=== PATIENT | female | born 1950 | race Caucasian/White ===

== ENCOUNTER → 2021-03-07 | Outpatient (CLI) | payer OTHER ==
[~2021-03-07] MED LIST: ACET325C5 PO; ANOR1AER PO; ASPI81TA86 PO; ECOT81TA5 PO; ERGO500029; EZET10TA21 PO; FENO48TA8 PO; FLUT1BLS8; FLUTISP; LEVO75TA4; LISI-898 PO; LISI20TA33; NASC1SPR NARES; PROAAER10 INH; SYNT125T PO; VARE1TA PO; VITA50005 PO
== END ==
LOC: M LABSMTC 09:54 → MERGE 09:54
PROVIDERS: ATTEND Anesthesiology
DX: Z01.812 Encounter for preprocedural laboratory examination (principal); Z11.52 Encounter for screening for COVID-19

== ENCOUNTER → 2021-03-07 | Outpatient (CLI) | payer OTHER ==
[2021-03-07 14:44] LABS: BASO # 0.1 10^3/uL (0.0-0.2); BASO % 0.6 % (0.0-1.0); EOS # 0.2 10^3/uL (0.0-0.5); EOS % 2.1 % (0.0-3.0); HEMATOCRIT 35.1 % (36.0-47.0); HEMOGLOBIN 10.7 g/dl (12.0-15.5); LYMPH # 0.8 10^3/uL (1.5-5.0); LYMPH % 9.8 % (24.0-44.0); MEAN CORPUSCULAR HEMOGLOBIN 33.4 pg (27.0-33.0); MEAN CORPUSCULAR HGB CONC 30.5 g/dl (32.0-36.5); MEAN CORPUSCULAR VOLUME 109.7 fl (80.0-96.0); MONO # 0.6 10^3/uL (0.0-0.8); MONO % 7.2 % (2.0-8.0); NEUTROPHILS # 6.8 10^3/uL (1.5-8.5); NEUTROPHILS % 80.1 % (36.0-66.0); PLATELET COUNT, AUTOMATED 456 10^3/uL (150-450); WHITE BLOOD COUNT 8.5 10^3/uL (4.0-10.0)
[2021-03-07 14:52] LABS: INR 0.95; PROTHROMBIN TIME 13.1 SECONDS (12.7-14.5)
[2021-03-07 14:53] LABS: PARTIAL THROMBOPLASTIN TIME 37.5 SECONDS (25.9-37.0)
[2021-03-07 15:14] LABS: BLOOD UREA NITROGEN 17 MG/DL (7-18); CALCIUM LEVEL 9.6 MG/DL (8.8-10.2); CARBON DIOXIDE LEVEL 31 MEQ/L (21-32); CHLORIDE LEVEL 98 MEQ/L (98-107); CREATININE FOR GFR 0.54 MG/DL (0.55-1.30); GLOMERULAR FILTRATION RATE > 60.0 (>45); GLUCOSE, FASTING 81 MG/DL (70-100); SODIUM LEVEL 136 MEQ/L (136-145)
--- NOTE | 2021-03-12 09:28 | REP ---
INDICATION: RT LUNG MASS COMPARISON: Multiple. The latest prior examinations 12/03/2020 and 01/29/2021 from an outside institution have just been made available for review. TECHNIQUE: Standard helical technique without contrast. FINDINGS: There is no significant change in the appearance of the mediastinum or pulmonary jason. No mass or adenopathy has developed. There are no pleural or pericardial effusions. There is no significant change in the appearance of the imaged upper abdomen or imaged osseous structures. Evaluation of the lung hope shows a significant increase in size in the spiculated right upper lobe mass seen posteriorly which previously measured 1.2 x 1 cm now measuring 3.1 x 2.8 cm and seen in conjunction with a contiguous new asymmetric density more superiorly measuring 4.2 x 2 cm. The additional spiculated nodule in the right lung apex is unchanged. The 2 spiculated nodules in the left lung upper lobe are unchanged. The scattered asymmetric densities seen throughout the lung hope along with irregular pleural based densities appear stable. Once again, there are marked emphysematous changes status quo. IMPRESSION: Advanced abnormal lung field findings as described above. Some are stable while others have significantly increased and still others are new. The scattered asymmetric densities are too numerous to count or individually assess as on the prior exam. <Electronically signed by Alistair Mcclelland > 03/12/21 [id number]
--- NOTE | 2021-03-12 10:50 | ROOR ---
Patient Name: Hannah Mccarty Procedure Date: 03/12/2021 8:59 AM Date of : 1950 Admit Type: Outpatient Age: 70 Note Status: Finalized Attending MD: Nuzhat Manuel MD Procedure: Bronchoscopy Indications: Right upper lobe mass, Right upper lobe nodule, Personal history of lung cancer Providers: Nuzhat Manuel MD (Doctor), Rajesh Garcia DO (1st Assisting Doctor) Referring MD: 1. NO/Unknown PCP 1. NO/Unknown PCP, Admin. (Referring MD) Requesting Physician: Medicines: Lidocaine 4% via nebulizer with Albuterol 2.5 mg, Cetacaine topical, Epinephrine 1 mg/10 mL topical 2 mL, General Anesthesia Complications: No immediate complications. Estimated blood loss: Minimal Procedure: Pre-Anesthesia Assessment: - Prior to the procedure, a History and Physical was performed, and patient medications and allergies were reviewed. The patient's tolerance of previous anesthesia was also reviewed. The risks and benefits of the procedure and the sedation options and risks were discussed with the patient. All questions were answered, and informed consent was obtained. Prior Anticoagulants: The patient has taken no previous anticoagulant or antiplatelet agents. ASA Grade Assessment: III - A patient with severe systemic disease. After reviewing the risks and benefits, the patient was deemed in satisfactory condition to undergo the procedure. - Patient identification and proposed procedure were verified prior to the procedure by the physician, the nurse, the anesthesiologist, the tower control operator and the decontamination technician. The procedure was verified in the procedure room. The Bronchoscope was introduced through the mouth, via the endotracheal tube (the patient was intubated for the procedure) and advanced to the tracheobronchial tree of both lungs. The procedure was accomplished without difficulty. The patient tolerated the procedure well. Findings: The trachea is of normal caliber. The lawrence is sharp. The entire tracheobronchial tree was examined to at least the first subsegmental level. Bronchial mucosa showed scattered pitting and webbing. There were thick cedillo mucoid secretions in left upper lobe. In the posterior segment of the right upper lobe there was a friable endobronchial mucosal lesion. [place] [employer] Electromagnetic navigation bronchoscopy was performed. The CT scan was used for planning purposes. A virtual bronchoscopic image was generated using the planning software. The targets in the apical segment of the right upper lobe and in the posterior segment of the right upper lobe were marked and pathways were created. After a complete airway exam, the Robotic EM navigation phase was then begun to locate the target lesion(s). Positioning centrally (in relation to the lesion) was confirmed using the Olympus radial probe US catheter. Endobronchial biopsies of a mucosal lesion were performed in the posterior segment of the right upper lobe using a forceps and sent for histopathology examination. For target 1 transbronchial biopsies of a nodule were performed in the apical segment of the right upper lobe using forceps and sent for histopathology examination. The procedure was guided by fluoroscopy. Transbronchial biopsy technique was selected because the sampling site was not visible endoscopically. For target 2 transbronchial biopsies of a mass were performed in the posterior segment of the right upper lobe using forceps and sent for histopathology examination. The procedure was guided by fluoroscopy. Transbronchial biopsy technique was selected because the sampling site was not visible endoscopically. Bronchoalveolar lavage was performed in the RUL posterior segment (B2) of the lung and sent for routine cytology and bacterial, AFB and fungal analysis. The return was blood-tinged. Mucous plugs were present in the return fluid. An endobronchial ultrasound endoscope was utilized in order to assist with fine needle aspiration in the subcarinal area. Transbronchial needle aspirations of a lymph node were performed in the subcarinal area using an Olympus EBUS-TBNA 21 gauge needle and sent for routine cytology. The procedure was guided by ultrasound. Impression: - Right upper lobe mass - Right upper lobe nodule - Personal history of lung cancer - Electromagnetic navigation bronchoscopy was performed. - An endobronchial biopsy was performed. - Transbronchial lung biopsies were performed. - Transbronchial lung biopsies were performed. - Bronchoalveolar lavage was performed. - Endobronchial ultrasound was performed. - A transbronchial needle aspiration was performed. Recommendation: - Await test results. Procedure Code(s): --- Professional --- 05488, Bronchoscopy, rigid or flexible, including fluoroscopic guidance, when performed; with transbronchial needle aspiration biopsy(s), trachea, main stem and/or lobar bronchus(i) 65500, Bronchoscopy, rigid or flexible, including fluoroscopic guidance, when performed; with transbronchial lung biopsy(s), single lobe 71414, Bronchoscopy, rigid or flexible, including fluoroscopic guidance, when performed; with bronchial alveolar lavage 32616, Bronchoscopy, rigid or flexible, including fluoroscopic guidance, when performed; with computer-assisted, image-guided navigation (List separately in addition to code for primary procedure[s]) 18426, Bronchoscopy, rigid or flexible, including fluoroscopic guidance, when performed; with transendoscopic endobronchial ultrasound (EBUS) during bronchoscopic diagnostic or therapeutic intervention(s) for peripheral lesion(s) (List separately in addition to code for primary procedure[s]) CPT copyright 2019 [employer]. All rights reserved. The codes documented in this report are preliminary and upon plug stitcher review may be revised to meet current compliance requirements. Attending Participation: I personally performed the entire procedure. Nuzhat Manuel MD 03/12/2021 10:50:41 AM Rajesh Garcia DO Number of Addenda: 0 Note Initiated On: 03/12/2021 8:59 AM
== END ==
LOC: M RAD 12:56
PROVIDERS: ATTEND Internal Medicine Pulmonary Disease
DX: C34.31 Malignant neoplasm of lower lobe, right bronchus or lung (principal); R91.1 Solitary pulmonary nodule; R91.8 Other nonspecific abnormal finding of lung field

== ENCOUNTER 2021-03-12 08:06 | Day surgery (SDC) | payer OTHER ==
[~2021-03-12] VITALS: Ht 157.5 cm; Wt 47.5 kg
[~2021-03-12 08:06] MED LIST changes: +ALBUTEROL SULFATE 2.5 MG/0.5 ML INH NEB SOLN INH ONE; +LIDOCAINE 1% MDV 20ML VIAL SQ PRN; +LIDOCAINE 4% INJ 5ML AMP NEB ONE; +LR 1,000 ML IV ONE
--- OUTSIDE RECORDS SUMMARY | 2021-03-12 08:11 | CCD | Summary of Care ---
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 Name Role Phone Gail Rosario MD PCP Reason for Referral * Diagnostic Radiology (Routine) Referred By Contact Referred To Contact Status Reason Specialty Diagnoses / Procedures Jay Echevarria MD [address] [address] Email: [email or web address] Authorized Radiology Diagnoses Malignant neoplasm of bronchus of right lower lobe P rocedures Pet with CT Imaging Skull to Thigh Electronically signed by Tomas Cunha MD at Reason for Visit * Reason Comments Follow-up Encounter Details Care Team Description Date Type Department Tomas Cunha MD [address] [address] [phone] Malignant neoplasm of bronchus of right lower lobe (Primary Dx) 12/03/2020 Office Visit [facility] RADIATION ONCOLOGY [address] [address] Allergies Comments Active Allergy Reactions Severity Noted Date Muscle weakness Fenofibrate Other (See 04/11/2019 Comments) [place] weak Ezetimibe Low 04/11/2019 documented as of this encounter (statuses as of 12/18/2020) Medications End Date Status Medication Sig Dispensed Refills Start Date Active levothyroxine (SYNTHROID, Take 50 mcg 0 LEVOTHROID) 125 MCG by mouth tablet Daily Alternates with 75 mcg Active aspirin 81 MG tablet Take 81 mg by 0 mouth daily Active vitamin D Take 50,000 0 (ERGOCALCIFEROL) 68023 Units by units capsule mouth every 7 (seven) days Active umeclidinium-vilanterol Inhale 1 puff 0 (ANORO ELLIPTA) 62.5-25 into the MCG/INH inhaler lungs daily Active fluticasone (FLONASE) 50 1 spray by 0 MCG/ACT nasal spray Nasal route daily Active Cyanocobalamin (NASCOBAL) by Nasal 0 500 MCG/0.1ML SOLN route Active Lisinopril 20 MG Oral Take 20 mg by 0 Tablet (ZESTRIL) mouth daily Active Prolia 60 MG/ML Inject 60 mg 0 Subcutaneous Solution into the skin Prefilled Syringe once (denosumab) Active Calcium Carbonate 600 MG Take 600 mg 0 Oral Tablet (OS-JIM) by mouth Two times daily with meals Active Pentoxifylline ER 400 MG Take 400 mg 0 Oral Tablet Extended by mouth Two Release (TRENTAL) Times Daily Active Trelegy Ellipta Inhale into 0 100-62.5-25 MCG/INH the lungs Aerosol Powder Breath daily Activated (Psnpoawnqpd-Zpvhpzdwu-Vq lant) documented as of this encounter (statuses as of 12/18/2020) Active Problems Problem Noted Date Malignant neoplasm of bronchus of right lower lobe 1 Cancer Staging: Clinical stage from 01/2018: Stage IA2 (cT1b, cN0, cM0) - Signed by Tomas Cunha MD on 03/2018 documented as of this encounter (statuses as of 12/18/2020) Social History Date Tobacco Use Types Packs/Day Years Used Former Smoker Cigarettes Smokeless Tobacco: Never Used Comments: quit smoking 01/2018 Comments Alcohol Use Standard Drinks/Week 2 cans of beer per day Yes 0 (1 standard drink = 0.6 o z pure alcohol) Sex Assigned at Date Recorded Not on file Date Recorded COVID-19 Exposure Response 12/03/2020 12:31 PM EDT In the last month, have you been in contact with No / Unsure someone who was confirmed or suspected to have Coronavirus / COVID-19? documented as of this encounter Last Filed Vital Signs Reading Time Taken Comments Vital Sign 129/71 12/03/2020 1:30 PM EDT Blood Pressure 81 12/03/2020 1:30 PM EDT Pulse - - Temperature 16 12/03/2020 1:30 PM EDT Respiratory Rate 99% 12/03/2020 1:30 PM EDT Oxygen Saturation - - Inhaled Oxygen Concentration - - Weight - - Height - - Body Mass Index documented in this encounter Progress Notes * Jay Echevarria MD - 12/03/2020 1:45 PM EDT Radiation Oncology Follow-up Visit Report Subjective: Diagnosis and Stage: lung, right lower lobe, NSCLC, adenocarcinoma, PD-L1 1%, cT 1bN0M0 stage IA2 Treatment: RLL to a dose of 5400 cGy in 1800 cGy fractions (3 fractions total). Completed 02/23/18 Performance Status: (0) Fully active, able to carry on all predisease performanc e without restriction HPI: Hannah Meier is a 69 y.o. female with right lower lobe lung cancer treated as above. She returns today for routine follow up. She is accompanied by her hus band. Interim History: Patient is doing fairly well today. She reports her breathing has been relativel y stable, has not had increased O2 requirements but has had her inhaler dose inc reased. Her weight is stable but she was instructed by her Family Medicine physi shaun to supplement her diet with 2 ensures per day. Activity level is unchanged. Appetite is good. She returns today to discuss her most recent CT chest results. Patient Care Team: Gail Rosario MD as PCP - General (Family Medicine) Rl Dowd MD (Radiation Oncology) Tomas Cunha MD as Consulting Physician (Radiation Oncology) Nuzhat Manuel MD (Internal Medicine) Allergies: Fenofibrate and Zetia [ezetimibe] Medications: Current Outpatient Medications Medication Sig Dispense Refill aspirin 81 MG tablet Take 81 mg by mouth daily levothyroxine (SYNTHROID, LEVOTHROID) 125 MCG tablet Take 50 mcg by mouth Daily Alternates with 75 mcg Lisinopril 20 MG Oral Tablet (ZESTRIL) Take 20 mg by mouth daily Pentoxifylline ER 400 MG Oral Tablet Extended Release (TRENTAL) Take 400 mg by mouth Two Times Daily Trelegy Ellipta 100-62.5-25 MCG/INH Aerosol Powder Breath Activated (Flut dapkcgp-Ckwkwrfhi-Chfjgn) Inhale into the lungs daily vitamin D (ERGOCALCIFEROL) 52768 units capsule Take 50,000 Units by mouth every 7 (seven) days Calcium Carbonate 600 MG Oral Tablet (OS-JIM) Take 600 mg by mouth Two ti mes daily with meals (Patient not taking: Reported on 09/26/2020) Cyanocobalamin (NASCOBAL) 500 MCG/0.1ML SOLN by Nasal route (Patient not taking: Reported on 08/20/2020) fluticasone (FLONASE) 50 MCG/ACT nasal spray 1 spray by Nasal route daily (Patient not taking: Reported on 09/26/2020) Prolia 60 MG/ML Subcutaneous Solution Prefilled Syringe (denosumab) Injec t 60 mg into the skin once (Patient not taking: Reported on 09/26/2020) umeclidinium-vilanterol (ANORO ELLIPTA) 62.5-25 MCG/INH inhaler Inhale 1 puff into the lungs daily (Patient not taking: Reported on 09/26/2020) No current facility-administered medications for this visit. Objective: Vitals - 1 value per visit 08/27/2020 09/26/2020 12/03/2020 SYSTOLIC 130 122 129 DIASTOLIC 81 70 71 PULSE 102 - 81 TEMPERATURE - - - RESPIRATIONS 18 18 16 Weight (kg) 48.626 kg 47.356 kg - HEIGHT - 154.9 cm - SPO2 93 98 99 BODY MASS INDEX - 19.73 kg/m2 - PAIN SCALE - SCORE 8 10 0 PAIN SCALE - LOCATION LEG - - Some recent data might be hidden Physical Examination General: alert and oriented, no acute distress HEENT: Normocephalic and atraumatic Cardiovascular: regular rate and rhythm, nl S1S2 Pulmonary: non-labored breathing, wheezes and fine crackles to right lung field Skin: skin warm and dry, no gross lesions upon examination Psychiatric: affect and mood congruent. Judgement and insight appear intact Interval Diagnostic Results: CT Chest 12/03/2020: Final read pending. Images reviewed with Dr. Cunha: New RUL spiculated lesion as well as interval growth of two other RUL lesions co ncerning for malignancy Assessment & Plan: Hannah Meier is a very pleasant 70 y.o. female with Stage IA2 ([id number]) NS CLC of the RLL treated with 54 Gy in 3 fractions completed 02/23/2018. Clinically she is doing well without symptoms related to prior treatment. Radiog raphically there is concern for new RUL lesion as well as progression of previou sly seen RUL lesions. We are still awaiting the final read of the CT chest, alice melendez on our review the findings are concerning enough to warrant further investig ation now. We will order PET/CT to be done in the next 2-3 weeks with follow-up shortly after to review the images. We will discuss next steps with her at that point. Hannah and her asked multiple insightful questions which were answe red to their satisfaction. We will plan to set up telemed appointment next week to review the final CT read with them. We would be happy to see or speak with th e patient at any time should there be any additional questions or concerns. The plan of care for pain includes the following intervention(s): the patient is not having any pain. The patient was seen, examined and counseled under the supervision of attending Dr. Cunha, Tomas Maloney MD. Jay Echevarria MD Radiation Oncology, PGY-3 ADDENDUM 12/11/2020 @1310: Called patient to discuss final read from CT chest. PET/CT was ordered on 12/04 an d is scheduled for 12/26/2020, with follow-up with Dr. Cunha on 12/30/2020. She u nderstands the purpose of the PET/CT will be to assess these new lesions for bot h interval change and for activity to rule out new malignant lesions. We will se e her on 12/30 to review PET/CT. CT Chest 12/03/2020: FINDINGS: Lower Neck/Axilla: No lymphadenopathy in the lower cervical and axillary station s. The visualized thyroid gland is unremarkable. Chest Wall/Osseous Structures: The chest wall is normal in appearance. There are no suspicious osseous lesions. Multilevel degenerative changes of thoracic spin e. Mediastinum And Pulmonary Elizabeth: Subcentimeter shotty lymph nodes in the mediasti num. No enlarged hilar lymphadenopathy, however evaluation is limited due to the lack of contrast. Heart, Pericardium And Great Vessels: The heart is normal in size. There is no p ericardial effusion. Multivessel coronary artery calcifications are noted. The t horacic aorta and main pulmonary artery are normal in size. There is calcified a therosclerotic disease in the thoracic aorta. Lungs, Pleura And Airways: The trachea and central airways are patent. Airway pa tency is demonstrated through the segmental level. No pleural effusion or pneumo thorax. There is advanced centrilobular emphysema. Stable calcified granuloma in the pos terior right upper lobe. There is no evidence of acute airspace disease. Pulmonary nodules as below: 1. Interval development of a spiculated mass in the right upper lobe measuring 8.0 x 2.8 cm (image 48). 2. Minimal interval increase in size of a solid spiculated mass in the right up per lobe measuring 1.6 x 0.8 cm (image 59) as compared to prior study when it me asured 1 x 0.8 cm. However there is interval filling of the cavity within the le tian. 3. Stable 8 mm pituitary mass within the right upper lobe (image 66). 4. Interval increase in size of a spiculated mass in the posterior right upper lobe measuring 1.1 x 1.5 cm (image 93), previously measuring 0.6 x 0.5 cm. 5. Stable 4 mm nodule in the right middle lobe (image 188). 6. Stable spiculated nodule in the right lower lobe measuring 0.8 x 0.7 cm (clemente ge 206), producing measuring 0.8 x 0.7 cm. 7. Interval development of a spiculated nodule in the right lung base measuring 6 mm (image 258). 8. Stable pleural-based opacities in the left upper lobe and the lingula (axial image 72, 187 respectively). 9. Interval development of airspace opacity in the left lung apex (image 74/316 ). Upper Abdomen: The visualized portions of the upper abdomen are unremarkable. IMPRESSION: 1. Interval development of new spiculated nodules and interval increase in size of previously seen nodules in the lungs as described above, predominantly withi n the right upper lobe. This could be infective/inflammatory in etiology. Howeve r considering patient's history of primary lung cancer, malignancy/metastatic di sease is in differential. A follow-up scan in 6 weeks is suggested. If the nodul es do not resolve or worsens in the interim, tissue sampling and/or PET/CT is muse ggested. 2. Stable appearance of the right lower lobe nodule subject to radiation treatm ent dating back to 11/28/2019. I saw and evaluated Hannah Maloney Renea. The case was discussed with the resident and I agree with the findings documented in the resident's note. Given the results of the CT chest we will go ahead and obtain a FDGPET/CT. documented in this encounter Plan of Treatment Care Team Description Date Type Specialty Tomas Cunha MD [address] [facility] [address] [place] [address] [phone] 12/26/2020 Appointment Radiology Tomas Cunha MD [address] [facility] [address] [place] [address] 12/30/2020 Office Visit Radiation Oncology Order Schedule Name Type Priority Associated Diag noses Expected: 12/04/2020, Expires: [address] Imaging Skull Imaging Routine Alejandra gnant neoplasm of to Thigh bronchus of right lower lobe Health Maintenance Due Date Last Done Comments Hepatitis C Screening (B. 1950 [id number]) MMR Vaccines (1 of 1 - [birth year]10/1951 Standard series) Pneumococcal Vaccine: 65+ 10[birth year]10/1956 Years (1 of 4 - PCV13) Pneumococcal Vaccine: 10[birth year]10/1956 Pediatrics (0 to 5 Years) and At-Risk Patients (6 to 64 Years) (1 of 4 - PCV13) DTaP,Tdap,and Td Vaccines 10/10/1958 (1 - Tdap) Breast Cancer Screening 2 10/10/2001 years Colon Cancer Screening 10 10/10/2001 yrs Osteoporosis Screening 2 10/10/2016 yr Varicella Vaccines (1 of 07/21/2019 05/26/2019 2 - 2-dose childhood series) Zoster Vaccines (2 of 2) 07/21/2019 05/26/2019 Influenza Vaccine 01/31/2021 03/18/2020, 03/15/2019, 03/14/2012, Additional history exists HIB Vaccines Aged Out No longer eligible based on patient's age to complete this topic Hepatitis A Vaccines Aged Out No longer eligibl e based on patient's age to complete this topic Hepatitis B Vaccines Aged Out No longer eligibl e based on patient's age to complete this topic IPV Vaccines Aged Out No longer eligible based on patient's age to complete this topic documented as of this encounter Results Not on filedocumented in this encounter Visit Diagnoses Diagnosis Malignant neoplasm of bronchus of right lower lobe - Primary documented in this encounter
--- OUTSIDE RECORDS SUMMARY | 2021-03-12 08:11 | CCD | Summary of Care ---
Author Author [facility] Organization [facility] Address Unknown Phone Unavailable Care Team Providers Care Ticket Maker Name Role Phone Gail Rosario MD PCP Reason for Referral * Diagnostic Radiology (Routine) Referred By Contact Referred To Contact Status Reason Specialty Diagnoses / Procedures Jay Echevarria MD [address] [address] Email: [email or web address] Open Radiology Diagnoses Lung nodule P rocedures CT Thorax without Contrast Electronically signed by Tomas Cunha MD at Reason for Visit * Reason Comments Follow-up Encounter Details Care Team Description Date Type Department Tomas Cunha MD [address] [address] [phone] Lung nodule (Primary Dx); Malignant neoplasm of bronchus of right lower lobe 12/30/2020 Telemedicine [facility] RADIATION ONCOLOGY [address] [phone] Allergies Comments Active Allergy Reactions Severity Noted Date Muscle weakness Fenofibrate Other (See 04/11/2019 Comments) [place] weak Ezetimibe Low 04/11/2019 documented as of this encounter (statuses as of 01/01/2021) Medications End Date Status Medication Sig Dispensed Refills Start Date Active levothyroxine (SYNTHROID, Take 50 mcg 0 LEVOTHROID) 125 MCG by mouth tablet Daily Alternates with 75 mcg Active aspirin 81 MG tablet Take 81 mg by 0 mouth daily Active vitamin D Take 50,000 0 (ERGOCALCIFEROL) 65152 Units by units capsule mouth every 7 [...] the lungs Aerosol Powder Breath daily Activated (Zqkxauzyegq-Srltqaews-Hj lant) documented as of this encounter (statuses as of 01/01/2021) Active Problems Problem Noted Date Malignant neoplasm of bronchus of right lower lobe 1 Cancer Staging: Clinical stage from 01/2018: Stage IA2 (cT1b, cN0, cM0) - Signed by Tomas Cunha MD on 03/2018 documented as of this encounter (statuses as of 01/01/2021) Immunizations Name Administration Dates Next Due documented as of this encounter Social History Date Tobacco Use Types Packs/Day Years Used Former Smoker Cigarettes Smokeless Tobacco: Never Used Comments: quit smoking 01/2018 Comments Alcohol Use Standard Drinks/Week 2 cans of beer per day Yes 0 (1 standard drink = 0.6 o z pure alcohol) Sex Assigned at Date Recorded Not on file Date Recorded COVID-19 Exposure Response 12/26/2020 9:02 AM EDT In the last month, have you been in contact with No / Unsure someone who was confirmed or suspected to have Coronavirus / COVID-19? documented as of this encounter Last Filed Vital Signs Reading Time Taken Comments Vital Sign - - Blood Pressure - - Pulse - - Temperature - - Respiratory Rate - - Oxygen Saturation - - Inhaled Oxygen Concentration 52.6 kg (116 lb) 12/30/2020 10:55 AM EDT Weight - - Height 21.92 09/26/2020 9:03 PM EDT Body Mass Index documented in this encounter Progress Notes * Jay Echevarria MD - 12/30/2020 11:45 AM EDT This is a telephonic visit which was performed without the use of video technolo gy due to patient inability to connect with video. The patient was informed of t he risks including security breach, technological failure, inability to perform a physical exam which could delay or prevent an accurate diagnosis, and potentia l complications from treatment decisions rendered over a telephonic platform. Th e patient understands and consented to the use of a telephonic visit/telephone c all. Time spent on chart review , image review and the telephonic visit today: 12 [facility] Radiation Oncology Follow-up Visit Report Subjective: Diagnosis [...] lobe lung cancer treated as above. She had an interval PET/CT to evaluate a new RUL nodule on CT chest. S he presents on telemed follow-up today to discuss the results. Interim History: Patient is doing well today. She denies any new complaints or concerns. Breathin g is stable. Energy and appetite are good. She is anxious to learn the results o f her PET/CT and next steps. Activity level unchanged. Patient Care Team: Gail Rosario MD as PCP - General (Family Medicine) Rl Dowd MD (Radiation Oncology) Tomas Cunha MD as Consulting Physician (Radiation Oncology) Nuzhat Manuel MD (Internal Medicine) Allergies: Fenofibrate and Zetia [ezetimibe] Medications: Current Outpatient Medications Medication Sig Dispense Refill aspirin 81 MG tablet Take 81 mg by mouth daily Calcium Carbonate 600 MG Oral Tablet (OS-JIM) Take 600 mg by mouth Two ti mes daily with meals (Patient not taking: Reported on 09/26/2020) Cyanocobalamin (NASCOBAL) 500 MCG/0.1ML SOLN by Nasal route (Patient not taking: Reported on 08/20/2020) fluticasone (FLONASE) 50 MCG/ACT nasal spray 1 spray by Nasal route daily (Patient not taking: Reported on 09/26/2020) levothyroxine (SYNTHROID, LEVOTHROID) 125 MCG tablet Take 50 mcg by mouth Daily Alternates with 75 mcg Lisinopril 20 MG Oral Tablet (ZESTRIL) Take 20 mg by mouth daily Pentoxifylline ER 400 MG Oral Tablet Extended Release (TRENTAL) Take 400 mg by mouth Two Times Daily Prolia 60 MG/ML Subcutaneous Solution Prefilled Syringe (denosumab) Injec t 60 mg into the skin once (Patient not taking: Reported on 09/26/2020) Trelegy Ellipta 100-62.5-25 MCG/INH Aerosol Powder Breath Activated (Flut ulstmhz-Eqrvjoszp-Qrpfyu) Inhale into the lungs daily umeclidinium-vilanterol (ANORO ELLIPTA) 62.5-25 MCG/INH inhaler Inhale 1 puff into the lungs daily (Patient not taking: Reported on 09/26/2020) vitamin D (ERGOCALCIFEROL) 77208 units capsule Take 50,000 Units by mouth every 7 (seven) days No current facility-administered medications for this visit. Objective: Vitals - 1 value per visit 09/26/2020 12/03/2020 12/30/2020 SYSTOLIC 122 129 - DIASTOLIC 70 71 - PULSE - 81 - TEMPERATURE - - - RESPIRATIONS 18 16 - Weight (kg) 47.356 kg - 52.617 kg HEIGHT 154.9 cm - - SPO2 98 99 - BODY MASS INDEX 19.73 kg/m2 - 21.92 kg/m2 PAIN SCALE - SCORE 10 0 0 PAIN SCALE - LOCATION - - - Some recent data might be hidden Interval Diagnostic Results: PET/CT 12/26/2020: FINDINGS: BLOOD POOL ACTIVITY LEVEL (Descending Thoracic Aorta): SUV max 2.4. SOFT TISSUE ACTIVITY LEVEL (Right Hepatic Lobe Parenchyma): SUV max 2.7. HEAD AND NECK: There is normal distribution of F-18 radiopharmaceutical in the visualized brain with no evidence of abnormal radiopharmaceutical uptake. It should be noted chiquis t a contrast enhanced CT or MRI is more sensitive for evaluation of brain masses . There is no FDG-avid disease or significant lymphadenopathy in the head and ne ck. The left maxillary sinus is partially opacified. There is deviation and angulati on of the nasal septum towards the left. There are bilateral atherosclerotic jim cifications involving the carotids. CHEST: Within the lungs, multiple nodules are again demonstrated in the bilateral lungs , as seen on the prior CT. The right upper lobe spiculated nodule measures appro ximately 1.9 cm and demonstrates an SUVmax of 5.3 concerning in appearance. Ther e is an additional lesion in the posterior right upper lobe with an SUVmax of 3. 1. There is a new opacity in the anterior left upper lobe which may represent muse bsegmental atelectasis in the setting of diffuse emphysematous lungs. Another region of FDG uptake is demonstrated in the lingula. This is similar to the prior examination and appears represent subsegmental atelectasis. The musculature and soft tissues of the chest wall are within normal limits. The re is no axillary lymphadenopathy. The mediastinal structures are midline and th e cardiac size is normal. There is no pericardial effusion. Atherosclerotic calc ifications are demonstrated in the aortic arch and its branches as well as in th e coronary vasculature. There is no mediastinal lymphadenopathy. A focus of incr eased radiotracer uptake is demonstrated at the right hilum, with an SUVmax of 3 .2. ABDOMEN AND PELVIS: A paucity of intra-abdominal fat limits evaluation of the intra-abdominal organs . Physiologic uptake of radiotracer is seen in the liver, pancreas, spleen, and the urinary system. Mild asymmetric radiotracer uptake in the left adrenal gland is likely physiologic. Again seen, are multiple calcific densities in the regio n of the pancreas. The bowel is nonobstructed and there is no gross abnormality. Atherosclerotic calcifications are demonstrated in the abdominal aorta, extendi ng inferiorly into the pelvic vasculature. MUSCULOSKELETAL: There is no FDG-avid or destructive bone lesions. Severe degenerative changes are again demonstrated in the lumbar spine, includin g osteophytosis and grade 1 anterolisthesis of L2 on L3. There is intervertebral disc space narrowing of L2-3, L3-4, and L4-5 with associated endplate sclerotic changes. IMPRESSION: 1. Spiculated right upper lobe lesion with FDG avidity suspicious for a pulmona ry neoplasm. An additional opacity with nonspecific FDG uptake is demonstrated i n the posterior right upper lobe. 2. Multiple focal airspace opacities in the left lung that likely represent air space disease or subsegmental atelectasis. FDG uptake in these regions is favore d to be inflammatory. Short interval follow-up with CT thorax is recommended. 3. Additional stable findings, as described above. Assessment & Plan: Hannah Meier is a very pleasant 70 y.o. female with Stage IA2 ([id number]) NS CLC of the RLL treated with 54 Gy in 3 fractions completed 02/23/2018. Clinically she is doing well without symptoms related to prior treatment. Radiog raphically there is concern for new RUL lesion as well as progression of previou sly seen RUL lesions. On PET/CT there was a concerning RUL nodule, as well as ot her areas in the left lung that were presumed to be inflammatory in nature. Haja mmendation was for repeat CT chest in 4 weeks to evaluate left lung nodules to r ule out malignancy. We discussed these results with her and she understood the i nformation received today. We will schedule her for CT chest without contrast to be done in 4 weeks with follow-up in our clinic 4-5 days later. We would be hap py to see or speak with the patient at any time should there be any additional q uestions or concerns. The plan of care for pain includes the following intervention(s): the patient is not having any pain. This patient was seen, evaluated, and counseled under the direct supervision of attending physician, Dr. Cunha, MD Jay Jensen MD Radiation Oncology, PGY-3 I was present during the entire tele-visit and evaluated Hannah Meier . T he case was discussed with the resident and I agree with the findings documented in the resident's note. documented in this encounter Nursing Notes * Evita Hooper, RN - 12/30/2020 11:45 AM EDT T/c made for pretelemedicine appt. I spoke mostly with pts andreas had di fficulty hearing my questions. He states she is doing okay, but has a cough and is often SOB with exertion. Denies any pain. documented in this encounter Plan of Treatment Order Schedule Name Type Priority Associated Diag noses Expected: 12/30/2020, Expires: 2 CT Thorax without Imaging Routine Lung nodule Contrast Health Maintenance Due Date Last Done Comments Hepatitis C Screening (B. 1950 [id number]) MMR Vaccines (1 of 1 - 10/10/1951 [...] 01/31/2021 03/18/2020, 03/15/2019, 03/14/2012, Additional history exists COVID-19 Vaccine Completed 07/24/2020, 07/03/2020 HIB Vaccines Aged Out No longer eligible [...] filedocumented in this encounter Visit Diagnoses Diagnosis Lung nodule - Primary Solitary pulmonary nodule Malignant neoplasm of bronchus of right lower lobe documented in this encounter
--- OUTSIDE RECORDS SUMMARY | 2021-03-12 08:11 | CCD | Continuity of Care Document ---
Author Author Hannah MATTSON M.D. Organization Unknown Address [address] [place] [address] Phone [phone] Care Team Providers Care Non Destructive Testing Technician Name Role Phone Gail Rosario M.D. [facility] [phone] Problems Active Problems Provider Date Deviated nasal septum Ervin James MD Onset: 04/01/2012 Sudden hearing loss Aba Reed MD Onset: 03/02/2016 Sensorineural hearing loss, bilateral Elroy Irving II, PA-C Onset: 04/20/2016 Social History Type Date Description Comments Sex Unknown ETOH Use 2 A Day Tobacco Use Start: 05/03/68 End: 10/31/17 Patient is a forme r smoker 2ppd x's 49 years Smoking Status Reviewed: 11/29/20 Patient is a former smoker 2p pd x's 49 years Allergies, Adverse Reactions, Alerts Description No Known Drug Allergies Medications Active Medications SIG Qnty Indications Ordering Provide r Date Trelegy Ellipta 200- 62.5-25mcg/Inh Aerosol inhale 1 puff by mouth every day 180units C34.31 Nuzhat Mattson M.D. 11/29/2020 Ventolin HFA 108(90Base) mcg/Act A erosol 1 puff every 6 hours as needed 8gm R91.8 Nuzhat Mattson M.D . 12/08/2017 Lisinopril 5mg Tablets 1 tab by mouth every night 90tabs Unknown Synthroid 50mcg Tablets 1 tab by mouth every day Unknown Aspir-Low 81mg Tablets DR 1 tab by mouth every day Unknown Fluticasone Propionate 50mcg/Act Suspension 2 sprays to each nostril daily Unknown Vitamin D (Ergocalciferol) 1.25 Ca psules 1 by mouth every week Unknown Oxygen Device 2L continuo us--Dr. Rosario Unknown Immunizations Description No Information Available Vital Signs Date Vital Result Comment 11/29/2020 12:48pm BP Systolic 108 mmHg BP Diastolic 76 mmHg Heart Rate 93 /min O2 % BldC Oximetry 932 % Height 62 inches 5'2" Weight 107.00 lb BMI (Body Mass Index) 19.6 kg/m2 [place] Body Weight 110 lb Weight 48.535 kg BSA (Body Surface Area) 1.47 m2 05/21/2020 11:26am BP Systolic 130 mmHg BP Diastolic 86 mmHg Heart Rate 80 /min O2 % BldC Oximetry 94 % Room Air Height 62 inches 5'2" Weight 118.00 lb BMI (Body Mass Index) 21.6 kg/m2 [place] Body Weight 110 lb Weight 53.525 kg BSA (Body Surface Area) 1.53 m2 Results Description No Information Available Procedures Date Code Description Status 11/29/2020 52931 Office/Outpatient Established Mo d MDM 30-39 Min Completed 11/29/2020 76177 Spirometry Completed Medical Devices Description No Information Available Encounters Type Date Location Provider Dx Diagnosis Office Visit 11/29/2020 1:00p [facility] Pulmonary/Thoracic K Nuzhat cerda M.D. C34.31 Malignant neoplasm of lower lobe, right bronchus or lung J44.9 Chronic obstructive pulmonar y disease, unspecified Z87.891 Personal history of nicotine dependence Assessments Date Code Description Provider 11/29/2020 C34.31 Malignant neoplasm of lower lobe , right bronchus or lung Nuzhat Mattson M.D. 11/29/2020 J44.9 Chronic obstructive pulmonary di sease, unspecified Nuzhat Mattson M.D. 11/29/2020 Z87.891 Personal history of nicotine dep endence Nuzhat Mattson M.D. Plan of Treatment Future Appointment(s):* 04/15/2021 1:00 pm - Nuzhat Mattson M.D. at [facility] Pulmonary/Thoracic 11/29/2020 - Nuzhat Mattson M.D.* C34.31 Malignant neoplasm of lower lobe, right bronchus or lung * J44.9 Chronic obstructive pulmonary disease, unspecified * Z87.891 Personal history of nicotine dependence * * New Medication:* Trelegy Ellipta 200-62.5-25 mcg/Inh * New Labs:* Flow Volume Loop/Spirometry, Scheduled: 04/15/21 * Follow up:* Will be getting another CT next week in [place]; please get disc for that and the prior CT. Follow up in 4-6 months with spirometry. Functional Status Description No Information Available Mental Status Description No Information Available Referrals Description No Information Available
--- OUTSIDE RECORDS SUMMARY | 2021-03-12 08:11 | CCD ---
Continuity of Care Document (CCD) Created on: 02/25/2021 Hannah Guerrero External Reference #: [id number] : 1950 Sex: Female Author Author Hannah MATTSON M.D. Organization Unknown Address [address] [place] [address] Phone [phone] Care Team Providers Care Tax Clerk Name Role Phone Gail Rosario M.D. [facility] [phone] Problems Active Problems Provider Date Deviated nasal septum Ervin James MD Onset: 04/01/2012 Sudden hearing loss Aba Reed MD Onset: 03/02/2016 Sensorineural hearing loss, bilateral Elroy Irving II, PA-C Onset: 04/20/2016 Social History Type Date Description Comments Sex Unknown ETOH Use 2 A Day Tobacco Use Start: 05/03/68 End: 10/31/17 Patient is a forme r smoker 2ppd x's 49 years Smoking Status Reviewed: 02/25/21 Patient is a former smoker 2p pd x's 49 years Allergies and adverse reactions Description No Known Drug Allergies Medications Active [...] every week Unknown Oxygen Device 2L continuo --Dr. Rosario Unknown Immunizations Description No Information Available Vital Signs Date Vital Result Comment 02/25/2021 11:22am BP Systolic 122 mmHg BP Diastolic 76 mmHg Heart Rate 87 /min O2 % BldC Oximetry 902 % Height 62 inches 5'2" Weight 105.00 lb BMI (Body Mass Index) 19.2 kg/m2 [place] Body Weight 110 lb Weight 47.628 kg BSA (Body Surface Area) 1.45 m2 11/29/2020 12:48pm BP Systolic 108 mmHg BP Diastolic 76 mmHg Heart Rate 93 /min O2 % BldC Oximetry 932 % Height 62 inches 5'2" Weight 107.00 lb BMI (Body Mass Index) 19.6 kg/m2 [place] Body Weight 110 lb Weight 48.535 kg BSA (Body Surface Area) 1.47 m2 Results Test Acquired Date Facility Test Result H/L Range Note [facility] 02/25/2021 [facility] SEE IMAGE FVC-Pred 2.79 L FVC-Pre 1.36 L FVC-%Pred-Pre 48 L FVC-LLN 2.14 L Fev1-Pred 2.11 L Fev1-Pre 0.70 L Fev1-%Pred-Pre 33 L Fev1-LLN 1.56 L Fev6-Pred 2.67 L Fev6-Pre 1.36 L Fev6-%Pred-Pre 50 L Fev6-LLN 2.03 L Rah6gzq-Jaln 76 % Pxg7cgq-Kmz 52 % Uak8ifa-%Pred-Pre 68 % Sud8alw-KZF 66 % Vxx5mwf-Cllz 96 % Hod6acn-Gqs 100 % Rnt1opa-%Pred-Pre 104 % FEFMax-Pred 5.42 L/E/sec FEFMax-Pre 1.43 L/E/sec FEFMax-%Pred-Pre 26 L/E/sec FEFMax-LLN 3.81 L/E/sec Rxm8921-Iakt 1.83 L/E/sec Fpp0345-Txi 0.37 L/E/sec Nkk8845-%Pred-Pre 19 L/E/sec Mwv2606-VUL 0.67 L/E/sec ExpTime-Pre 6.33 sec Hkt2bop7-Qtln 79 % Nnw8nco0-Ytc 52 % Zje4thg8-%Pred-Pre 65 % Eeq7cen6-SQL 70 % Procedures Date Code Description Status 11/29/2020 00716 Office/Outpatient Established Mo d MDM 30-39 Min Completed 11/29/2020 54410 Spirometry Completed Medical Devices Description No Information Available Encounters Type Date Location Provider Dx Diagnosis Office Visit 11/29/2020 1:00p [facility] Pulmonary/Thoracic K Nuzhat cerda M.D. C34.31 Malignant neoplasm of lower lobe, right bronchus or lung J44.9 Chronic obstructive pulmonar y disease, unspecified Z87.891 Personal history of nicotine dependence Assessments Date Code Description Provider 02/25/2021 C34.31 Malignant neoplasm of lower lobe , right bronchus or lung Nuzhat Mattson M.D. 02/25/2021 J44.9 Chronic obstructive pulmonary di sease, unspecified Nuzhat Mattson M.D. 02/25/2021 Z87.891 Personal history of nicotine dep Nuzhat Ibrahim M.D. 02/25/2021 R91.8 Other nonspecific abnormal findi ng of lung field Nuzhat Mattson M.D. 11/29/2020 C34.31 Malignant neoplasm of lower lobe , right bronchus or lung Nuzhat Mattson M.D. 11/29/2020 J44.9 Chronic obstructive pulmonary di sease, unspecified Nuzhat Mattson M.D. 11/29/2020 Z87.891 Personal history of nicotine dep endence Nuzhat Mattson M.D. Plan of Treatment 02/25/2021 - Nuzhat Mattson M.D.* C34.31 Malignant neoplasm of lower lobe, right bronchus or lung * J44.9 Chronic obstructive pulmonary disease, unspecified * Z87.891 Personal history of nicotine dependence * R91.8 Other nonspecific abnormal finding of lung field * * New Labs:* CBC W/Diff & PLT, Ordered: 02/25/21 * PT & PTT, Ordered: 02/25/21 * BMP W/Egfr, Ordered: 02/25/21 * Fungal Titers([facility]), Ordered: 02/25/21 * Follow up:* CT [facility] for bronch. lab order given to patient. Follow up in office after procedure. Functional Status Description No Information Available Mental Status Description No Information Available Referrals Description No Information Available
--- OUTSIDE RECORDS SUMMARY | 2021-03-12 08:13 | CCD ---
Author Author [facility] Organization [facility] Address Unknown Phone Unavailable Care Team Providers Care External Grinder Name Role Phone Nuzhat Manuel MD Unavailable Unavailable Nuzhat Manuel MD Unavailable Unavailable Nuzhat Manuel MD Unavailable Unavailable Nuzhat Manuel MD Unavailable Unavailable Nuzhat Manuel MD Unavailable Unavailable Nuzhat Manuel MD Unavailable Unavailable Nuzhat Manuel MD Unavailable Unavailable Nuzhat Manuel MD Unavailable Unavailable Nuzhat Manuel MD Unavailable Unavailable Nuzhat Manuel MD Unavailable Unavailable Nuzhat Manuel MD Unavailable Unavailable Nuzhat Manuel MD Unavailable Unavailable Nuzhat Manuel MD Unavailable Unavailable Nuzhat Manuel MD Unavailable Unavailable Nuzhat Manuel MD Unavailable Unavailable Nuzhat Manuel MD Unavailable Unavailable Nuzhat Manuel MD Unavailable Unavailable Nuzhat Manuel MD Unavailable Unavailable Nuzhat Manuel MD Unavailable Unavailable Nuzhat Manuel MD Unavailable Unavailable Nuzhat Manuel MD Unavailable Unavailable Nuzhat Manuel MD Unavailable Unavailable Nuzhat Manuel MD Unavailable Unavailable Nuzhat Manuel MD Unavailable Unavailable Nuzhat Manuel MD Unavailable Unavailable Nuzhat Manuel MD Unavailable Unavailable Nuzhat Manuel MD Unavailable Unavailable Nuzhat Manuel MD Unavailable Unavailable Nuzhat Manuel MD Unavailable Unavailable Nuzhat Manuel MD Unavailable Unavailable Makayla WEINSTEIN Unavailable Unavailable Chelsy Rosario MD Unavailable Unavailable Abraham, Chelsy Reynolds MD Unavailable Unavailable Abraham, Chelsy Reynolds MD Unavailable Unavailable Abraham, Chelsy Reynolds MD Unavailable Unavailable Abraham, Chelsy Reynolds MD Unavailable Unavailable Abraham, Chelsy Reynolds MD Unavailable Unavailable Abraham, Chelsy Reynolds MD Unavailable Unavailable Abraham, Chelsy Reynolds MD Unavailable Unavailable Abraham, Chelsy Reynolds MD Unavailable Unavailable Abraham, Chelsy Reynolds MD Unavailable Unavailable Abraham, Chelsy Reynolds MD Unavailable Unavailable Abraham, Chelsy Reynolds MD Unavailable Unavailable Abraham, Chelsy Reynolds MD Unavailable Unavailable Abraham, Chelsy Reynolds MD Unavailable Unavailable Abraham, Chelsy Reynolds MD Unavailable Unavailable Abraham, Chelsy Reynolds MD Unavailable Unavailable Abraham, Chelsy Reynolds MD Unavailable Unavailable Abraham, Chelsy Reynolds MD Unavailable Unavailable Abraham, Chelsy Reynolds MD Unavailable Unavailable Abraham, Chelsy Reynolds MD Unavailable Unavailable Abraham, Chelsy Reynolds MD Unavailable Unavailable Abraham, Chelsy Reynolds MD Unavailable Unavailable Abraham, Chelsy Reynolds MD Unavailable Unavailable Abraham, Chelsy Reynolds MD Unavailable Unavailable Abraham, Chelsy Reynolds MD Unavailable Unavailable Abraham, Chelsy Reynolds MD Unavailable Unavailable Abraham, Chelsy Reynolds MD Unavailable Unavailable Abraham, Chelsy Reynolds MD Unavailable Unavailable Abraham, Chelsy Reynolds MD Unavailable Unavailable Abraham, Chelsy Reynolds MD Unavailable Unavailable Abraham, Chelsy Reynolds MD Unavailable Unavailable Abraham, Chelsy Reynolds MD Unavailable Unavailable Abraham, Chelsy Reynolds MD Unavailable Unavailable Abraham, Chelsy Reynolds MD Unavailable Unavailable Abraham, Chelsy Reynolds MD Unavailable Unavailable Abraham, Chelsy Reynolds MD Unavailable Unavailable Abraham, Chelsy Reynolds MD Unavailable Unavailable Abraham, Chelsy Reynolds MD Unavailable Unavailable Abraham, Chelsy Reynolds MD Unavailable Unavailable Abraham, Chelsy Reynolds MD Unavailable Unavailable Abraham, Chelsy Reynolds MD Unavailable Unavailable Abraham, Chelsy Reynolds MD Unavailable Unavailable Abraham, Chelsy Reynolds MD Unavailable Unavailable Abraham, Chelsy Reynolds MD Unavailable Unavailable Abraham, Chelsy Reynolds MD Unavailable Unavailable Abraham, Chelsy Reynolds MD Unavailable Unavailable Abraham, Chelsy Reynolds MD Unavailable Unavailable Abraham, Chelsy Reynolds MD Unavailable Unavailable Abraham, Chelsy Reynolds MD Unavailable Unavailable Abraham, Chelsy Reynolds MD Unavailable Unavailable Abraham, Chelsy Reynolds MD Unavailable Unavailable Abraham, Chelsy Reynolds MD Unavailable Unavailable Abraham, Chelsy Reynolds MD Unavailable Unavailable Abraham, Chelsy Reynolds MD Unavailable Unavailable Abraham, Chelsy Reynolds MD Unavailable Unavailable Abraham, Chelsy Reynolds MD Unavailable Unavailable Abraham, Chelsy Reynolds MD Unavailable Unavailable Abraham, Chelsy Reynolds MD Unavailable Unavailable Abraham, Chelsy Reynolds MD Unavailable Unavailable Abraham, Chelsy Reynolds MD Unavailable Unavailable Abraham, Chelsy Reynolds MD Unavailable Unavailable Abraham, Chelsy Reynolds MD Unavailable Unavailable Abraham, Chelsy Reynolds MD Unavailable Unavailable Abraham, Chelsy Reyonlds MD Unavailable Unavailable Abraham, Chelsy Reynolds MD Unavailable Unavailable Abraham, Chelsy Reynolds MD Unavailable Unavailable Abraham, Chelsy Reynolds MD Unavailable Unavailable Abraham, Chelsy Reynolds MD Unavailable Unavailable Abraham, Chelsy Reynolds MD Unavailable Unavailable Abraham, Chelsy Reynolds MD Unavailable Unavailable Abraham, Chelsy Reynolds MD Unavailable Unavailable Abraham, Chelsy Reynolds MD Unavailable Unavailable Abraham, Chelsy Reynolds MD Unavailable Unavailable Abraham, Chelsy Reynolds MD Unavailable Unavailable Abraham, Chelsy Reynolds MD Unavailable Unavailable Abraham, Chelsy Reynolds MD Unavailable Unavailable Abraham, Chelsy Reynolds MD Unavailable Unavailable Haider PROCTOR Unavailable Unavailable Roseann Barrios MD Unavailable Unavailable Roseann Barrios MD Unavailable Unavailable Roseann Barrios MD Unavailable Unavailable Roseann Barrios MD Unavailable Unavailable Roseann Barrios MD Unavailable Unavailable Roseann Barrios MD Unavailable Unavailable Roseann Barrios MD Unavailable Unavailable Roseann Barrios MD Unavailable Unavailable Roseann Barrios MD Unavailable Unavailable Roseann Barrios MD Unavailable Unavailable Roseann Barrios MD Unavailable Unavailable Roseann Barrios MD Unavailable Unavailable Roseann Barrios MD Unavailable Unavailable Roseann Barrios MD Unavailable Unavailable Roseann Barrios MD Unavailable Unavailable Roseann Barrios MD Unavailable Unavailable Roseann Barrios MD Unavailable Unavailable Roseann Barrios MD Unavailable Unavailable Roseann Barrios MD Unavailable Unavailable Roseann Barrios MD Unavailable Unavailable Roseann Barrios MD Unavailable Unavailable Roseann Barrios MD Unavailable Unavailable Roseann Barrios MD Unavailable Unavailable DeBebonieio, S Rl MD Unavailable Unavailable Roseann Barrios MD Unavailable Unavailable Roseann Barrios MD Unavailable Unavailable Roseann Barrios MD Unavailable Unavailable Rosaenn Barrios MD Unavailable Unavailable Roseann Barrios MD Unavailable Unavailable Roseann Barrios MD Unavailable Unavailable Roseann Barrios MD Unavailable Unavailable Roseann Barrios MD Unavailable Unavailable Roseann Barrios MD Unavailable Unavailable Roseann Barrios MD Unavailable Unavailable Roseann Barrios MD Unavailable Unavailable Roseann Barrios MD Unavailable Unavailable Roseann Barrios MD Unavailable Unavailable Roseann Barrios MD Unavailable Unavailable Yen HINDS MD Unavailable Unavailable Yen HINDS MD Unavailable Unavailable Yen HINDS MD Unavailable Unavailable Yen HINDS MD Unavailable Unavailable Yen HINDS MD Unavailable Unavailable Yen HINDS MD Unavailable Unavailable Yen HINDS MD Unavailable Unavailable Yen HINDS MD Unavailable Unavailable Yen HINDS MD Unavailable Unavailable Yen HINDS MD Unavailable Unavailable Yen HINDS MD Unavailable Unavailable Yen HINDS MD Unavailable Unavailable Yen HINDS MD Unavailable Unavailable Yen HINDS MD Unavailable Unavailable Yen HINDS MD Unavailable Unavailable Yen HINDS MD Unavailable Unavailable Yen HINDS MD Unavailable Unavailable Yen HINDS MD Unavailable Unavailable Yen HINDS MD Unavailable Unavailable Yen HINDS MD Unavailable Unavailable Yen HINDS MD Unavailable Unavailable Yen HINDS MD Unavailable Unavailable Yen HINDS MD Unavailable Unavailable Yen HINDS MD Unavailable Unavailable Yen HINDS MD Unavailable Unavailable Yen HINDS MD Unavailable Unavailable Yen HINDS MD Unavailable Unavailable Yen HINDS MD Unavailable Unavailable Yen HINDS MD Unavailable Unavailable Yen HINDS MD Unavailable Unavailable Yen HINDS MD Unavailable Unavailable Yen HINDS MD Unavailable Unavailable Yen HINDS MD Unavailable Unavailable Yen HINDS MD Unavailable Unavailable Yen HINDS MD Unavailable Unavailable Yen HINDS MD Unavailable Unavailable Yen HINDS MD Unavailable Unavailable Yen HINDS MD Unavailable Unavailable Yen HINDS MD Unavailable Unavailable Yen HINDS MD Unavailable Unavailable Yen HINDS MD Unavailable Unavailable Yen HINDS MD Unavailable Unavailable Yen HINDS MD Unavailable Unavailable Yen HINDS MD Unavailable Unavailable Yen HINDS MD Unavailable Unavailable Yen HINDS MD Unavailable Unavailable Yen HINDS MD Unavailable Unavailable Yen HINDS MD Unavailable Unavailable Yen HINDS MD Unavailable Unavailable Yen HINDS MD Unavailable Unavailable Yen HINDS MD Unavailable Unavailable Yen HINDS MD Unavailable Unavailable Yen HINDS MD Unavailable Unavailable Yen HINDS MD Unavailable Unavailable Yen HINDS MD Unavailable Unavailable Yen HINDS MD Unavailable Unavailable Yen HINDS MD Unavailable Unavailable Yen HINDS MD Unavailable Unavailable Yen HINDS MD Unavailable Unavailable Yen HINDS MD Unavailable Unavailable Yen HINDS MD Unavailable Unavailable Yen HINDS MD Unavailable Unavailable Yen HINDS MD Unavailable Unavailable Yen HINDS MD Unavailable Unavailable Yen HINDS MD Unavailable Unavailable Yen HINDS MD Unavailable Unavailable Abraham, Chelsy Reynolds MD Unavailable Unavailable Abraham, Chelsy Reynolds MD Unavailable Unavailable Abraham, Chelsy Reynolds MD Unavailable Unavailable Abraham, Chelsy Reynolds MD Unavailable Unavailable Abraham, Chelsy Reynolds MD Unavailable Unavailable Abraham, Chelsy Reynolds MD Unavailable Unavailable Abraham, Chelsy Reynolds MD Unavailable Unavailable Abraham, Chelsy Reynolds MD Unavailable Unavailable Abraham, Chelsy Reynolds MD Unavailable Unavailable Abraham, Chelsy Reynolds MD Unavailable Unavailable Abraham, Chelsy Reyonlds MD Unavailable Unavailable Abraham, Chelsy Reynolds MD Unavailable Unavailable Abraham, Chelsy Reynodls MD Unavailable Unavailable Abraham, Chelsy Reynolds MD Unavailable Unavailable Abraham, Chelsy Reynolds MD Unavailable Unavailable Abraham, Chelsy Reynolds MD Unavailable Unavailable Abraham, Chelsy Reynolds MD Unavailable Unavailable Abraham, Chelsy Reynolds MD Unavailable Unavailable Abraham, Chelsy Reynolds MD Unavailable Unavailable Abraham, Chelsy Reynolds MD Unavailable Unavailable Abraham, Chelsy Reynolds MD Unavailable Unavailable Abraham, Chelsy Reynolds MD Unavailable Unavailable Abraham, Chelsy Reynolds MD Unavailable Unavailable Abraham, Chelsy Reynolds MD Unavailable Unavailable Abraham, Chelsy Reynolds MD Unavailable Unavailable Abraham, Chelys Reynolds MD Unavailable Unavailable Abraham, Chelsy Reynolds MD Unavailable Unavailable Abraham, Chelsy Reynolds MD Unavailable Unavailable Abraham, Chelsy Reynolds MD Unavailable Unavailable Abraham, Chelsy Reynolds MD Unavailable Unavailable Abraham, Chelsy Reynolds MD Unavailable Unavailable Abraham, Chelsy Reynolds MD Unavailable Unavailable Abraham, Chelsy Reynolds MD Unavailable Unavailable Abraham, Chelsy Reynolds MD Unavailable Unavailable Abraham, Chelsy Reynolds MD Unavailable Unavailable Abraham, Chelsy Reynolds MD Unavailable Unavailable Abraham, Chelsy Reynolds MD Unavailable Unavailable Abraham, Chelsy Reynolds MD Unavailable Unavailable Abraham, Chelsy Reynolds MD Unavailable Unavailable Abraham, Chelsy Reynolds MD Unavailable Unavailable Abraham, Chelsy Reynolds MD Unavailable Unavailable Abraham, Chelsy Reynolds MD Unavailable Unavailable Abraham, Chelsy Reynolds MD Unavailable Unavailable Abraham, Chelsy Reynolds MD Unavailable Unavailable Abraham, Chelsy Reynolds MD Unavailable Unavailable Abraham, Chelsy Reynolds MD Unavailable Unavailable Abraham, Chelsy Reynolds MD Unavailable Unavailable Abraham, Chelsy Reynolds MD Unavailable Unavailable Abraham, Chelsy Reynolds MD Unavailable Unavailable Abraham, Chelsy Reynolds MD Unavailable Unavailable Abraham, Chelsy Reynolds MD Unavailable Unavailable Abraham, Chelsy Reynolds MD Unavailable Unavailable Abraham, Chelsy Reynolds MD Unavailable Unavailable Abraham, Chelsy Reynolds MD Unavailable Unavailable Abraham, Chelsy Reynolds MD Unavailable Unavailable Abraham, Chelsy Reynolds MD Unavailable Unavailable Abraham, Chelsy Reynolds MD Unavailable Unavailable Abraham, Chelsy Reynolds MD Unavailable Unavailable Abraham, Chelsy Reynolds MD Unavailable Unavailable Abraham, Chelsy Reynolds MD Unavailable Unavailable Abraham, Chelsy Reynolds MD Unavailable Unavailable Abraham, Chelsy Reynolds MD Unavailable Unavailable Abraham, Chelsy Reynolds MD Unavailable Unavailable Abraham, Chelsy Reynolds MD Unavailable Unavailable Abraham, Chelsy Reynolds MD Unavailable Unavailable Abraham, Chelsy Reynolds MD Unavailable Unavailable Abraham, Chelsy Reynolds MD Unavailable Unavailable Abraham, Chelsy Reynolds MD Unavailable Unavailable Abraham, Chelsy Reynolds MD Unavailable Unavailable Abraham, Chelsy Reynolds MD Unavailable Unavailable Abraham, Chelsy Reynolds MD Unavailable Unavailable Abraham, Chelsy Reynolds MD Unavailable Unavailable Abraham, Chelsy Reynolds MD Unavailable Unavailable Abraham, Chelsy Reynolds MD Unavailable Unavailable Abraham, Chelsy Reynolds MD Unavailable Unavailable Abraham, Chelsy Reynolds MD Unavailable Unavailable Chelsy Rosario MD Unavailable Unavailable THAD, J ELAN DPM PC Unavailable Unavailable THAD, J ELAN DPM PC Unavailable Unavailable THAD, J ELAN DPM PC Unavailable Unavailable THAD, J ELAN DPM PC Unavailable Unavailable THAD, J ELAN DPM PC Unavailable Unavailable THAD, J ELAN DPM PC Unavailable Unavailable THAD, J ELAN DPM PC Unavailable Unavailable THAD, J ELAN DPM PC Unavailable Unavailable THAD, J ELAN DPM PC Unavailable Unavailable THAD, J ELAN DPM PC Unavailable Unavailable THAD, J ELAN DPM PC Unavailable Unavailable THAD, J ELAN DPM PC Unavailable Unavailable THAD, J ELAN DPM PC Unavailable Unavailable THAD, J ELAN DPM PC Unavailable Unavailable THAD, J ELAN DPM PC Unavailable Unavailable THAD, J ELAN DPM PC Unavailable Unavailable THAD, J ELAN DPM PC Unavailable Unavailable THAD, J LEAN DPM PC Unavailable Unavailable THAD, J ELAN DPM PC Unavailable Unavailable THAD, J ELAN DPM PC Unavailable Unavailable THAD, J ELAN DPM PC Unavailable Unavailable THAD, J ELAN DPM PC Unavailable Unavailable THAD, J ELAN DPM PC Unavailable Unavailable THAD, J ELAN DPM PC Unavailable Unavailable THAD, J ELAN DPM PC Unavailable Unavailable THAD, J ELAN DPM PC Unavailable Unavailable THAD, J ELAN DPM PC Unavailable Unavailable THAD, J ELAN DPM PC Unavailable Unavailable Haider AMOS MD Unavailable Unavailable Haider AMOS MD Unavailable Unavailable Haider AMOS MD Unavailable Unavailable Haider AMOS MD Unavailable Unavailable Haider AMOS MD Unavailable Unavailable Haider AMOS MD Unavailable Unavailable Haider AMOS MD Unavailable Unavailable Haider AMOS MD Unavailable Unavailable Haider AMOS MD Unavailable Unavailable Haider AMOS MD Unavailable Unavailable Haider AMOS MD Unavailable Unavailable Haider AMOS MD Unavailable Unavailable Haider AMOS MD Unavailable Unavailable Haider AMOS MD Unavailable Unavailable Haider AMOS MD Unavailable Unavailable Haider AMOS MD Unavailable Unavailable Haider AMOS MD Unavailable Unavailable Haider AMOS MD Unavailable Unavailable Haider AMOS MD Unavailable Unavailable Haider AMOS MD Unavailable Unavailable Haider AMOS MD Unavailable Unavailable Haider AMOS MD Unavailable Unavailable BETTE, A MARIE MD Unavailable Unavailable BETTE, A MARIE MD Unavailable Unavailable BETTE, A MARIE MD Unavailable Unavailable BETTE, A MARIE MD Unavailable Unavailable BETTE, A MARIE MD Unavailable Unavailable BETTE, A MARIE MD Unavailable Unavailable BETTE, A MARIE MD Unavailable Unavailable BETTE, A MARIE MD Unavailable Unavailable BETTE, A MARIE MD Unavailable Unavailable BETTE, A MARIE MD Unavailable Unavailable BETTE, A MARIE MD Unavailable Unavailable BETTE, A MARIE MD Unavailable Unavailable BETTE, A MARIE MD Unavailable Unavailable BETTE, A MARIE MD Unavailable Unavailable BETTE, A MARIE MD Unavailable Unavailable BETTE, A MARIE MD Unavailable Unavailable BETTE, A MARIE MD Unavailable Unavailable BETTE, A MARIE MD Unavailable Unavailable BETTE, A MARIE MD Unavailable Unavailable BETTE, A MARIE MD Unavailable Unavailable BETTE, A MARIE MD Unavailable Unavailable BETTE, A MARIE MD Unavailable Unavailable BETTE, A MARIE MD Unavailable Unavailable BETTE, A MARIE MD Unavailable Unavailable BETTE, A MARIE MD Unavailable Unavailable BETTE, A MARIE MD Unavailable Unavailable BETTE, A MARIE MD Unavailable Unavailable BETTE, A MARIE MD Unavailable Unavailable BETTE, A MARIE MD Unavailable Unavailable BETTE, A MARIE MD Unavailable Unavailable BETTE, A MARIE MD Unavailable Unavailable BETTE, A MARIE MD Unavailable Unavailable BETTE, A MARIE MD Unavailable Unavailable BETTE, A MARIE MD Unavailable Unavailable BETTE, A MARIE MD Unavailable Unavailable BETTE, A MARIE MD Unavailable Unavailable BETTE, A MARIE MD Unavailable Unavailable Re-disclosure Warning The records that you are about to access may contain information from federally-assisted alcohol or drug abuse programs. If such information is present, then the following federally mandated warning applies: This information has been disclosed to you from records protected by federal confidentiality rules (42 CFR part 2). The federal rules prohibit you from making any further disclosure of this information unless further disclosure is expressly permitted by the written consent of the person to whom it pertains or as otherwise permitted by 42 CFR part 2. A general authorization for the release of medical or other information is NOT sufficient for this purpose. The Federal rules restrict any use of the information to criminally investigate or prosecute any alcohol or drug abuse patient.The records that you are about to access may contain highly sensitive health information, the redisclosure of which is protected by Article 27-F of the [facility] Public Health law. If you continue you may have access to information: Regarding HIV / AIDS; Provided by facilities licensed or operated by the [facility] Office of Mental Health; or Provided by the [facility] Office for People With Developmental Disabilities. If such information is present, then the following [facility] mandated warning applies: This information has been disclosed to you from confidential records which are protected by state law. State law prohibits you from making any further disclosure of this information without the specific written consent of the person to whom it pertains, or as otherwise permitted by law. Any unauthorized further disclosure in violation of state law may result in a fine or assisted sentence or both. A general authorization for the release of medical or other information is NOT sufficient authorization for further disc losure. Allergies and Adverse Reactions Type Description Substance Reaction Status Data Source(s ) No Known Drug Allergies No Known Drug Allergies [facility] No Known Food Allergies No Known Food Allergies [facility] Propensity to adverse reactions seasonal seasonal [facility] Family History Family Member Name Family Member Gender Family Member Status Date o f Status Description Data Source(s) Unknown Male Problem [facility] ([facility]) () Unknown Unknown Problem [facility] ([facility], ) Unknown Unknown Problem [facility] ([facility], ) Encounters Encounter Providers Location Date Indications Data Source(s ) Outpatient Attender: MARIE AMOS MD 03/25/2021 12:00:00 AM [facility] Outpatient Referrer: JOEY WEINSTEIN 03/19/2021 12:00:00 AM [facility] Outpatient Attender: JOEY Calderon-SANDIE 02/05/2021 03:41:07 PM T [facility] Outpatient Attender: MARIE AMOS MDReferrer: Rl Calderon-SANDIE 02/04/2021 12:00:00 AM EDT - 02/04/2021 12:23:38 PM EDT follow up [facility] follow up Outpatient Attender: ELAN WRIGHTM PCConsultant: Dasha Rosario MD 02/03/2021 01:07:00 PM EDT - 02/03/2021 01:07:00 PM EDT [facility] Outpatient Referrer: MARIE AMOS MD 01/29/2021 12 :00:00 AM EDT Solitary pulmonary nodule [facility] Solitary pulmonary nodule Outpatient Attender: MARIE AMOS MDReferrer: Rl lazaro MD [facility] 12/30/2020 12:00:00 AM EDT - 12/30/2020 02:44:49 PM EDT follow up [facility] follow up Outpatient Referrer: BETHANY PROCTOR 12/26/2020 12 :00:00 AM EDT Malignant neoplasm of lower lobe, right bronchus or lung [facility] Malignant neoplasm of lower lobe, right bronchus or lung Outpatient Attender: Renate Rosario MDConsultant: Renate grider MD 12/20/2020 09:12:08 AM EDT - 12/23/2020 08:27:00 AM EDT [facility] Patient discharged. Outpatient Referrer: MARIE AMOS MD 07/2020 12:00:00 AM EDT - 12/03/2020 11:59:00 PM EDT Malignant neoplasm of lower lobe, right bronchus or sherine ng [facility] Malignant neoplasm of lower lobe, right bronchus or lung Outpatient Attender: MARIE AMOS MDReferrer: Rl lazaro MD [facility] 12/03/2020 12:00:00 AM EDT - 12/03/2020 02:45:57 PM EDT follow up [facility] follow up Outpatient Attender: Nuzhat Reed/Miguel/Jacob/Henry diaz 11/29/2020 01:00:00 PM EDT [facility] ([facility] ) <td ID="encounterTypeDescriptionID1">MED ICARE ANNUAL WELLNESS/RISK ASSESSMENT</td><td>Renate Rosario MD</td><td>Family Medicine [facility]</td><td>11/21/2020</td><td>12:58PM</td><td>2:23PM</td><td><content ID="encounterDiagnosisID1-0">Current Smoker</content>, <content ID="encounterDiagnosisID1-1">Visit For: Screening Exam Ischemic Heart Disease</content>, <content ID="encounterDiagnosisID1-2">Visit For: Screening Exam Hypertension</content>, <content ID="encounterDiagnosisID1-3">Visit For: Screening Exam Cardiovascular Disorders</content>, <content ID="encounterDiagnosisID1-4">Routine History & Physical Senior Citizen with Abnormal 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</content>, <content ID="encounterDiagnosisID1-5">Screening For Diabetes Mellitus</content></td>Outpatient Attender: Renate Rosario MD [facility] 11/21/2020 12:58:00 PM EDT - 11/21/2020 02:23:00 PM ED T Screening For Diabetes MellitusRoutine History & Physical Senior Citizen with Abnormal FindingsVisit For: Screening Exam Cardiovascular DisordersVisit For: Screening Exam HypertensionVisit For: Screening Exam Ischemic Heart Disease Current SmokerScreening For Diabetes MellitusRoutine History & Physical Senior Citizen with Abnormal FindingsVisit For: Screening Exam Cardiovascular DisordersTobacco UseRpemiscot memorial health systemsine History and Physical Senior Citizen (65-80 Yrs)Visit For: Screening Exam HypertensionVisit For: Screening Exam Ischemic Heart DiseaseCurrent Smoker [facility] ([facility]) Screening For Diabetes Mellitus Routine History & Physical Senior [employer] n with Abnormal Findings Visit For: Screening Exam Cardiovascular Disorders Visit For: Screening Exam Hypertension Visit For: Screening Exam Ischemic Heart Disease Current Smoker Screening For Diabetes Mellitus Routine History & Physical Senior Citize n with Abnormal Findings Visit For: Screening Exam Cardiovascular Disorders Tobacco Use Routine History and Physical Senior [place] (65-80 Yrs) Visit For: Screening Exam Hypertension Visit For: Screening Exam Ischemic Heart Disease Current Smoker Outpatient<td ID="encounterTypeDescripti onID0">ANNUAL PHYSICAL EXAM</td><td>Renate Rosario MD</td><td>[facility]</td><td>11/21/2020</td><td>12:58PM</td><td>2:23PM</td><td><content ID="encounterDiagnosisID0-0">Peripheral Vascular Disease</content>, <content ID="encounterDiagnosisID0-1">Hypothyroidism Postprocedural</content>, <content ID="encounterDiagnosisID0-2">Sensorineural Hearing Loss Bilateral</content>, <content ID="encounterDiagnosisID0-3">Lung Neoplasm Malignant Adenocarcinoma</content>, <content ID="encounterDiagnosisID0-4">Chronic Obstructive Pulmonary Disease</content>, <content ID="encounterDiagnosisID0- 5">Anemia Macrocytic</content>, <content ID="encounterDiagnosisID0-6">Osteoporosis</content>, <content ID="encounterDiagnosisID0-7">Nicotine Dependence</content>, <content ID="encounterDiagnosisID0-8">Routine History and Physical Senior Citizen (65-80 Yrs)</content>, <content ID="encounterDiagnosisID0-9">Tobacco Use</content>, <content ID="encounterDiagnosisID0-10">Large Intestine Neoplasm, Benign - Hyperplastic Polyp</content></td> Attender: Renate Rosario MD [facility], 11/21/2020 12:58:00 PM EDT - 11/21/2020 02:23:00 PM ED T Tobacco UseRoutine History and Physical Senior Citizen (65-80 Yrs)Nicotine DependenceAnemia MacrocyticSensorineural Hearing Loss BilateralHypothyroidism PostproceduralPeripheral Vascular DiseaseTobacco UseRoutine History and Physical Senior Citizen (65-80 Yrs)Nicotine DependenceAnemia MacrocyticSensorineural Hearing Loss BilateralHypothyroidism PostproceduralPeripheral Vascular DiseaseTobacco UseRoutine History and Physical Senior Citizen (65-80 Yrs)Nicotine DependenceAnemia MacrocyticSensorineural Hearing Loss BilateralHypothyroidism PostproceduralPeripheral Vascular DiseaseLung Neoplasm Malignant AdenocarcinomaLung Neoplasm Malignant AdenocarcinomaLung Neoplasm Malignant AdenocarcinomaOsteoporosisOsteoporosisOsteoporosisChronic Obstructive Pulmonary DiseaseChronic Obstructive Pulmonary DiseaseChronic Obstructive Pulmonary DiseaseLarge Intestine Neoplasm, Benign - Hyperplastic PolypLarge Intestine Neoplasm, Benign - Hyperplastic PolypLarge Intestine Neoplasm, Benign - Hyperplastic Polyp [facility]) Tobacco Use Routine History and Physical Senior [place] (65-80 Yrs) Nicotine Dependence Anemia Macrocytic Sensorineural Hearing Loss Bilateral Hypothyroidism Postprocedural Peripheral Vascular Disease Tobacco Use Routine History and Physical Senior [place] (65-80 Yrs) Nicotine Dependence Anemia Macrocytic Sensorineural Hearing Loss Bilateral Hypothyroidism Postprocedural Peripheral Vascular Disease Tobacco Use Routine History and Physical Senior [place] (65-80 Yrs) Nicotine Dependence Anemia Macrocytic Sensorineural Hearing Loss Bilateral Hypothyroidism Postprocedural Peripheral Vascular Disease Lung Neoplasm Malignant Adenocarcinoma Lung Neoplasm Malignant Adenocarcinoma Lung Neoplasm Malignant Adenocarcinoma Osteoporosis Osteoporosis Osteoporosis Chronic Obstructive Pulmonary Disease Chronic Obstructive Pulmonary Disease Chronic Obstructive Pulmonary Disease Large Intestine Neoplasm, Benign - Hyper plastic Polyp Large Intestine Neoplasm, Benign - Hyper plastic Polyp Large Intestine Neoplasm, Benign - Hyper plastic Polyp Outpatient Attender: ELAN ONEIL DPM PCConsultant: Dasha Rosario MD 11/14/2020 01:19:00 PM EDT - 11/14/2020 01:19:00 PM EDT [facility] Outpatient Attender: Renate Rosario MDConsultant: Renate grider MD 11/14/2020 11:59:00 AM EDT - 11/14/2020 12:59:00 PM EDT [facility] <td ID="encounterTypeDescriptionID2">STA NDARD OV</td><td>Renate Rosario MD</td><td>[facility],</td><td>10/09/2020</td><td>11:22AM</td><td>11:59AM</td><td><content ID="encounterDiagnosisID2-0">Peripheral Vascular Disease</content>, <content ID="encounterDiagnosisID2-1">Chronic Obstructive Pulmonary Disease</content>, <content ID="encounterDiagnosisID2-2">Menopause</content>, <content ID="encounterDiagnosisID2-3">Essential Hypertension Benign</content></td>Outpatient Attender: Renate Rosario MD [facility] 10/09/2020 11:22:00 AM EDT - 10/09/2020 11:59:00 AM ED T Peripheral Vascular DiseasePeripheral Vascular DiseasePeripheral Vascular DiseasePeripheral Vascular DiseaseEssential Hypertension BenignMenopauseEssential Hypertension BenignMenopauseEssential Hypertension BenignMenopauseEssential Hypertension BenignMenopauseChronic Obstructive Pulmonary DiseaseChronic Obstructive Pulmonary DiseaseChronic Obstructive Pulmonary DiseaseChronic Obstructive Pulmonary Disease [facility] ([facility]) Peripheral Vascular Disease Peripheral Vascular Disease Peripheral Vascular Disease Peripheral Vascular Disease Essential Hypertension Benign Menopause Essential Hypertension Benign Menopause Essential Hypertension Benign Menopause Essential Hypertension Benign Menopause Chronic Obstructive Pulmonary Disease Chronic Obstructive Pulmonary Disease Chronic Obstructive Pulmonary Disease Chronic Obstructive Pulmonary Disease Outpatient Attender: JACOBO HINDS MD 09/24/2020 11:45: 00 AM [facility] <td ID="encounterTypeDescriptionID3">STA NDARD OV</td><td>Renate Rosario MD</td><td>[facility]</td><td>09/11/2020</td><td>10:44AM</td><td>11:30AM</td><td><content ID="encounterDiagnosisID3-0">Weight Loss</content>, <content ID="encounterDiagnosisID3-1">Peripheral Vascular Disease</content>, <content ID="encounterDiagnosisID3-2">Hypothyroidism</content>, <content ID="encounterDiagnosisID3-3">Chronic Obstructive Pulmonary Disease</content>, <content ID="encounterDiagnosisID3-4">Dysphagia</content>, <content ID="encounterDiagnosisID3-5">Essential Hypertension Benign</content></td>Outpatient Attender: Renate Rosario MD [facility] 09/11/2020 10:44:00 AM EDT - 09/11/2020 11:30:00 AM ED T DysphagiaHypothyroidismPeripheral Vascular DiseaseWeight LossDysphagiaHypothyroidismPeripheral Vascular DiseaseWeight LossDysphagiaHypothyroidismPeripheral Vascular DiseaseWeight LossDysphagiaHypothyroidismPeripheral Vascular DiseaseWeight Loss DysphagiaHypothyroidismPeripheral Vascular DiseaseWeight LossEssential Hypertension BenignEssential Hypertension BenignEssential Hypertension BenignEssential Hypertension BenignEssential Hypertension BenignChronic Obstructive Pulmonary DiseaseChronic Obstructive Pulmonary DiseaseChronic Obstructive Pulmonary DiseaseChronic Obstructive Pulmonary DiseaseChronic Obstructive Pulmonary Disease [facility] ([facility]) Dysphagia Hypothyroidism Peripheral Vascular Disease Weight Loss Dysphagia Hypothyroidism Peripheral Vascular Disease Weight Loss Dysphagia Hypothyroidism Peripheral Vascular Disease Weight Loss Dysphagia Hypothyroidism Peripheral Vascular Disease Weight Loss Dysphagia Hypothyroidism Peripheral Vascular Disease Weight Loss Essential Hypertension Benign Essential Hypertension Benign Essential Hypertension Benign Essential Hypertension Benign Essential Hypertension Benign Chronic Obstructive Pulmonary Disease Chronic Obstructive Pulmonary Disease Chronic Obstructive Pulmonary Disease Chronic Obstructive Pulmonary Disease Chronic Obstructive Pulmonary Disease Outpatient Attender: ELAN ONEIL DPRolf PCConsultant: Dasha Rosario MD 09/05/2020 01:06:00 PM EDT - 09/05/2020 01:06:00 PM EDT [facility] Outpatient Attender: MARIE AMOS MDReferrer: Rl lazaro MD [id number] 08/27/2020 12:00:00 AM EDT - 08/27/2020 04:09:57 PM EDT Malignant neoplasm of lower lobe, right bronchus or lung [facility] Malignant neoplasm of lower lobe, right bronchus or lung Outpatient Referrer: MARIE AMOS MD 08/27/2020 12 :00:00 AM EDT Malignant neoplasm of lower lobe, right bronchus or lung [facility] Malignant neoplasm of lower lobe, right bronchus or lung Outpatient Attender: Renate Rosario MDConsultant: Renate grider MD 08/22/2020 12:53:00 PM EDT - 08/22/2020 01:54:00 PM EDT [facility] <td ID="encounterTypeDescriptionID4">ZULMA /DOPPLER</td><td>Renate Rosario MD</td><td>[facility],</td><td>08/14/2020</td><td>10:53AM</td><td>12:14PM</td><td></td>Outp atient Attender: Renate Rosario MD [facility], 10:53:00 AM EDT - 08/14/2020 12:14:00 PM EDT [facility]) <td ID="encounterTypeDescriptionID5">EXT ENDED VISIT</td><td>Renate Rosario MD</td><td>[facility],</td><td>08/12/2020</td><td>1:02PM</td><td>2:21PM</td><td><content ID="encounterDiagnosisID5-0">Peripheral Vascular Disease</content>, <content ID="encounterDiagnosisID5-1">Essential Hypertension Benign</content>, <content ID="encounterDiagnosisID5-2">Hypothyroidism Postprocedural</content>, <content ID="encounterDiagnosisID5-3">Persistent Insomnia</content>, <content ID="encounterDiagnosisID5-4">Abnormal Weight Loss</content>, <content ID="encounterDiagnosisID5-5">Chronic Obstructive Pulmonary Disease</content></td>Outpatient Attender: Renate Rosario MD [facility] 08/12/2020 01:02:00 PM EDT - 08/12/2020 02:21:00 PM ED T Abnormal Weight LossPersistent InsomniaHypothyroidism PostproceduralPeripheral Vascular DiseaseAbnormal Weight LossPersistent InsomniaHypothyroidism PostproceduralPeripheral Vascular DiseaseAbnormal Weight LossPersistent Insomnia Hypothyroidism PostproceduralPeripheral Vascular DiseaseAbnormal Weight LossPersistent InsomniaHypothyroidism PostproceduralPeripheral Vascular DiseaseAbnormal Weight LossPersistent InsomniaHypothyroidism Postprocedural Peripheral Vascular DiseaseAbnormal Weight LossPersistent InsomniaHypothyroidism PostproceduralPeripheral Vascular DiseaseEssential Hypertension BenignEssential Hypertension BenignEssential Hypertension BenignEssential Hypertension Benign Essential Hypertension BenignEssential Hypertension BenignChronic Obstructive Pulmonary DiseaseChronic Obstructive Pulmonary DiseaseChronic Obstructive Pulmonary DiseaseChronic Obstructive Pulmonary DiseaseChronic Obstructive Pulmonary DiseaseChronic Obstructive Pulmonary Disease [facility] ([facility]) Abnormal Weight Loss Persistent Insomnia Hypothyroidism Postprocedural Peripheral Vascular Disease Abnormal Weight Loss Persistent Insomnia Hypothyroidism Postprocedural Peripheral Vascular Disease Abnormal Weight Loss Persistent Insomnia Hypothyroidism Postprocedural Peripheral Vascular Disease Abnormal Weight Loss Persistent Insomnia Hypothyroidism Postprocedural Peripheral Vascular Disease Abnormal Weight Loss Persistent Insomnia Hypothyroidism Postprocedural Peripheral Vascular Disease Abnormal Weight Loss Persistent Insomnia Hypothyroidism Postprocedural Peripheral Vascular Disease Essential Hypertension Benign Essential Hypertension Benign Essential Hypertension Benign Essential Hypertension Benign Essential Hypertension Benign Essential Hypertension Benign Chronic Obstructive Pulmonary Disease Chronic Obstructive Pulmonary Disease Chronic Obstructive Pulmonary Disease Chronic Obstructive Pulmonary Disease Chronic Obstructive Pulmonary Disease Chronic Obstructive Pulmonary Disease Outpatient Attender: ELAN ONEIL DPM PCConsultant: Dasha Rosario MD 06/27/2020 12:57:00 PM EST - 06/27/2020 12:57:00 PM [facility] Outpatient Attender: Renate Rosario MDConsultant: Renate grider MD 06/14/2020 07:04:00 AM [facility] - 06/14/2020 08:04:00 AM [facility] Outpatient Attender: Renate Rosario MDConsultant: Renate grider MD 05/22/2020 07:09:56 AM [facility] - 05/23/2020 08:08:00 AM [facility] Patient discharged. Outpatient<td ID="encounterTypeDescripti onID7">EXTENDED VISIT</td><td>Renate Rosario MD</td><td>[facility]</td><td>05/13/2020</td><td>1:06PM</td><td>1:52PM</td><td><content ID="encounterDiagnosisID7-0">Essential Hypertension Benign</content>, <content ID="encounterDiagnosisID7-1">Hypothyroidism</content>, <content ID="encounterDiagnosisID7-2">Lung Cancer</content>, <content ID="encounterDiagnosisID7-3">Hyperlipidemia</content>, <content ID="encounterDiagnosisID7-4">Hypoxia</content></td> Attender: Renate Rosario MD [facility] 05/13/2020 01:06:00 PM EST - 05/13/2020 01:52:00 PM EST HypoxiaHyperlipidemiaHypothyroidismHypoxiaHyperlipidemiaHypothyroidismHypoxiaHyp erlipidemiaHypothyroidismHypoxiaHyperlipidemiaHypothyroidismHypoxiaHyperlipidemi aHypothyroidismHypoxiaHyperlipidemiaHypothyroidismLung CancerEssential Hypertension BenignLung CancerEssential Hypertension BenignLung CancerEssential Hypertension BenignLung CancerEssential Hypertension BenignLung CancerEssential Hypertension BenignLung CancerEssential Hypertension Benign [facility] Hypoxia Hyperlipidemia Hypothyroidism Hypoxia Hyperlipidemia Hypothyroidism Hypoxia Hyperlipidemia Hypothyroidism Hypoxia Hyperlipidemia Hypothyroidism Hypoxia Hyperlipidemia Hypothyroidism Hypoxia Hyperlipidemia Hypothyroidism Lung Cancer Essential Hypertension Benign Lung Cancer Essential Hypertension Benign Lung Cancer Essential Hypertension Benign Lung Cancer Essential Hypertension Benign Lung Cancer Essential Hypertension Benign Lung Cancer Essential Hypertension Benign Outpatient<td ID="encounterTypeDescripti onID6">[Patient Encounter]</td><td>Renate Rosario MD</td><td>[facility] (AMBULATORY SURGICAL)</td><td>05/23/2020</td><td>05/13/2020 10:25AM</td><td>05/13/2020 11:59PM</td><td></td> Attender: Renate Rosario MD [facility] (AMBULATORY SURGICAL) 05/13/2020 10:25:00 AM [facility] - 05/13/2020 11:59:00 PM [facility] ([facility]) Outpatient Attender: ELAN ONEIL DPM PCConsultant: Dasha Rosario MD 04/18/2020 01:04:00 PM [facility] - 04/18/2020 01:04:00 PM [facility] <td ID="encounterTypeDescriptionID8">EXT ENDED VISIT</td><td>Renate Rosario MD</td><td>[facility],</td><td>04/02/2020</td><td>10:52AM</td><td>11:51AM</td><td><content ID="encounterDiagnosisID8-0">Essential Hypertension Benign</content>, <content ID="encounterDiagnosisID8-1">Hypothyroidism</content></td>Outpatient Attender: Renate Rosario MD [facility], 04/02/2020 10:52:00 AM EST - 04/02/2020 11:51:00 AM EST HypothyroidismHypothyroidismHypothyroidismHypothyroidismHypothyroidismHypothyroi dismHypothyroidismEssential Hypertension BenignEssential Hypertension BenignEssential Hypertension BenignEssential Hypertension BenignEssential Hypertension BenignEssential Hypertension BenignEssential Hypertension Benign [facility] ([facility]) Hypothyroidism Hypothyroidism Hypothyroidism Hypothyroidism Hypothyroidism Hypothyroidism Hypothyroidism Essential Hypertension Benign Essential Hypertension Benign Essential Hypertension Benign Essential Hypertension Benign Essential Hypertension Benign Essential Hypertension Benign Essential Hypertension Benign Outpatient Attender: Renate Rosario MDConsultant: Renate grider MD 03/22/2020 12:09:00 PM EST - 03/22/2020 01:09:00 PM [facility] <td ID="encounterTypeDescriptionID9">CLI NICAL USE ONLY</td><td>Renate Rosario MD</td><td>[facility]</td><td>03/27/2020</td><td>03/14/2020 1:39PM</td><td>03/14/2020 11:59PM</td><td></td>Outpatient Attender: Renate Rosario MD [facility], 03/14/2020 01:39:00 PM EST - 03/14/2020 11:59:00 PM [facility] ([facility]) Outpatient<td ID="encounterTypeDescripti onID10">STANDARD OV</td><td>Renate Rosario MD</td><td>[facility]</td><td>03/14/2020</td><td>1:00PM</td><td>1:52PM</td><td><content ID="iaxfkhvcrRdwbwfxueKF37-3">Menopause</content>, <content ID="irpwakcvvYnjldqmqlWX89-0">Essential Hypertension Benign</content>, <content ID="wuhbppshyChkmaizhfEW35-6">Hyperlipidemia</content></td> Attender: Renate Rosario MD [facility], 03/14/2020 01:00:00 PM EST - 03/14/2020 01:52:00 PM EST HyperlipidemiaHyperlipidemiaHyperlipidemiaHyperlipidemiaHyperlipidemiaHyperlipid emiaHyperlipidemiaHyperlipidemiaEssential Hypertension BenignMenopauseEssential Hypertension BenignMenopauseEssential Hypertension BenignMenopauseEssential Hypertension BenignMenopauseEssential Hypertension BenignMenopauseEssential Hypertension BenignMenopauseEssential Hypertension BenignMenopauseEssential Hypertension BenignMenopause [facility] ([facility]) Hyperlipidemia Hyperlipidemia Hyperlipidemia Hyperlipidemia Hyperlipidemia Hyperlipidemia Hyperlipidemia Hyperlipidemia Essential Hypertension Benign Menopause Essential Hypertension Benign Menopause Essential Hypertension Benign Menopause Essential Hypertension Benign Menopause Essential Hypertension Benign Menopause Essential Hypertension Benign Menopause Essential Hypertension Benign Menopause Essential Hypertension Benign Menopause <td ID="gg[id number]">[facility] OV</td><td>Renate Rosario MD</td><td>[facility],</td><td>02/15/2020</td><td>12:53PM</td><td>1:51PM</td><td><content ID="gpvintemvSallflutbEL16-7">Chronic Obstructive Pulmonary Disease</content>, <content ID="kpssqipnmDettkvqvvWG67-6">Hypothyroidism</content>, <content ID="lbjyonduhUbfnnozrnZW06-1">Lung Cancer</content>, <content ID="casdpydceTttysgjtyQP93-2">Menopause</content></td>Outpatient Attender: Renate Rosario MD [facility], 02/15/2020 12:53:00 PM EDT - 02/15/2020 01:51:00 PM EDT HypothyroidismHypothyroidismHypothyroidismHypothyroidismHypothyroidismHypothyroi dismHypothyroidismHypothyroidismHypothyroidismHypothyroidismMenopauseLung CancerMenopauseLung CancerMenopauseLung CancerMenopauseLung CancerMenopauseLung CancerMenopauseLung CancerMenopauseLung CancerMenopauseLung CancerMenopauseLung CancerMenopauseLung CancerChronic Obstructive Pulmonary DiseaseChronic Obstructive Pulmonary DiseaseChronic Obstructive Pulmonary DiseaseChronic Obstructive Pulmonary DiseaseChronic Obstructive Pulmonary DiseaseChronic Obstructive Pulmonary DiseaseChronic Obstructive Pulmonary DiseaseChronic Obstructive Pulmonary DiseaseChronic Obstructive Pulmonary DiseaseChronic Obstructive Pulmonary Disease [facility]) Hypothyroidism Hypothyroidism Hypothyroidism Hypothyroidism Hypothyroidism Hypothyroidism Hypothyroidism Hypothyroidism Hypothyroidism Hypothyroidism Menopause Lung Cancer Menopause Lung Cancer Menopause Lung Cancer Menopause Lung Cancer Menopause Lung Cancer Menopause Lung Cancer Menopause Lung Cancer Menopause Lung Cancer Menopause Lung Cancer Menopause Lung Cancer Chronic Obstructive Pulmonary Disease Chronic Obstructive Pulmonary Disease Chronic Obstructive Pulmonary Disease Chronic Obstructive Pulmonary Disease Chronic Obstructive Pulmonary Disease Chronic Obstructive Pulmonary Disease Chronic Obstructive Pulmonary Disease Chronic Obstructive Pulmonary Disease Chronic Obstructive Pulmonary Disease Chronic Obstructive Pulmonary Disease Outpatient Attender: ELAN ONEIL DPRolf PCConsultant: Dasha Rosario MD 02/08/2020 11:16:00 AM EDT - 02/08/2020 11:16:00 AM EDT [facility] Outpatient Attender: Renate Rosario MDConsultant: Renate grider MD 01/16/2020 07:15:00 AM EDT - 01/16/2020 08:15:00 AM EDT [facility] Immunizations Vaccine Date Status Description Data Source(s) COVID-19 VACCINE Pfizer 02/22/2021 12:00:00 AM EDT completed [facility] Vaccine Series Complete: YESThis Data wa s Submitted to [facility] Via [employer]. COVID-19 Pfizer 07/24/2020 01:50:00 PM EDT completed <td ID="Ivslqnudvfxpo-Oehlbomqajc-HS7">COVID-19 Pfizer</td><td ID="ImmunizationDose- 1">2</td><td>07/24/2020</td><td ID="Rnbmzsxszufwf-NylyyPare-PB6"></td><td></td> <td ID="Ylfaymdfcgqmz-Hwymwm-AZ3">Complete (Reported)</td><td>Patient</td><td ID="Osziypojnbfay-Bevhq-Svhl-Comment-ID1"></td> [facility]) COVID-19 VACCINE Pfizer 07/24/2020 12:00:00 AM EDT completed [facility] Vaccine Series Complete: YESThis Data wa s Submitted to [facility] Via [employer]. COVID-19 Pfizer 07/03/2020 01:50:00 PM EST completed <td ID="Tofacatrljvts-Ohkyrsvcnei-UE1">COVID-19 Pfizer</td><td ID="ImmunizationDose- 0">1</td><td>07/03/2020</td><td ID="Dwezlyjuojljc-FpcmkXuui-GW5"></td><td></td> <td ID="Mwnaixediaqnu-Hjdlty-DU0">Complete (Reported)</td><td>Patient</td><td ID="Uzbvwoyobweeo-Hraug-Ejjl-Comment-ID0"></td> [facility]ACC[facility] Pfizer 07/03/2020 12:00:00 AM EST completed [facility] Vaccine Series Complete: NOThis Data was Submitted to [facility] Via [employer]. This CVX code allows reporting of a vacc ination when formulation is unknown (for example, when recording a Influenza vaccination when noted on a vaccination card) 03/19/2020 11:34:00 AM EST completed <td ID="Ebmybvlttjitp-Surmaqzkxfo-NG75">Influenza,NOS</td><td ID="ImmunizationDose- 14">12</td><td>03/19/2020</td><td ID="Icnnrvxtwjkjz-ZooxiGfkm-WI20"></td><td></td><td ID="Pflbznrqnzuwo-Qykxwc-JP27">Complete (Reported)</td><td>Patient</td><td ID="Cfscxxuuedphj-Yohej-Etzh-Comment-ID14"></td> [facility]) Medications Medication Brand Name Start Date Product Form Dose Route Admi nistrative Instructions Pharmacy Instructions Status Indications Reaction Description Data Source(s) Trelegy Ellipta Trelegy Ellipta 11/29/2020 12:00:00 AM EDT ORAL active [facility] ([facility]) Levothyroxine Sodium 0.075 MG Oral Tablet [Levoxyl] Le voxyl 75 MCG Oral Tablet Levoxyl 75 MCG Oral Tablet 11/21/2020 12:00:00 AM EDT active levothyroxine sodium 0.075 MG Oral Tablet [Levoxyl] [facility] Lisinopril 20 MG Oral Tablet Lisinopril 20 MG Oral Tablet 12:00:00 AM EDT 1 active lisinopril 20 MG Oral Tablet [facility] ([facility]) Fluticasone Propionate 50 MCG/ACT Nasal Suspension Flu ticasone Propionate 50 MCG/ACT Nasal Suspension 11/21/2020 12:00:00 AM EDT 2 active fluticasone propionate 0.05 MG/ACTUAT Metered Dose Nasal [place] [facility] ([facility]) Ergocalciferol [id number] UNT Oral Capsule [D risdol] Drisdol 1.25 MG (69582 UT) Oral Capsule Drisdol 1.25 MG (12989 UT) Oral Capsule 11/21/2020 12:00:00 AM EDT active ergocalciferol 1.25 MG Oral Capsule [Drisdol] [facility]) Levothyroxine Sodium 0.05 MG Oral Tablet Levothyroxine Sodium 50 MCG Oral Tablet Levothyroxine Sodium 50 MCG Oral Tablet 11/21/2020 12:00:00 AM EDT active levothyroxine sodium 0.05 MG Ora l Tablet [facility]) Trelegy Ellipta 100-62.5-25 MCG/INH Inhalation Aerosol Powder Breath Activated Trelegy Ellipta 100-62.5-25 MCG/INH Inhalation Aerosol Powder Breath Activated 11/21/2020 12:00:00 AM EDT active 30 ACTUAT fluticasone furoate 0.1 MG/ACTUAT / umeclidinium 0.0625 MG/ACTUAT / vilanterol 0.025 MG/ACTUAT Dry Powder Inhaler [Trelegy] [facility] ([facility]) Trelegy Ellipta 100-62.5-25 MCG/INH Inhalation Aerosol Powder Breath Activated Trelegy Ellipta 100-62.5-25 MCG/INH Inhalation Aerosol Powder Breath Activated 10/09/2020 12:00:00 AM EDT aborted 30 ACTUAT fluticasone furoate 0.1 MG/ACTUAT / umeclidinium 0.0625 MG/ACTUAT / vilanterol 0.025 MG/ACTUAT Dry Powder Inhaler [Trelegy] [facility] ([facility]) Fluticasone Propionate 50 MCG/ACT Nasal Suspension Flu ticasone Propionate 50 MCG/ACT Nasal Suspension 10/09/2020 12:00:00 AM EDT 2 aborted fluticasone propionate 0.05 MG/ACTUAT Metered Dose Nasal [place] [facility]) Ergocalciferol [id number] UNT Oral Capsule [D risdol] Drisdol 1.25 MG (90873 UT) Oral Capsule Drisdol 1.25 MG (59881 UT) Oral Capsule 10/09/2020 12:00:00 AM EDT aborted ergocalciferol 1.25 MG Oral Capsule [Drisdol] [facility]) Lisinopril 20 MG Oral Tablet Lisinopril 20 MG Oral Tablet 12:00:00 AM EDT 1 aborted lisinopril 20 MG Oral Tablet [facility]) Lisinopril 20 MG Oral Tablet Lisinopril 20 MG Oral Tablet 12:00:00 AM EDT 1 aborted lisinopril 20 MG Oral Tablet [facility]) Levothyroxine Sodium 0.05 MG Oral Tablet Levothyroxine Sodium 50 MCG Oral Tablet Levothyroxine Sodium 50 MCG Oral Tablet 09/11/2020 12:00:00 AM EDT aborted levothyroxine sodium 0.05 MG Ora l Tablet [facility]) Levothyroxine Sodium 0.075 MG Oral Tablet [Levoxyl] Le voxyl 75 MCG Oral Tablet Levoxyl 75 MCG Oral Tablet 09/11/2020 12:00:00 AM EDT aborted levothyroxine sodium 0.075 MG Oral Tablet [Levoxyl] [facility] [facility] Ergocalciferol 70671 UNT Oral Capsule [D risdol] Drisdol 1.25 MG (63547 UT) Oral Capsule Drisdol 1.25 MG (27148 UT) Oral Capsule 08/12/2020 12:00:00 AM EDT aborted ergocalciferol 1.25 MG Oral Capsule [Drisdol] [facility] ([facility]) Fluticasone Propionate 50 MCG/ACT Nasal Suspension Flu ticasone Propionate 50 MCG/ACT Nasal Suspension 08/12/2020 12:00:00 AM EDT 2 aborted fluticasone propionate 0.05 MG/ACTUAT Metered Dose Nasal [place] KAREN ([facility]) Trelegy Ellipta 100-62.5-25 MCG/INH Inhalation Aerosol Powder Breath Activated Trelegy Ellipta 100-62.5-25 MCG/INH Inhalation Aerosol Powder Breath Activated 07/30/2020 12:00:00 AM EDT aborted 30 ACTUAT fluticasone furoate 0.1 MG/ACTUAT / umeclidinium 0.0625 MG/ACTUAT / vilanterol 0.025 MG/ACTUAT Dry Powder Inhaler [Trelegy] KAREN ([facility]) Levothyroxine Sodium 0.05 MG Oral Tablet Levothyroxine Sodium 50 MCG Oral Tablet Levothyroxine Sodium 50 MCG Oral Tablet 07/16/2020 12:00:00 AM EDT aborted levothyroxine sodium 0.05 MG Ora l Tablet [facility] ([facility]) Lisinopril 20 MG Oral Tablet Lisinopril 20 MG Oral Tablet 12:00:00 AM EST aborted lisinopril 20 MG Oral Tablet KAREN ([facility]) Pentoxifylline 400 MG Extended Release O ral Tablet Pentoxifylline ER 400 MG Oral Tablet Extended Release Pentoxifylline ER 400 MG Oral Tablet Extended Release 07/02/2020 12:00:00 AM EST aborted pentoxifylline 400 MG Extended Release Oral Tablet [facility] ([facility]) Pentoxifylline 400 MG Extended Release O ral Tablet Pentoxifylline ER 400 MG Oral Tablet Extended Release Pentoxifylline ER 400 MG Oral Tablet Extended Release 07/02/2020 12:00:00 AM EST active pentoxifylline 400 MG Extended Release Oral Tablet [facility] ([facility]) Pentoxifylline 400 MG Extended Release Oral Tablet Pentoxify lline ER 06/27/2020 12:00:00 AM EST ORAL active M EDENT ([facility]) Pentoxifylline 400 MG Extended Release Oral Tablet Pentoxify lline ER 06/27/2020 12:00:00 AM EST ORAL active M EDENT ([facility]) 1 ML denosumab 60 MG/ML Prefilled Syring e [Prolia] Prolia 60 MG/ML Subcutaneous Solution Prefilled Syringe Prolia 60 MG/ML Subcutaneous Solution Pr efilled Syringe 05/17/2020 12:00:00 AM EST active 1 ML denosumab 60 MG/ML Prefilled Syringe [Prolia] [facility]) Fluticasone Propionate 50 MCG/ACT Nasal Suspension Flu ticasone Propionate 50 MCG/ACT Nasal Suspension 05/13/2020 12:00:00 AM EST 2 aborted fluticasone propionate 0.05 MG/ACTUAT Metered Dose Nasal [place] [facility] ([facility]) Ergocalciferol 28390 UNT Oral Capsule [D risdol] Drisdol 1.25 MG (80351 UT) Oral Capsule Drisdol 1.25 MG (08008 UT) Oral Capsule 05/01/2020 12:00:00 AM EST aborted ergocalciferol 1.25 MG Oral Capsule [Drisdol] [facility]) Trelegy Ellipta 100-62.5-25 MCG/INH Inhalation Aerosol Powder Breath Activated Trelegy Ellipta 100-62.5-25 MCG/INH Inhalation Aerosol Powder Breath Activated 04/15/2020 12:00:00 AM EST aborted 30 ACTUAT fluticasone furoate 0.1 MG/ACTUAT / umeclidinium 0.0625 MG/ACTUAT / vilanterol 0.025 MG/ACTUAT Dry Powder Inhaler [Trelegy] [facility]) Trelegy Ellipta 100-62.5-25 MCG/INH Inhalation Aerosol Powder Breath Activated Trelegy Ellipta 100-62.5-25 MCG/INH Inhalation Aerosol Powder Breath Activated 04/15/2020 12:00:00 AM EST aborted 30 ACTUAT fluticasone furoate 0.1 MG/ACTUAT / umeclidinium 0.0625 MG/ACTUAT / vilanterol 0.025 MG/ACTUAT Dry Powder Inhaler [Trelegy] [facility]) 100-62.5-25 mcg 04/15/2020 12:00:00 AM EST blister with my ce 60 INHALE ONE PUFF BY MOUTH EVERY MORNING INHALE ONE PUFF BY MOUTH EVERY MORNING SOLD: 04/15/2020 [facility] Levothyroxine Sodium 0.05 MG Oral Tablet [Levoxyl] Lev oxyl 50 MCG Oral Tablet Levoxyl 50 MCG Oral Tablet 04/02/2020 12:00:00 AM EST aborted levothyroxine sodium 0.05 MG Oral Tablet [Levoxyl] [facility]) Levothyroxine Sodium 0.075 MG Oral Tablet [Levoxyl] Le voxyl 75 MCG Oral Tablet Levoxyl 75 MCG Oral Tablet 04/02/2020 12:00:00 AM EST aborted levothyroxine sodium 0.075 MG Oral Tablet [Levoxyl] [facility] ([facility]) Lisinopril 20 MG Oral Tablet [Zestril] Zestril 20 MG O ral Tablet Zestril 20 MG Oral Tablet 04/02/2020 12:00:00 AM EST aborte d lisinopril 20 MG Oral Tablet [Zestril] [facility]) Lisinopril 10 MG Oral Tablet [Zestril] Zestril 10 MG O ral Tablet Zestril 10 MG Oral Tablet 03/14/2020 12:00:00 AM EST aborte d lisinopril 10 MG Oral Tablet [Zestril] [facility] ([facility]) Lisinopril 5 MG Oral Tablet [Zestril] Zestril 5 MG Ora l Tablet Zestril 5 MG Oral Tablet 02/15/2020 12:00:00 AM EDT 1 aborted lisinopril 5 MG Oral Tablet [Zestril] [facility]) Fluticasone Propionate 50 MCG/ACT Nasal Suspension Flu ticasone Propionate 50 MCG/ACT Nasal Suspension 02/15/2020 12:00:00 AM EDT 2 aborted fluticasone propionate 0.05 MG/ACTUAT Metered Dose Nasal [place] [facility] ([facility]) Lisinopril 10 MG Oral Tablet [Zestril] Zestril 10 MG O ral Tablet Zestril 10 MG Oral Tablet 02/15/2020 12:00:00 AM EDT 1 aborte d lisinopril 10 MG Oral Tablet [Zestril] [facility] ([facility]) Levothyroxine Sodium 0.075 MG Oral Tablet [Levoxyl] Le voxyl 75 MCG Oral Tablet Levoxyl 75 MCG Oral Tablet 02/07/2020 12:00:00 AM EDT aborted levothyroxine sodium 0.075 MG Oral Tablet [Levoxyl] [facility] ([facility]) Ergocalciferol 56292 UNT Oral Capsule [D risdol] Drisdol 1.25 MG (96042 UT) Oral Capsule Drisdol 1.25 MG (79275 UT) Oral Capsule 01/29/2020 12:00:00 AM EDT aborted ergocalciferol 1.25 MG Oral Capsule [Drisdol] [facility] ([facility]) Trelegy Ellipta 100-62.5-25 MCG/INH Inhalation Aerosol Powder Breath Activated Trelegy Ellipta 100-62.5-25 MCG/INH Inhalation Aerosol Powder Breath Activated 01/25/2020 12:00:00 AM EDT aborted 30 ACTUAT fluticasone furoate 0.1 MG/ACTUAT / umeclidinium 0.0625 MG/ACTUAT / vilanterol 0.025 MG/ACTUAT Dry Powder Inhaler [Trelegy] [facility] ([facility]) 1 ML denosumab 60 MG/ML Prefilled Syring e [Prolia] Prolia 60 MG/ML Subcutaneous Solution Prefilled Syringe Prolia 60 MG/ML Subcutaneous Solution Pr efilled Syringe 11/16/2019 12:00:00 AM EDT aborted 1 ML denosumab 60 MG/ML Prefilled Syringe [Prolia] [facility] ([facility]) Lisinopril 5 MG Oral Tablet [Zestril] Zestril 5 MG Ora l Tablet Zestril 5 MG Oral Tablet 11/15/2019 12:00:00 AM EDT 1 aborted lisinopril 5 MG Oral Tablet [Zestril] [facility] ([facility]) Levothyroxine Sodium 0.05 MG Oral Tablet [Levoxyl] Lev oxyl 50 MCG Oral Tablet Levoxyl 50 MCG Oral Tablet 11/15/2019 12:00:00 AM EDT aborted levothyroxine sodium 0.05 MG Oral Tablet [Levoxyl] [facility] ([facility]) Fluticasone Propionate 50 MCG/ACT Nasal Suspension Flu ticasone Propionate 50 MCG/ACT Nasal Suspension 11/15/2019 12:00:00 AM EDT 2 aborted fluticasone propionate 0.05 MG/ACTUAT Metered Dose Nasal [place] KAREN ([facility]) 30 ACTUAT umeclidinium 0.0625 MG/ACTUAT / vilanterol 0.025 MG/ACTUAT Dry Powder Inhaler [Anoro] Anoro Ellipta 62.5-25 MCG/INH Inhalation Aerosol Powder Breath Activated Anoro Ellipta 62.5-25 MCG/INH Inhalation Aerosol Powder Breath Activated 11/15/2019 12:00:00 AM EDT aborted 30 ACTUAT umeclidinium 0.0625 MG/ACTUAT / vilanterol 0.025 MG/ACTUAT Dry Powder Inhaler [Anoro] KAREN ([facility]) Ergocalciferol 59323 UNT Oral Capsule [D risdol] Drisdol 1.25 MG (25652 UT) Oral Capsule Drisdol 1.25 MG (11955 UT) Oral Capsule 11/15/2019 12:00:00 AM EDT aborted ergocalciferol 1.25 MG Oral Capsule [Drisdol] KAREN ([facility]) Insurance Providers Payer name Policy type / Coverage type Policy ID Covered alliance party ID Covered alliance party's relationship to river Policy [place] Plan Information MEDICARE A [id number] Self [id number] MEDICARE A [id number] Self [id number] A Medicare Part B of [place] Medicare [employer] [facility] [employer] [facility] ([facility]) or Other Federal Agency 0 [id number] Self 0 Medicare Part B of [place] Medicare [employer] Public Health Service (PHS) or Other Federal Agency 0 [id number] Self 0 Medicare Part [place] of [place] Medicare [employer] (PHS) or Other Federal Agency 0 [id number] Self 0 Medicare Part B of [place] Medicare [employer] (PHS) or Other Federal Agency 0 [id number] Self 0 Medicare Part [place] of [place] Medicare [employer] (PHS) or Other Federal Agency 0 [id number] Self 0 Medicare Part B of [place] Medicare [employer] (PHS) or Other Federal Agency 0 [id number] Self 0 Medicare Part B of [place] Medicare [employer] Service (PHS) or Other Federal Agency 0 [id number] Self 0 Medicare Part B of [facility] Medicare Seconda ry Public Health Service (PHS) or Other Federal Agency 0 [id number] Self 0 Medicare Part B of [facility] Medicare Seconda ry Public Health Service (PHS) or Other Federal Agency 0 [id number] Self 0 Medicare Part B of [facility] Medicare Seconda ry Public Health Service (PHS) or Other Federal Agency 0 [id number] Self 0 Medicare Part B of [facility] Medicare Seconda ry Public Health Service (PHS) or Other Federal Agency 0 [id number] Self 0 Medicare Part B of [facility] Medicare Seconda [employer] Public Health Service (PHS) or Other Federal Agency 0 [id number] Self 0 Medicare Part B of [facility] Medicare Seconda ry Public Health Service (PHS) or Other Federal Agency 0 [id number] Self 0 Medicare Part B of [place] Medicare [employer] Service (PHS) or Other Federal Agency 0 [id number] Self 0 Medicare Part B of [facility] Medicare Seconda ry Public Health Service (PHS) or Other Federal Agency 0 [id number] Self 0 Medicare Part B of [facility] Medicare Seconda ry Public Health Service (PHS) or Other Federal Agency 0 [id number] Self 0 Medicare Part B of [facility] Medicare Seconda ry Public Health Service (PHS) or Other Federal Agency 0 [id number] Self 0 Medicare Part B of [facility] Medicare Seconda ry Public Health Service (PHS) or Other Federal Agency 0 [id number] Self 0 Medicare Part B of [facility] Medicare Seconda ry Public Health Service (PHS) or Other Federal Agency 0 [id number] Self 0 Medicare Part B of [facility] Medicare Seconda ry Public Health Service (PHS) or Other Federal Agency 0 [id number] Self 0 Medicare Part B of [facility] Medicare Seconda ry Public Health Service (PHS) or Other Federal Agency 0 [id number] Self 0 Medicare Part B of [facility] Medicare Seconda ry Public Health Service (PHS) or Other Federal Agency 0 [id number] Self 0 Medicare Part B of [facility] Medicare Seconda ry Public Health Service (PHS) or Other Federal Agency 0 [id number] Self 0 Medicare Part B of [facility] Medicare Seconda [employer] Public [employer] Service (PHS) or Other Federal Agency 0 [id number] Self 0 Medicare Part B of [facility] Medicare Seconda [employer] Public Health Service (PHS) or Other Federal Agency 0 [id number] Self 0 Medicare Part B of [facility] Medicare Seconda ry Public Health Service (PHS) or Other Federal Agency 0 [id number] Self 0 Medicare Part B of [facility] Medicare Seconda ry Public Health Service (PHS) or Other Federal Agency 0 [id number] Self 0 Medicare Part B of [facility] Medicare Seconda ry Public Health Service (PHS) or Other Federal Agency 0 [id number] Self 0 Medicare Part B of [facility] Medicare Seconda ry Public Health Service (PHS) or Other Federal Agency 0 [id number] Self 0 Medicare Part B of [facility] Medicare Seconda [employer] Public Health Service (PHS) or Other Federal Agency 0 [id number] Self 0 Medicare Part B of [facility] Medicare Seconda ry Public Health Service (PHS) or Other Federal Agency 0 [id number] Self 0 Medicare Part B of [facility] Medicare Seconda ry Public Health Service (PHS) or Other Federal Agency 0 [id number] Self 0 Medicare Part B of [facility] Medicare Seconda ry Public Health Service (PHS) or Other Federal Agency 0 [id number] Self 0 Medicare Part B of [facility] Medicare Seconda ry Public Health Service (PHS) or Other Federal Agency 0 [id number] Self 0 Medicare Part B of [facility] Medicare Seconda ry Public Health Service (PHS) or Other Federal Agency 0 [id number] Self 0 Medicare Part B of [facility] Medicare Seconda ry Public Health Service (PHS) or Other Federal Agency 0 [id number] Self 0 Medicare Part B of [facility] Medicare Seconda ry Public Health Service (PHS) or Other Federal Agency 0 [id number] Self 0 Medicare Part B of [facility] Medicare Seconda ry Public Health Service (PHS) or Other Federal Agency 0 [id number] Self 0 Medicare Part B of [facility] Medicare Seconda ry Public Health Service (PHS) or Other Federal Agency [id number] Self [address] [facility] [id number] [employer] AT [facility] Maintenance Organization (O) [id number] Self [id number] [employer] At [facility] Maintenance [facility] (O) [id number] Self [facility] U [id number] Se lf [id number] [facility] AT [facility]/P [id number] 01 [id number] MEDICARE C [id number] S [id number] A MEDICARE [id number] SP [id number] A [facility] AT [facility] [id number] 18 [id number] MEDICARE PART A -CLINIC [id number] 18 [id number] MEDICARE PART A [facility] [id number] 18 [id number] [facility] [id number] S [id number] Medicare Part A [place] Medicare Primary [id number] Self 0 [id number] [facility] Commercial [id number] Self [id number] MEDICARE - [place] [id number] S [id number] [facility] MEDICARE DIVISION [id number] S [id number] [facility] [id number] 18 [id number] MEDICARE PART A -O/P [id number] 18 [id number] [facility] AT [facility] [id number] 18 [id number] MEDICARE PART A [facility] [id number] 18 [id number] MEDICARE [id number] SP [id number] A [facility] [id number] SP [id number] MEDICARE -O/P [id number] 18 [id number] [place] Medicare Primary [id number] Self [facility] O [id number] S [id number] [facility] U Self MEDICARE PART A -O/P [id number] 18 [id number] Problems, Conditions, and Diagnoses Code Display Name Description Problem Type Effective Dates Data Source(s) follow up follow up Diagnosis 02/04/2021 11:03:38 AM ED [facility] R91.1 Solitary pulmonary nodule Solitary pulmonary nodule Di agnosis 01/29/2021 01:44:35 PM T [facility] E039 Hypothyroidism, unspecified Hypothyroidism, unspecifie d Diagnosis 12/23/2020 07:30:00 AM EDT [facility] [id number] Personal history of other malignant neop lasm of bronchus and lung Personal history of other malignant neoplasm of bronchus and lung Diagnosis 12/23/2020 07:30:00 AM T [facility] J449 Chronic obstructive pulmonary disease, u nspecified Chronic obstructive pulmonary disease, unspecified Diagnosis 12/23/2020 07:30:00 AM EDT [facility] M810 Age-related osteoporosis without current pathological fracture Age-related osteoporosis without current pathological fracture Diagnosis 07:30:00 AM T [facility] E559 Vitamin D deficiency, unspecified Vitamin D defi ciency, unspecified Diagnosis 11/14/2020 11:59:00 AM [facility] E890 Postprocedural hypothyroidism Postprocedural hypothyro idism Diagnosis 11/14/2020 11:59:00 AM T [facility] E038 Other specified hypothyroidism Other specified hypothy roidism Diagnosis 11/14/2020 11:59:00 AM T [facility] R634 Abnormal weight loss Abnormal weight loss Diagnosis 11/14/2020 11:59:00 AM T [facility] I73.9 Peripheral vascular disease, unspecified PERIPHERAL VASCULAR DISEASE, UNSPECIFIED Diagnosis 09/24/2020 11:45:00 AM EDT [facility] 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) Diagnosis 08/22/2020 12:53:00 PM EDT [facility] I10 Essential (primary) hypertension Essential (primary) h ypertension Diagnosis 08/22/2020 12:53:00 PM EDT [facility] E782 Mixed hyperlipidemia Mixed hyperlipidemia Diagnosis 06/14/2020 07:04:00 AM EST [facility] M2041 Other hammer toe(s) (acquired), right fo ot Other hammer toe(s) (acquired), right foot Diagnosis 02/08/2020 11:16:00 AM EDT [facility] M2010 Hallux valgus (acquired), unspecified fo ot Hallux valgus (acquired), unspecified foot Diagnosis 02/08/2020 11:16:00 AM EDT [facility] A10929 Pain in left foot Pain in left foot Diagnosis 02/08/2020 11:16:00 AM EDT [facility] M54668 Pain in right foot Pain in right foot Diagnosis 12/2019 11:16:00 AM EDT [facility] B353 Tinea pedis Tinea pedis Diagnosis 02/08/2020 11:16:00 AM EDT [facility] B351 Tinea unguium Tinea unguium Diagnosis 02/08/2020 11:16:00 AM EDT [facility] E538 Deficiency of other specified B group vi tamins Deficiency of other specified B group vitamins Diagnosis 01/16/2020 07:15:00 AM EDT [facility] I70.203 Atherosclerosis of arteries of the extre mities Atherosclerosis of arteries of the extremities Problem 11/14/2020 12:00:00 AM EDT CAM Benavides ([facility]) Surgeries/Procedures Procedure Description Date Indications Data Source(s) Spirometry 11/29/2020 12:00:00 AM EDT Rolf TRAVIS ([facility], ) OFFICE OUTPATIENT VISIT 25 MINUTES 11/29/2020 12:00:00 AM EDT JESS ([facility], ) ELECTROCARDIOGRAM, COMPLETE (EKG) ELECTROCARDIOGRAM, COMPLET E (EKG) 11/21/2020 12:00:00 AM EDT KAREN ([facility]) FECAL BLOOD ASSAY TEST (waived laboratory) FECAL BLOOD ASSAY TEST (waived laboratory) 11/21/2020 12:00:00 AM EDT KAREN ([facility]) Annual wellness visit; includes a person alized prevention plan of service (pps), initial visit MEDICARE "INITIAL" WELLNESS VISIT (AWV) 11/21/2020 12: 00:00 AM EDT WESCO ([facility]) Colorectal cancer screening; fecal occul t blood test, immunoassay, 1-3 simultaneous FECAL BLOOD ASSAY TEST(MEDICARE) 11/21/2020 12:00:00 AM EDT [facility] ([facility]) ELECTROCARDIOGRAM, COMPLETE (EKG) ELECTROCARDIOGRAM, COMPLET E (EKG) 11/21/2020 12:00:00 AM EDT [facility]CO ([facility]) Debridement Nails Any Method 6 Or More 11/14/2020 12:0 0:00 AM EDT MEDENT ([facility]) OFFICE OUTPATIENT VISIT 10 MINUTES 11/14/2020 12:00:00 AM EDT [facility] ([facility]) Debridement Nails Any Method 6 Or More 09/05/2020 12:0 0:00 AM EDT [facility] ([facility]) OFFICE OUTPATIENT VISIT 10 MINUTES 09/05/2020 12:00:00 AM EDT [facility] ([facility]) EXTREMITY STUDY EXTREMITY STUDY 08/14/2020 12:00:00 AM EDT [facility] ([facility]) Debridement Nails Any Method 6 Or More 06/27/2020 12:0 0:00 AM EST MEDENT ([facility]) OFFICE OUTPATIENT VISIT 10 MINUTES 06/27/2020 12:00:00 AM EST [facility] ([facility]) Debridement Nails Any Method 6 Or More 04/18/2020 12:0 0:00 AM EST [facility] ([facility]) Debridement Nails Any Method 6 Or More 02/08/2020 12:0 0:00 AM EDT [facility] ([facility]) Results ID Date Data Source [id number] 02/25/2021 11:21:00 AM EDT [facility] Name Value Range Interpretation Code Description Data Moni rce(s) Supporting Document(s) FVC-Pred 2.79 L [facility] ([facility], ) PDFReport Laboratory test result MEDENT ([facility], ) FVC-Pre 1.36 L [facility] ([facility], ) FVC-LLN 2.14 L [facility] ([facility], ) FVC-%Pred-Pre 48 L MED[facility] ([facility], ) Fev1-Pred 2.11 L [facility] ([facility], ) Fev1-%Pred-Pre 33 L MEDENT ([facility], ) Fev1-Pre 0.70 L [facility] ([facility], ) Fev6-Pred 2.67 L [facility] ([facility], ) Fev1-LLN 1.56 L [facility] ([facility], ) Fev6-%Pred-Pre 50 L [facility] ([facility], ) Fev6-Pre 1.36 L [facility] ([facility]) Fev6-LLN 2.03 L [facility] ([facility], ) Ozx5idp-Qkxk 76 % [facility] ([facility]) Jai5kid-%Pred-Pre 68 % [facility] ([facility]) Nnb3qpm-Edy 52 % [facility] ([facility]) Afx5snk-Mopr 96 % [facility] ([facility]) Whr6bgl-BFV 66 % [facility] ([facility]) Yii1nkf-Pog 100 % [facility] ([facility]) FEFMax-Pred 5.42 L/E/sec [facility] ([facility], ) FEFMax-Pre 1.43 L/E/sec [facility] ([facility], ) Bly1rwd-%Pred-Pre 104 % [facility] ([facility]) FEFMax-LLN 3.81 L/E/sec [facility] ([facility]) FEFMax-%Pred-Pre 26 L/E/sec [facility] ([facility]) Uza1343-Xclv 1.83 L/E/sec [facility] ([facility]) Zkh6113-%Pred-Pre 19 L/E/sec [facility] ([facility] ) Smc6521-XLJ 0.67 L/E/sec [facility] ([facility], ) Siy3157-Rel 0.37 L/E/sec [facility] ([facility], ) ExpTime-Pre 6.33 sec [facility] ([facility], ) Zfn5bbf1-Isa 52 % [facility] ([facility], ) Txu7bmj1-Irzz 79 % [facility] ([facility], ) Weo1esg3-%Pred-Pre 65 % [facility] ([facility], ) Xvy0wzq7-VQD 70 % [facility] ([facility]) ID Date Data Source [id number] 02/10/2021 01:02:43 PM EDT [facility] Name Value Range Interpretation Code Description Data Moni rce(s) Supporting Document(s) Progress Note [facility] [id number] lbm [file] [id number] ID Date Data Source [id number] 02/05/2021 03:41:07 PM EDT [facility] Name Value Range Interpretation Code Description Data Moni rce(s) Supporting Document(s) Progress Note [facility] [id number] lbm [file] [id number]== ID Date Data Source [id number] 01/30/2021 07:19:25 PM EDT [facility] CT THORAX WITHOUT CONTRAST [id number] RE SULTInterpreted by:EMILIE MartinezROCEDURE INFORMATION: Exam: CT Chest Without Contrast; Diagnostic Exam date and time: 01/29/21 01:51 PM Age: 70 years old Clinical indication: Solitary pulmonary nodule; Additional info: Concerning findings on pet/ct, indeterminate left lung lesions, recommendation for short-interval CT chest TECHNIQUE: Imaging protocol: Diagnostic computed tomography of the chest without contrast. Radiation optimization: All CT scans at this facility use at least one of these dose optimization techniques: automated exposure control; mA and/or kV adjustment per patient size (includes targeted exams where dose is matched to clinical indication); or iterative reconstruction. COMPARISON: PET W CT IMAGING SKULL TO THIGH [id number] 12/26/20 11:00 AM FINDINGS: Lungs: 1.8 x 1.2 cm spiculated mass right lung apex concerning for malignancy, slight increase in size since comparison. Follow-up PET-CT or biopsy per Fleischner guidelines. New 1.2 x 1.0 cm spiculated mass in the right upper lobe posteriorly, significant increase in size since comparison. 1.9 x 1.1 cm spiculated mass left upper lobe anteriorly, increased in size and conspicuity since comparison. New spiculated mass right upper lobe posteriorly 1.6 x 1.0 cm, concern for malignancy. Focal lingular infiltrate similar to comparison. Severe underlying emphysema. Pleural spaces: Unremarkable. No pneumothorax. No pleural effusion. Heart: Unremarkable. No cardiomegaly. No pericardial effusion. Aorta: Unremarkable. No aortic aneurysm. Lymph nodes: Unremarkable. No enlarged lymph nodes. Bones/joints: Unremarkable. No acute fracture. Soft tissues: Unremarkable. IMPRESSION: 1. 1.8 x 1.2 cm spiculated mass right lung apex concerning for malignancy, slight increase in size since comparison. Follow-up PET-CT or biopsy per Fleischner guidelines. 2. New 1.2 x 1.0 cm spiculated mass in the right upper lobe posteriorly, significant increase in size since comparison. 3. 1.9 x 1.1 cm spiculated mass l eft upper lobe anteriorly, increased in size and conspicuity since comparison. 4. Focal lingular infiltrate similar to comparison. 5. Severe underlying emphysema. THIS DOCUMENT HAS BEEN ELECTRONICALLY SIGNED BY AMBROSIO LOYD MDThis document has been electronically signed by Ambrosio Loyd MD on 01/30/2021 7:19 PM Name Value Range Interpretation Code Description Data Moni rce(s) Supporting Document(s) ID Date Data Source [id number] 01/01/2021 12:37:49 PM [facility] Name Value Range Interpretation Code Description Data [facility] rce(s) Supporting Document(s) Progress Note [facility] [id number] [facility] [file] [id number]== ID Date Data Source [id number] 12/27/2020 01:28:29 PM EDT [facility] PET W CT IMAGING SKULL TO THIGH [id number] AL RESULTInterpreted by:Marito Moreno MDINDICATION: 70-year-old female with history of neoplasm of right lower lobe bronchus, presents for follow-up evaluation of new lesions identified on surveillance CT.TECHNIQUE: The study was performed at the [facility] [place]. Approximately 60 minutes following IV tracer administration, positron emission tomography was performed from the vertex of the skull through the proximal thighs. Non-contrast helical CT imaging was performed over the same range without breath-hold for attenuation correction of PET images and anatomic correlation, but not for primary interpretation as it is not of standard diagnostic quality. Images were reviewed in the axial, coronal and sagittal planes.Radiopharmaceutical: F-18-FDG.Dose 10.7 mCi. Blood Glucose: 92 mg/dL.COMPARISON: CT thorax dated 12/03/2020.FINDINGS:BLOOD POOL ACTIVITY LEVEL (Descending Thoracic Aorta): SUV max 2.4.SOFT TISSUE ACTIVITY LEVEL (Right Hepatic Lobe Parenchyma): SUV max 2.7.HEAD AND NECK: There is normal distribution of F-18 radiopharmaceutical in the visualized brain with no evidence of abnormal radiopharmaceutical uptake. It should be noted that a contrast enhanced CT or MRI is more sensitive for evaluation of brain masses. There is no FDG-avid disease or significant lymphadenopathy in the head and neck. The left maxillary sinus is partially opacified. There is deviation and angulation of the nasal septum towards the left. There are bilateral atherosclerotic calcifications involving the carotids.CHEST: Within the lungs, multiple nodules are again demonstrated in the bilateral lungs, as seen on the prior CT. The right upper lobe spiculated nodule measures approximately 1.9 cm and demonstrates an SUVmax of 5.3 c oncerning in appearance. There is an additional lesion in the posterior right upper lobe with an SUVmax of 3.1. There is a new opacity in the anterior left upper lobe which may represent subsegmental atelectasis in the setting of diffuse emphysematous lungs. Another region of FDG uptake is demonstrated in the lingula. This is similar to the prior examination and appears represent subsegmental atelectasis. The musculature and soft tissues of the chest wall are within normal limits. There is no axillary lymphadenopathy. The mediastinal structures are midline and the cardiac size is normal. There is no pericardial effusion. Atherosclerotic calcifications are demonstrated in the aortic arch and its branches as well as in the coronary vasculature. There is no mediastinal lymphadenopathy. A focus of increased radiotracer uptake is demonstrated at the right hilum, with an SUVmax of 3.2.ABDOMEN AND PELVIS: A paucity of intra- abdominal fat limits evaluation of the intra-abdominal organs. Physiologic upta ke of radiotracer is seen in the liver, pancreas, spleen, and the urinary system. Mild asymmetric radiotracer uptake in the left adrenal gland is likely physiologic. Again seen, are multiple calcific densities in the region of the pancreas. The bowel is nonobstructed and there is no gross abnormality. Atherosclerotic calcifications are demonstrated in the abdominal aorta, extending inferiorly into the pelvic vasculature.MUSCULOSKELETAL: There is no FDG-avid or destructive bone lesions. Severe degenerative changes are again demonstrated in the lumbar spine, including osteophytosis and grade 1 anterol isthesis of L2 on L3. There is intervertebral disc space narrowing of L2-3, L3- 4, and L4-5 with associated endplate sclerotic changes. IMPRESSION:1. Spiculated right upper lobe lesion with FDG avidity suspicious for a pulmonary neoplasm. An additional opacity with nonspecific FDG uptake is demonstrated in the posterior right upper lobe.2. Multiple focal airspace opacities in the left lung that likely represent airspace disease or subsegmental atelectasis. FDG uptake in these regions is favored to be inflammatory. Short interval follow-up with CT thorax is recommended.3. Additional stable findings, as described above.This document has been electronically signed by Jasper Cannon MD on 12/27/2020 1:26 PM Name Value Range Interpretation Code Description Data Moni rce(s) Supporting Document(s) ID Date Data Source [id number] 12/18/2020 08:25:19 AM T [facility] Name Value Range Interpretation Code Description Data [facility] rce(s) Supporting Document(s) Progress Note [facility] [id number]/[id number]5ZSsSNyNkZxDoUTT8 lbm [file] sales support engineer+ysAPLv66Fg6Z2fvdbw+rWgCZfGvS5eFRgVRmnzpNBKoT9FYAulNM+51X4VC7cgbpz5iqvOBqbpvV NkNwDnjoYqqpZMqM7XECc6a8Xl8RX4HiamBtt+X16rwN5rOtr2QQ7lDzA70nPB92acJfgYahjvy4bz7O xGrEL0tRr5vbE3EKZfuxD8NkF8jiMVkPmZNF/mfD7q w906aD12z+QQsw8HI1WRJLEK3axW94SEbdIZA2PrerDcAI8crwj+4cQ8fIMntKl/sUARf04SRQ/fL6PL DeYGDpUq5oUhe2U0zJS54sDQNdwpXTswIc3964AWj1JF1cus6zTtB7b8u+xrU5SDVUSTbrG9JKvJbUlm o6u8X1+/Ue6ZbPlDx6D5KD1OVfvMJb16hSecRm08U6 /DVtpk9uZ5yojFBy3W31pbtg+Rkn/obJ94/VPswtc/YdMmD//kpfJLrvz+m9DPoZ+Hl+4VdNW3ETWRnp LmJajP1xSj7a4K5kbwr0O6M0XuragN8mLM8ZUeAPBOmx/WnseXWpzanNqSujRVTXXGdJ/mdKVRH5jgS0 s4uHlTXCC8nPLeHf9/mYkS+tYPyw+y24c5JjT7UfYH qbeNvOjFp+70PVDN86qPwLT1pzYhs1R9+6zY+I54pFvAaRoZrx2qZBSZqGTMm4tzLnm2KcEMTuqQn/XW TtqF5nuxbxAUwuDuDKoR0dcFDaqfYS1lqGGhkrpBCaHuYq7DugYzpMBtkgOIQeEBJ+vP5G1UaQ0XRrY3 VnxH1cfNq2FkRYuR/fN4SX7S4qKil+kF6QtxxJlg0w EoUe7YMmRJyy+YH6ZScVbE2TvDHE7YvkYwwsXSJi1QUqv8b97IQ577ZqkXb73OkHspamE7WdupuiIL6p 3j60CkJTEvNeK0Q0s23Rv86nvON6kSKA6ec2d/7TyOoa4zmFKbEiyZ9q9CGbUkOIxNjSpEV1As0ioy44 eECh9f9+lh1RuEJ2CFeVjVe0b/zufpgp2ZNjrpwr+f Xz1JT9FUImGTig29WVmzPTyE43zxV3Qahml7V98CJEpMTy2ITgYg90W69Gs7SuYpJx6JJQ1B03HXwqnE 3Z3JY1BgSqyqvNo7oOue5oeT+mQv+5AQBdbsv7o7GV9r16wJ2hW0JOdCaXQSrTUHjJZVtSDpOZBVC1jK fuIk8BAuWHQoGTfUtJkFoyR9v/YzMGQLhiyGq3OWI2 ioYpuAduhxz1KV2VLTH9XDVnnVy7ubw011F8YvfcmnCRel1MncPoCDKDb/cePIDBY5VWNzr/AwbS5W7v tDgtoNw095w08BRc9UoPK05eJtAqg64UqDv2866Au6b+fOltU2dUDM2gNwooX+Fzo87Gp2fGi9/vFQ+w 4UchZVskbpgO5oUEK1JWt4W8D45QHt73nvOpbNXbwE 1NCiSbkVJ8c2sIVdAgLq0xki91mos03vDEtbNLd4HBuwj+JCuBXZ4fJpkPzTqtcJaSVVHpug3mJMMd/T t2cjTMGD0jgOD9Xr8cAcHWh8w4IIx21Uqhlsjb0eshxPla8aNXdJfzK0iFLp9AzWoBqvhPDr18FBl+GV Jorge A/uJHXwoGH6fHjf5Ib9RA4XpXAIfInYeeovSkCTR [file] AgICAgICAgICAgICAgICAgICAgICAgICAgICAgICAg IZUxXZZkBIMuYTDhNVNdZLJlBDYnCCNiWZVdILLqNOTlDTAkOVEbZBNuICBxIYYaVWQjKI9JICVyJQKb ICAgICAgICAgICAgICAgICAgICAgICAgICAgICAgICAgICAgICAgICAgICAgICAgICAgICAgICAgICAg ICAgICAgICAgICAgICAgICAgICAgICAgICAgICAgIC LlRQ3VUUZcGTCwDBQrFDZcHALmUJWxTZNpMRNpJNKnCDRtYZBbHXMnHTGtVFLaJAHaAKZqFXPlXJJkQT LgULYqRIDrBPDyCIJnXDVyQAPuWFBpFAVkCCYaWWZqVGSmTOEzUVBdQSWuFM5GAQKvKWByXKRuALLaFP AgICAgICAgICAgICAgICAgICAgICAgICAgICAgICAg BGHhIRCfZJUfLWXaOFCmCZNvORDdOLAmEGVyGUAsDRCbHXKhMLRmYOFvKNStQBPxDJJcEAOeSW4PZAGn ICAgICAgICAgICAgICAgICAgICAgICAgICAgICAgICAgICAgICAgICAgICAgICAgICAgICAgICAgICAg ICAgICAgICAgICAgICAgICAgICAgICAgICAgICAgIC UkKFAmWU3COIKqIHHyFVUuCJYiUUKcZMOmBHPbOMWzHRYqGDItHFCwMNRyWAKkLJTrENZpSXIyOUQsAX VmEMXqPTRjBONfYYMiPWCxGYLhDPToOXSxMOSeAVJmNHSpNJEnCPJiNLYhZTRcMA1MEQKeALUcISPuII AgICAgICAgICAgICAgICAgICAgICAgICAgICAgICAg NCXvRWNtLTDmOEUvMBCpNXHcHCIeEEHoHFVyGFUkSXQtAJJlSIEgAEKmGONgAQAlZOCxYZZvZFYqNK2M ICAgICAgICAgICAgICAgICAgICAgICAgICAgICAgICAgICAgICAgICAgICAgICAgICAgICAgICAgICAg ICAgICAgICAgICAgICAgICAgICAgICAgICAgICAgIC RdXHDwHCDeCS0OCNLwQGZnNPJzAUOyUHJtFFQyVMQdTINrQFCjAXJfHLTsKYXpJNMaUKCpBKKxTWMxWG BbFPGiDENgHHXqKOCpTTBbYLLbRFClMXNwMZXyTVVmVMDxNIPaELZtHXIaGMZlXGMrLA4IHHRwTOFkLB AgICAgICAgICAgICAgICAgICAgICAgICAgICAgICAg ICAgICAgICAgICAgICAgICAgICAgICAgICAgICAgICAgICAgICAgICAgICAgICAgICAgICAgICAgICAg WS7MQK71nECoo8L0XXWqNA0sgah/Pa5NSSbszhWtvOFvPJ4PLxAoAG8bqr6IGiTlXV6kap5ACRiLXgYt S4C2wIRlUNSvHKTKCoJqX58bPWvjBq24TXduUZJrAg ZxQNz9Uc1VXhOoB0zoKZMyAjY2MUKwNxR4IFHpGhO6LZVbFsAfTUWoYJSmCS7RBLEgO642agWfMC9WAt 2CCiIgMV1eqd6BChNeSTTvEucGPwm0AHbjCO3EkXLhyCYeVAWeLBNGOdUbT6ups2GvTbKqGWECJJqiPP 3Nc0IdnZBuVRx+Pv0NWB5sa7OdEXbxFXBgYB8afk9C HRoPVcBrT8YsrJjrHZOau9jrUNGvQZ2ufLEiCMZ3XVWvm0OfhKINRTDlu1uwSIcyz8saFX2JICI4MGxl Ud6dYZZoGZKaKjB1TLRKQQ6JDEXeEQAinRGmDNHiHADDWJ1HTJvqKFL0ZVKyrxQgpGDqQCjaEU5SDSOe bnQgMzAgMCBSDQo+Tl6CWM0os6ZkNExlWpXbKQ1hvi 9VKClMKaSyO6O0tBLnC1B2YEppWi1LCEKaBRVfCqedAIOOZJeiBQ4DQI5zceO3ZB3IcYJsKXGmGVTtaE DrBZg2N72qpROpERkmBK6DCKN+Ilda+Ro7BAHYuCWQaTMUsDzCkHCEBZwKtA7TbB3MCx1SlE8EdKI59rT wxghExJImuOK9GWL5yUJElUOFWLS7RwNZybB6zctJf TGEsNJWWLjChN28qfGYbIXXgQGJ6NVQhWx1FIPIkD4FyslIulMbfyuBlEZLfJGVETB4HUDtqigHdsQQs eFozRA27bDzzIQ7TSx4CEgMzEY8zbu5HcABqCd4DCUNcTi8IGVScYWVnUVBiMRS6ALNuAkGhFWzuCLHh YWQcNXG2DFCyLTSjEH8RMrWoMXQyODiwMvViOFMnBV Sdqs0OQYTkMEW8BAPdWTYaLJRwJOMpDRwyUXJoAUPcYUO2UHTvGXGcRS0IVoFmHJUcJBI3ZINcUSIkBQ Sluj7XVYSjMNZvVvzyKeAtBJDfTTBwGOudJRCgXMD7JWu3VLLxRYCjIH5JTtFjESXeGYdmPZpdAHTqVU Xkyt9PUSCqGLMcEIS6DzGmNFGxWFQjGUfnHDVnUHSe RcruQSYxLMOmUA0LTvJmENSbURLsSdDmUNWgSKYute7PQJLdFTTiPLC1UJUxMHUrJYXuNIhmIIPnUEW5 OCTrAWUuZFMhPL2IEvGzZMXrLBL0SUuaAFVuSLBjqf9UTQDqILIwSSx8IVGkRQKtPXGpKPvoPSNwKNX2 DaX2RANhINBoNX0TIdQpESAdUYL3GVDiUSTgKEVpdj 5QVFYvECImMhAeTPVxECMzMEEkONhvJQLwJXZ7DVH6YHLiFAQiJI9XPjAyOARxHrp8XQUoSXCqEMJexg 0KCHNvSMMaVHP4VnDfFZTxGKSaTQrwROWsFBJ8OkIoBIBvZYPzAR0HToYxOGKqRgu3PXdaXPXeTNZlxn 0XFFDeJQR8SnvyQXWoFRObURDoPEzfMHUoGZE3Mfwy PLJnDTZdXN9XOpGlBKHwAAu5DNJvZKXbSCDvqt1BTFXwTMB4ZEIlBRRkBLOzORYpNKlhBOFrNGL8QpIl IXXdPXZrTD5HNpYdZKVtZSq6VhuhYMSeUSVmqh0DCQPeFQO3QSFxFcJqPECfSUAtWXwdCITlYCSuDBh9 OKKpSABuKW3XJqSkVORgJCOqTTWlKFZjRQAhgo3NtG ZphXzque3ERNkDQd8LySujHGOaUBjjKh1vsNQdLiDmMSWWRo9PxvJhOPLyCQOGFLpxENVxDGE4VcKzO6 VxWIJ2A5H6RMhtB7B3RhAbRqb3HRMsOuvrMmW2VOI1AXJ8EKIdZiUcXTr7SREbIxm2XoGsHzrrAbX8V7 I+LU7lZQw+Kp8Sl3FklsV5laHoBRt3ATF8EV6WPTDKS5AVUo== ID Date Data Source [id number] 12/06/2020 11:06:[address] [facility] [address] THORAX WITHOUT CONTRAST [id number] RE SULTInterpreted by:Nabeel Sparks MDINDICATION: History of lung cancer with new right upper lobe nodule.TECHNIQUE: CT thorax with contrast. 5 mm and 1.25 mm thick sections were made using helical technique from lung apices through adrenal glands. Intravenous contrast was administered. Automated dose lowering techniques and/or adjustment according to patient size were utilized for this exam.COMPARISON: CT thorax 08/27/2020.FINDINGS: Lower Neck/Axilla: No lymphadenopathy in the lower cervical and axillary stations. The visualized thyroid gland is unremarkable.Chest Wall/Osseous Structures: The chest wall is normal in appearance. There are no suspicious osseous lesions. Multilevel degenerative changes of thoracic spine.Mediastinum And Pulmonary Elizabeth: Subcentimeter shotty lymph nodes in the mediastinum. No enlarged hilar lymphadenopathy, however evaluation is limited due to the lack of contrast. Heart, Pericardium And Great Vessels: The heart is normal in size. There is no pericardial effusion. Multivessel coronary artery calcifications are noted. The thoracic aorta and main pulmonary artery are normal in size. There is calcified atherosclerotic disease in the thoracic aorta.Lungs, Pleura And Airways: The trachea and central airways are patent. Airway patency is demonstrated through the segmental level. No pleural effusion or pneumothorax.There is advanced centrilobular emphysema. Stable calcified granuloma in the posterior right upper lobe. There is no evidence of acute airspace disease.Pulmonary nodules as below:1. Interval development of a spiculated mass in the right upper lobe measuring 8.0 x 2.8 cm (image 48).2. Minimal interval increase in size of a solid spiculated mass in the right upper lobe measuring 1.6 x 0.8 cm (image 59) as compared to prior study when it measured 1 x 0.8 cm. However there is interval filling of the cavity within the lesion.3. 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 Interval increase in size of a spiculated mass in the posterior right upper lobe measuring 1.1 x 1.5 cm (image 93), previously measuring 0.6 x 0.5 cm.5. Stable 4 mm nodule in the right middle lobe (image 188).6. Stable spiculated nodule in the right lower lobe measuring 0.8 x 0.7 cm (image 206), producing measuring 0.8 x 0.7 cm.7. Interval development of a spiculated nodule in the right lung base measuring 6 mm (image 258).8. Stable pleural-based opacities in the left upper lobe and the lingula (axial image 72, 187 respectively).9. Interval development of airspace opacity in the left lung apex (image 74/316).Upper Abdomen: The visualized portions of the upper abdomen are unremarkable.IMPRESSION: 1. Interval development of new spiculated nodules and interval increase in size of previousl y seen nodules in the lungs as described above, predominantly within the right upper lobe. This could be infective/inflammatory in etiology. However considering patient's history of primary lung cancer, malignancy/metastatic disease is in differential. A follow-up scan in 6 weeks is suggested. If the nodules do not resolve or worsens in the interim, tissue sampling and/or PET/CT is suggested. 2. Stable appearance of the right lower lobe nodule subject to radiation treatment dating back to 11/28/2019.This document has been electronically signed by SUSAN Sparks on 12/06/2020 11:03 AM Name Value Range Interpretation Code Description Data Moni rce(s) Supporting Document(s) ID Date Data Source [id number] 11/14/2020 12:03:00 PM EDT [facility] ([facility]) Name Value Range Interpretation Code Description Data Moni rce(s) Supporting Document(s) Reported Physicians See Note Reported Physici ans [facility] ([facility]) Note: Reported Physicians:Ordering: Purdy e, Renate AAttending: ABRAHAM, JOCELYNConsulting: ABRAHAM, JOCELYNCopy To: Abraham, Renate ID Date Data Source [id number] 11/14/2020 12:03:00 PM EDT [facility] ([facility]) Name Value Range Interpretation Code Description Data Moni rce(s) Supporting Document(s) TSH 3.42 uIU/mL TSH [facility] ([facility]) Note: Responsible Observer: (STORM) ID Date Data Source [id number] 11/14/2020 12:03:00 PM EDT [facility] ([facility]) Name Value Range Interpretation Code Description Data Moni rce(s) Supporting Document(s) [facility] Note: Reported Physicians:Ordering: Purdy e, Renate AAttending: ABRAHAM, JOCELYNConsulting: ABRAHAM, JOCELYNCopy To: Abraham, Renate ID Date Data Source [id number] 11/14/2020 12:03:00 PM EDT [facility] ([facility]) Name Value Range Interpretation Code Description Data Moni rce(s) Supporting Document(s) #BASO 0.03 10\\^3/uL #BASO [facility] ([facility]) Note: Responsible Observer: (MRW) #EOS 0.04 10\\^3/uL #EOS [facility] ([facility]) Note: Responsible Observer: (MRW) #IG 0.02 10\\^3/uL #IG [facility] ([facility]) Note: Responsible Observer: (MRW) #LYMPH 1.15 10\\^3/uL #LYMPH [facility] ([facility]) Note: Responsible Observer: (MRW) #MONO 0.61 10\\^3/uL #MONO [facility] ([facility]) Note: Responsible Observer: (MRW) #NEUT 6.52 10\\^3/uL #NEUT [facility] ([facility]) Note: Responsible Observer: (MRW) #NRBC 0.00 10\\^3/uL #NRBC [facility] ([facility]) Note: Responsible Observer: (MRW) %IG 0.2 % Above high normal %IG [facility] ([facility]) Note: Responsible Observer: (MRW) %NRBC 0.0 % %NRBC [facility] ([facility]) Note: Responsible Observer: (MRW) BASO 0.4 % BASO [facility] ([facility]) Note: Responsible Observer: (MRW) EOS 0.5 % EOS [facility] ([facility]) Note: Responsible Observer: (MRW) CBC W/AUTOMATED DIFF See Note CBC W/AUTOMATED DIFF [facility] ([facility]) Note: COMPLETE BLOOD COUNTResponsibl e Observer: (MRW) Hematocrit [Pure volume fraction] of Blood by Automated count 33 .3 % Below low normal HEMATOCRIT [facility] ([facility]) Note: Responsible Observer: (MRW) Hemoglobin [Mass/volume] in Mixed venous blood by Oximetry 10.6 g/dL Below low normal HEMOGLOBIN [facility] ([facility]) Note: Responsible Observer: (MRW) LYMPH 13.7 % Below low normal LYMPH [facility] ([facility]) Note: Responsible Observer: (MRW) MANUAL DIFF NOT INDICATED MANUAL DIFF [facility] ([facility]) Note: Responsible Observer: (MRW) MCH 35.3 pg Above high normal MCH [facility] ([facility]) Note: Responsible Observer: (MRW) MCHC 31.8 g/dL MCHC [facility] ([facility]) Note: Responsible Observer: (MRW) MCV 111.0 fL Above high normal MCV [facility] ([facility]) Note: Responsible Observer: (MRW) MONO 7.3 % MONO [facility] ([facility]) Note: Responsible Observer: (MRW) MPV 9.1 fL MPV [facility] ([facility]) Note: Responsible Observer: (MRW) NEUT 77.9 % NEUT [facility] ([facility]) Note: Responsible Observer: (MRW) Platelets [#/area] in Blood by Microscopy high power field 389 10\\^ 3/uL PLATELETS [facility] ([facility]) Note: Responsible Observer: (MRW) RBC 3.00 10\\^6/uL Below low normal RBC [facility] ([facility]) Note: Responsible Observer: (MRW) RBC MORPH NOT INDICATED RBC MORPH [facility] ([facility]) Note: Responsible Observer: (MRW) RDW 12.1 % RDW [facility] ([facility]) Note: Responsible Observer: (MRW) WBC 8.4 10\\^3/uL WBC [facility] ([facility]) Note: Responsible Observer: (MRW) ID Date Data Source [id number] 11/14/2020 12:03:00 PM EDT [facility] ([facility]) Name Value Range Interpretation Code Description Data Moni rce(s) Supporting Document(s) Reported Physicians See Note Reported Physici ans [facility] ([facility]) Note: Reported Physicians:Ordering: Renate Starr AAttending: RENATE ROSARIOConsulting: Gwen ROSARIO To: Renate Rosario ID Date Data Source [id number] 11/14/2020 12:03:00 PM EDT [facility] ([facility]) Name Value Range Interpretation Code Description Data Moni rce(s) Supporting Document(s) VITAMIN-D(25HYDROXY) 74 NG/ML VITAMIN-D(25HYD ANUM) [facility] ([facility]) Note: VITAM IN-D(25HYDROXY) Deficiency: <=20 ng/ml Insufficiency: 21-29 ng/ml Preferred level: => 30 ng/mlResponsible Observer: (STORM) ID Date Data Source [id number] 11/14/2020 12:03:00 PM EDT [facility] ([facility]) Name Value Range Interpretation Code Description Data Moni rce(s) Supporting Document(s) Reported Physicians See Note Reported Physic ans [facility] ([facility]) Note: Reported Physicians:Ordering: Purdy e, Renate AAttending: ABRAHAM, JOCELYNConsulting: ABRAHAM, JOCELYNCopy To: Abraham, Renate ID Date Data Source [id number] 11/14/2020 12:03:00 PM EDT [facility] ([facility]) Name Value Range Interpretation Code Description Data Moni rce(s) Supporting Document(s) Triiodothyronine (T3),Free 2.1 pg/mL Triiodoth yronine (T3),Free [facility] ([facility]) Note: Responsible Observer: (bill) ID Date Data Source [id number] 11/14/2020 12:03:00 PM EDT [facility] ([facility]) Name Value Range Interpretation Code Description Data Moni rce(s) Supporting Document(s) Reported Physicians See Note Reported [facility] ([facility]) Note: Reported Physicians:Ordering: Purdy e, Renate AAttending: ABRAHAM, JOCELYNConsulting: ABRAHAM, JOCELYNCopy To: Abraham, Renate ID Date Data Source [id number] 11/14/2020 12:03:00 PM EDT [facility] ([facility]) Name Value Range Interpretation Code Description Data Moni rce(s) Supporting Document(s) Cholesterol [Moles/volume] in Pericardial fluid 200 MG/DL CHOLESTEROL [facility] ([facility]) Note: Responsible Observer: (STORM) CVE PANEL See Note CVE PANEL [facility] ([facility]) Note: LIPID PANELResponsible Observe r: (STORM) HDL 79 MG/DL HDL [facility] ([facility]) Note: Responsible Observer: (STORM) Cholesterol in LDL [Mass/volume] in Serum or Plasma by Direct as say 105 mg/dL LDL [facility] ([facility]) Note: Responsible Observer: (STORM) LDL/HDL 1.33 Below low normal LDL/HDL [facility] ([facility]) Note: CVE RISK CHOL/HD L LDL/HDLMEN: 1/2 AVERAGE 3.43 1.00 AVERAGE 4.97 3.55 2X AVERAGE 9.55 6.25 3X AVERAGE 23.99 7.99WOMEN: 1/2 AVERAGE 3.27 1.47 AVERAGE 4.44 3.22 2X AVERAGE 7.05 5.03 3X AVERAGE 11.04 6.14Responsible Observer: (STORM) RISK FACTOR 2.5 Below low normal RISK FACTOR [facility] ([facility]) Note: Responsible Observer: (STORM) TRIGLYCERIDES 149 MG/DL TRIGLYCERIDES [facility] ([facility]) Note: Responsible Observer: (STORM) ID Date Data Source [id number] 11/14/2020 12:03:00 PM EDT [facility] ([facility]) Name Value Range Interpretation Code Description Data Moni rce(s) Supporting Document(s) Reported Physicians See Note Reported Physic ans [facility] ([facility]) Note: Reported Physicians:Ordering: Renate Starr AAttending: DANIELLE ROSARIOCELYNConsulting: DANIELLE ROSARIOCELYNCopy To: Renate Rosario ID Date Data Source [id number] 11/14/2020 12:03:00 PM EDT [facility] ([facility]) Name Value Range Interpretation Code Description Data Moni rce(s) Supporting Document(s) T4 FREE 1.07 NG/DL T4 FREE [facility] ([facility]) Note: Responsible Observer: (STORM) ID Date Data Source [id number] 11/14/2020 12:03:00 PM EDT [facility] ([facility]) Name Value Range Interpretation Code Description Data Moni rce(s) Supporting Document(s) Reported Physicians See Note Reported [facility] ([facility]) Note: Reported Physicians:Ordering: Renate Starr AAttending: RENATE ROSARIOConsulting: Gwen ROSARIO To: Renate Rosario ID Date Data Source [id number] 11/14/2020 12:03:00 PM EDT [facility] ([facility]) Name Value Range Interpretation Code Description Data Moni rce(s) Supporting Document(s) A/G RATIO 1.5 A/G RATIO [facility] ([facility]) Note: Responsible Observer: (STORM) AFR AMER GFR >60 AFR AMER GFR [facility] ([facility]) Note: Male GFR Interprentation 20- 49 yrs >60 mL/min Normal 50-59 yrs >56 mL/min Normal 60-69 yrs >49 mL/min Normal 70- 79yrs >42 mL/min Normal 80 and above >35 mL/min Normal Female GFR Interpretation 20-39 yrs >60 mL/min Normal 40-49 yrs >58 mL/min Normal 50-59 yrs >51 mL/min Normal 60-69 yrs >45 mL/min Normal 70-79 yrs >39 mL/min Normal 80 and above >32 mL/min NormalResponsible Observer: (STORM) Egg donor age 70 yrs AGE [facility] ([facility]) Note: Responsible Observer: (STORM) Albumin [Mass/volume] in Blood by Bromocresol purple ( BCP) dye binding method 4.6 G/DL ALBUMIN [facility] ([facility]) Note: Responsible Observer: (STORM) ALKALINE PHOS 63 U/L ALKALINE PHOS [facility] ([facility]) Note: Responsible Observer: (STORM) Anion gap in Body fluid 8.0 mmol/L [facility] Note: Responsible Observer: (STORM) BUN 17 MG/DL BUN [facility] ([facility]) Note: Responsible Observer: (STORM) BUN/CREAT 43 Above high normal BUN/CREAT [facility] ([facility]) Note: Responsible Observer: (STORM) Calcium [Moles/volume] in Urine collected for unspecified durati on 9.8 MG/DL CALCIUM [facility] ([facility]) Note: Responsible Observer: (STORM) Chloride [Moles/volume] in Serum, Plasma or Blood 98 mEq/L CHLORIDE [facility] ([facility]) Note: Responsible Observer: (STORM) CO2 32 MEQ/L Above high normal CO2 [facility] ([facility]) Note: Responsible Observer: (STORM) COMPREHENSIVE METABOLIC PANEL See Note COMPRE HENSIVE METABOLIC PANEL [facility] ([facility]) Note: COMPREHENSIVE METABOLIC PANELR esponsible Observer: (STORM) Creatinine [Moles/volume] in Vitreous fluid 0.4 MG/DL Below low normal CREATININE [facility] ([facility]) Note: Responsible Observer: (STORM) Globulin [Mass/time] in 24 hour Urine 3.1 GM/DL GLOBULIN [facility] ([facility]) Note: Responsible Observer: (STORM) Glucose [Mass/volume] in Urine collected for unspecified duration 8 7 MG/DL GLUCOSE [facility] ([facility]) Note: Responsible Observer: (STORM) NON-AA GFR >60 mL/min NON-AA GFR [facility] ([facility]) Note: Responsible Observer: (STORM) Potassium [Mass/volume] in Blood 4.9 mEq/L POT ASSIUM [facility] ([facility]) Note: Responsible Observer: (STORM) SGOT/AST 16 U/L SGOT/AST [facility] ([facility]) Note: Responsible Observer: (STORM) SGPT/ALT 8 U/L SGPT/ALT [facility] ([facility]) Note: Responsible Observer: (STORM) Sodium [Moles/volume] in Serum, Plasma or Blood 138 mEq/L SODIUM [facility] ([facility]) Note: Responsible Observer: (STORM) TOTAL BILI <0.7 MG/DL TOTAL BILI [facility] ([facility]) Note: Responsible Observer: (STORM) TOTAL PROTEIN 7.7 G/DL TOTAL PROTEIN [facility] ([facility]) Note: Responsible Observer: (STORM) ID Date Data Source [id number] 11/16/2020 07:09:00 PM EDT [facility] Name Value Range Interpretation Code Description Data Moni rce(s) Supporting Document(s) Triiodothyronine (T3) Free [Mass/volume] in Serum or Plasma 2.1 pg/ mL 2.0-4.4 [facility] ID Date Data Source [id number] 11/15/2020 08:07:00 AM EDT [facility] Name Value Range Interpretation Code Description Data Moni rce(s) Supporting Document(s) Calcidiol [Moles/volume] in Serum or Plasma 74 NG/ML [facility] VITAMIN-D(2 5HYDROXY) Deficiency: <=20 ng/ml Insufficiency: 21-29 ng/ml Preferred level: => 30 ng/ml ID Date Data Source [id number] 11/14/2020 12:56:00 PM [facility] Name Value Range Interpretation Code Description Data Moni rce(s) Supporting Document(s) Thyroxine (T4) free index in Serum or Plasma by calculation 1.07 NG/DL 0.93 - 1.70 [facility] ID Date Data Source [id number] 11/14/2020 12:56:00 PM T [facility] Name Value Range Interpretation Code Description Data Mnoi rce(s) Supporting Document(s) Thyrotropin [Units/volume] in Serum or Plasma by Detec tion limit <= 0.05 mIU/L 3.42 uIU/mL 0.47 - 5.01 [facility] ID Date Data Source [id number] 11/14/2020 12:45:00 PM T [facility] Value Range Interpretation Code Description Data Moni rce(s) Supporting Document(s) COMPREHENSIVE METABOLIC PANEL [facility] COMPREHENSIVE METABOLIC PANEL Sodium [Moles/volume] in Serum or Plasma 138 mEq/L 134 - 153 [facility] Potassium [Moles/volume] in Serum or Plasma 4.9 mEq/L 3.6 - 5.0 [facility] Chloride [Moles/volume] in Serum or Plasma 98 mEq/L 98 - 107 [facility] Carbon dioxide, total [Moles/volume] in Serum or Plasma 32 MEQ/L 22 - 30 H [facility] Glucose [Mass/volume] in Serum or Plasma 87 MG/DL 70 - 99 [facility] BUN 17 MG/DL 7 - 21 [facility] Creatinine [Mass/volume] in Serum or Plasma 0.4 MG/DL 0.7 - 1.5 L [facility] BUN/CREAT 43 8 - 27 H [facility] Protein [Mass/volume] in Serum or Plasma 7.7 G/DL 6.3 - 8.2 [facility] Albumin [Mass/volume] in Serum or Plasma 4.6 G/DL 3.9 - 5.0 [facility] Globulin [Mass/volume] in Serum by calculation 3.1 GM/DL 2.4 - 3.2 [facility] A/G RATIO 1.5 0.8 - 2.0 [facility] Calcium [Mass/volume] in Serum or Plasma 9.8 MG/DL 8.4 - 10.2 [facility] Bilirubin.total [Mass/volume] in Serum or Plasma <0.7 MG/DL 0.2 - 1.3 [facility] Alkaline phosphatase [Enzymatic activity/volume] in Serum or Plasma 63 U/L 38 - 126 [facility] Aspartate aminotransferase [Enzymatic activity/volume] in Serum or Plasma 16 U/L 5 - 40 [facility] Alanine aminotransferase [Enzymatic activity/volume] in Seru m or Plasma 8 U/L 7 - 56 [facility] Anion gap 3 in Serum or Plasma 8.0 mmol/L 8.0 - 16.0 [facility] AGE 70 yrs [facility] al NON-AA GFR >60 mL/min [facility] ital AFR AMER GFR >60 [facility] Male GFR In terprentation 20-49 yrs >60 mL/min Normal 50-59 yrs >56 mL/min Normal 60-69 yrs >49 mL/min Normal 70-79yrs >42 mL/min Normal 80 and above >35 mL/min Normal Female GFR Interpretation 20-39 yrs >60 mL/min Normal 40-49 yrs >58 mL/min Normal 50-59 yrs >51 mL/min Normal 60-69 yrs >45 mL/min Normal 70-79 yrs >39 mL/min Normal 80 and above >32 mL/min Normal ID Date Data Source [id number] 11/14/2020 12:45:00 PM EDT [facility] Name Value Range Interpretation Code Description Data Moni rce(s) Supporting Document(s) CVE PANEL [facility] LIPID PANEL Cholesterol [Mass/volume] in Serum or Plasma 200 MG/DL 131 - 200 [facility] Deprecated Triglyceride [Mass/volume] in Serum or Plasma 149 MG/DL 3 5 - 160 [facility] HDL 79 MG/DL 29 - 86 [facility] Cholesterol in LDL [Mass/volume] in Serum or Plasma by Direc t assay 105 mg/dL 65 - 175 [facility] Cholesterol.total/Cholesterol in HDL [Mass Ratio] in Serum o r Plasma 2.5 3.2 - 4.4 L [facility] LDL/HDL 1.33 1.47 - 3.22 L [facility] ital CVE RISK CHOL/HDL LDL/HDLMEN: 1/2 AVERAGE 3.43 1.00 AVERAGE 4.97 3.55 2X AVERAGE 9.55 6.25 3X AVERAGE 23.99 7.99WOMEN: 1/2 AVERAGE 3.27 1.47 AVERAGE 4.44 3.22 2X AVERAGE 7.05 5.03 3X AVERAGE 11.04 6.14 ID Date Data Source [id number] 11/14/2020 12:15:00 PM EDT [facility] Name Value Range Interpretation Code Description Data Moni rce(s) Supporting Document(s) CBC W/AUTOMATED DIFF [facility] COMPLETE BLOOD COUNT Leukocytes [#/volume] in Blood by Automated count 8.4 10^3/uL 4.2 - 1 1.0 [facility] Erythrocytes [#/volume] in Blood by Automated count 3.00 10^6/uL 4. 20 - 5.40 L [facility] Hemoglobin [Mass/volume] in Blood 10.6 g/dL 12.0 - 16.0 L [facility] Hematocrit [Volume Fraction] of Blood by Automated count 33.3 % 3 7.0 - 47.0 L [facility] Erythrocyte mean corpuscular volume [Entitic volume] b y Automated count 111.0 fL 81.0 - 101 H [facility] Erythrocyte mean corpuscular hemoglobin [Entitic mass] by Automated count 35.3 pg 27.0 - 34.0 H [facility] Erythrocyte mean corpuscular hemoglobin concentration [Mass/volume] by Automated count 31.8 g/dL 31.0 - 36.0 [facility] Erythrocyte distribution width [Ratio] by Automated count 12.1 % 11.5 - 14.5 [facility] Platelets [#/volume] in Blood by Automated count 389 10^3/uL 150 - 45 0 [facility] Platelet mean volume [Entitic volume] in Blood by Automated count 9.1 fL 7.4 - 10.4 [facility] Neutrophils/100 leukocytes in Blood by Automated count 77.9 % 37. 0 - 80.0 [facility] Lymphocytes/100 leukocytes in Blood by Manual count 13.7 % 25.0 - 40.0 L [facility] Monocytes/100 leukocytes in Blood by Automated count 7.3 % 3.0 - 8.0 [facility] Eosinophils/100 leukocytes in Blood by Automated count 0.5 % 0.0 - 7.0 [facility] Basophils/100 leukocytes in Blood by Automated count 0.4 % 0.0 - 2.5 [facility] %IG 0.2 % 0.0 - 0.0 [facility] 0.0 % 0.0 - 0.0 [facility] Neutrophils [#/volume] in Blood by Automated count 6.52 10^3/uL 2.00 - 6.90 [facility] Lymphocytes [#/volume] in Blood by Automated count 1.15 10^3/uL 0.60 - 3.40 [facility] Monocytes [#/volume] in Blood by Automated count 0.61 10^3/uL 0.00 - 0.90 [facility] Eosinophils [#/volume] in Blood by Automated count 0.04 10^3/uL 0.00 - 0.70 [facility] Basophils [#/volume] in Blood by Automated count 0.03 10^3/uL 0.00 - 0.20 [facility] #IG 0.02 10^3/uL 0.00 - 0.10 [facility] #NRBC 0.00 10^3/uL 0.00 - 0.00 [facility] MANUAL DIFF NOT INDICATED [facility] RBC MORPH NOT INDICATED [facility] ID Date Data Source [id number] 09/07/2020 01:18:20 PM EDT [facility] Name Value Range Interpretation Code Description Data Moni rce(s) Supporting Document(s) Progress Note [facility] [id number] lbm [file] [id number] ID Date Data Source [id number] 08/29/2020 10:12:[address] [facility] [address] THORAX WITHOUT CONTRAST [id number] SULTInterpreted by:Rasheed Reyes, MDPROCEDURE INFORMATION: Exam: CT Chest Without Contrast; Diagnostic Exam date and time: 08/27/2020 2:09 PM Age: 69 years old Clinical indication: Malignant neoplasm of lower lobe, right bronchus or lung; Condition or disease; Lung condition and disease; Cancer of the lung; Overlapping areas; Follow-up oncological assessment; Additional info: Right lower lobe non-small cell lung cancer treated with SBRT 01/2018, 9 month interval surveillance TECHNIQUE: Imaging protocol: Diagnostic computed tomography of the chest without contrast. Coronal and sagittal reformats were created and reviewed. 3D rendering (Not supervised by radiologist): MIP and/or 3D reconstructed images were created by the technologist. Radiation optimization: All CT scans at this facility use at least one of these dose optimization techniques: automated exposure control; mA and/or kV adjustment per patient size (includes targeted exams where dose is matched to clinical indication); or iterative reconstruction. COMPARISON: 1. CT THORAX WITHOUT CONTRAST [id number] 04/11/2019 12:21:[address] Chest without contrast 12/14/2017 8:36:[address] THORAX WITHOUT CONTRAST [id number] 11/28/2019 3:09 PM FINDINGS: Lungs: The right lower lobe solid noncalcified nodule subject to prior radiation treatment currently measures 8 x 5 x 4 mm (series 3, image 197); this is not significantly changed in size compared to 11/28/2019 when per my measurements it measured 8 x 5 x 3 mm. The trachea is unremarkable. Scattered small bronchial mucous plugging within the left lung. Bilateral upper lung predominant severe paraseptal and centrilobular emphysema redemonstrated. Increased mostly linear airspace opacities within the lingula amongst crowded bronchi probably representing mild atelectasis. Left upper lobe small scattered tree-in-bud opacities. There are 5 new solid noncalcified nodular opacities with ill-defined margins present within the right upper lobe apex (series 3, images 51 through 92). The largest new nodule measures 10 mm (series 3, image 79). Another example new nodule measures 7 mm (image 64). Unchanged calcified subcentimeter right upper lobe nodule consistent with a benign remote granuloma compared to 12/14/2017. Pleural spaces: No pleural effusion. No pneumothorax.Heart: Coronary arterial atherosclerotic calcifications are present. Heart size is within normal limits. No pericardial effusion. Mediastinal space: No abnormal esophageal dilation. No mediastinal mass. Pulmonary arteries: The central pulmonary arteries remain mildly dilated. Aorta: Moderate aortic atherosclerosis. No thoracic aortic aneurysm. Lymph nodes: No adenopathy by CT size criteria. Bones/joints: The bones appear diffusely demineralized. Multilevel degenerative spine disease. No aggressive-appearing osseous lesion. Soft tissues: Unremarkable. IMPRESSION: 1. The right lower lobe nodule subject to radiation treatment is stable compared to 11/28/2019. 2. Multiple new right upper lobe pulmonary nodules, the largest measuring 10 mm. These may represent infectious/inflammatory nodules, however neoplastic nodules are not excluded. Short-term chest CT follow-up (for example in 2-3 months) is recommended. 3. Increased lingular airspace opacities probably representing mild atelectasis. Attention to this on the follow-up examinations is recommended to exclude an underlying growing nodule. 4. Findings consistent with bronchitis and mild bronchiolitis. 5. Severe pulmonary emphysema. THIS DOCUMENT HAS BEEN ELECTRONICALLY SIGNED BY RASHEED REYES MDThis document has been electronically signed by Rasheed Reyes MD on 08/29/2020 10:12 AM Name Value Range Interpretation Code Description Data Moni rce(s) Supporting Document(s) ID Date Data Source [id number] 08/22/2020 12:59:00 PM EDT [facility] ([facility]) Name Value Range Interpretation Code Description Data Moni rce(s) Supporting Document(s) T4 FREE 1.40 NG/DL T4 FREE [facility] ([facility] Note: Responsible Observer: (LBS) ID Date Data Source [id number] 08/22/2020 12:59:00 PM EDT [facility] ([facility]) Name Value Range Interpretation Code Description Data Moni rce(s) Supporting Document(s) Reported Physicians See Note Reported [facility]) Note: Reported Physicians:Ordering: Purdy e, Renate AAttending: ABRAHAM, JOCELYNConsulting: ABRAHAM, JOCELYNCopy To: Abraham, Renate ID Date Data Source [id number] 08/22/2020 12:59:00 PM EDT [facility] ([facility]) Name Value Range Interpretation Code Description Data [facility] rce(s) Supporting Document(s) VITAMIN-D(25HYDROXY) 71 NG/ML VITAMIN-D(25HYD ANUM) [facility] Note: VITAM IN-D(25HYDROXY) Deficiency: <=20 ng/ml Insufficiency: 21-29 ng/ml Preferred level: => 30 ng/mlResponsible Observer: (LBS) ID Date Data Source [id number] 08/22/2020 12:59:00 PM EDT [facility] ([facility]) Name Value Range Interpretation Code Description Data Moni rce(s) Supporting Document(s) Reported Physicians See Note Reported [facility] ([facility]) Note: Reported Physicians:Ordering: Purdy e, Renate AAttending: ABRAHAM, JOCELYNConsulting: ABRAHAM, JOCELYNCopy To: Abraham, Renate ID Date Data Source [id number] 08/22/2020 12:59:00 PM EDT [facility] ([facility]) Name Value Range Interpretation Code Description Data Moni rce(s) Supporting Document(s) CREAT UR 157.9 MG/DL Above high normal CREAT UR [facility]EL[facility] ([facility]) Note: Responsible Observer: (LBS) MA/CREAT RATIO 20.14 MCG/MG MA/CREAT RATIO DEMIAN LITTLE ([facility]) Note: The [place] [employer] ion states that Microalbuminemia is present if the Microalbumin/Creatinine ratio exceeds 30 mcg/mg. The threshold for Clinical Albuminuria is reached at 300 mcg/mg. The classification of a patient should be based upon at least 2 or 3 abnormal results on specimens collected within a 3 to 6 month timeframe.Responsible Observer: (LBS) MICROALBUMIN 31.80 MG/L Above high normal MICROALBUMIN GRE [facility]OR[facility] ([facility]) Note: Responsible Observer: (LBS) ID Date Data Source [id number] 08/22/2020 12:59:00 PM EDT [facility] ([facility]) Name Value Range Interpretation Code Description Data Moni rce(s) Supporting Document(s) Reported Physicians See Note Reported Physici ans [facility] ([facility]) Note: Reported Physicians:Ordering: Purdy e, Renate AAttending: DANIELLE ROSARIOCELYNConsulting: DANIELLE ROSARIOCELYNCopy To: Renate Rosario ID Date Data Source [id number] 08/22/2020 12:59:00 PM EDT [facility] ([facility]) Name Value Range Interpretation Code Description Data Moni rce(s) Supporting Document(s) TSH 0.80 uIU/mL TSH [facility] ([facility]) Note: Responsible Observer: (LBS) ID Date Data Source [id number] 08/22/2020 12:59:00 PM EDT [facility] ([facility]) Name Value Range Interpretation Code Description Data Moni rce(s) Supporting Document(s) Reported Physicians See Note Reported Physici ans [facility] ([facility]) Note: Reported Physicians:Ordering: Purdy e, Renate AAttending: ABRAHAM, JOCELYNConsulting: ABRAHAM, JOCELYNCopy To: Abraham, Renate ID Date Data Source [id number] 08/22/2020 12:59:00 PM EDT [facility] ([facility]) Name Value Range Interpretation Code Description Data Moni rce(s) Supporting Document(s) Triiodothyronine (T3),Free 2.7 pg/mL Triiodoth yronine (T3),Free [facility] ([facility]) Note: Responsible Observer: (rfl) ID Date Data Source [id number] 08/22/2020 12:59:00 PM EDT [facility] ([facility]) Name Value Range Interpretation Code Description Data Moni rce(s) Supporting Document(s) Reported Physicians See Note Reported Physici ans [facility] ([facility]) Note: Reported Physicians:Ordering: Purdy e, Renate AAttending: ABRAHAM, JOCELYNConsulting: ABRAHAM, JOCELYNCopy To: Abraham Ernate ID Date Data Source [id number] 08/22/2020 12:59:00 PM EDT [facility] ([facility]) Name Value Range Interpretation Code Description Data Moni rce(s) Supporting Document(s) A/G RATIO 1.2 A/G RATIO [facility] ([facility]) Note: Responsible Observer: (LBS) AFR AMER GFR >60 AFR AMER GFR [facility] ([facility]) Note: Male GFR Interprentation 20- 49 yrs >60 mL/min Normal 50-59 yrs >56 mL/min Normal 60-69 yrs >49 mL/min Normal 70- 79yrs >42 mL/min Normal 80 and above >35 mL/min Normal Female GFR Interpretation 20-39 yrs >60 mL/min Normal 40-49 yrs >58 mL/min Normal 50-59 yrs >51 mL/min Normal 60-69 yrs >45 mL/min Normal 70-79 yrs >39 mL/min Normal 80 and above >32 mL/min NormalResponsible Observer: (LBS) Egg donor age 69 yrs AGE [facility] ([facility]) Note: Responsible Observer: (LBS) Albumin [Mass/volume] in Blood by Bromocresol purple ( BCP) dye binding method 4.2 G/DL ALBUMIN [facility] ([facility]) Note: Responsible Observer: (LBS) ALKALINE PHOS 105 U/L ALKALINE PHOS [facility] ([facility]) Note: Responsible Observer: (LBS) Anion gap in Body fluid 12.0 mmol/L ANION GAP [facility] ([facility]) Note: Responsible Observer: (LBS) BUN 15 MG/DL BUN [facility] ([facility]) Note: Responsible Observer: (LBS) BUN/CREAT 50 Above high normal BUN/CREAT [facility] ([facility]) Note: Responsible Observer: (LBS) Calcium [Moles/volume] in Urine collected for unspecified durati on 10.2 MG/DL CALCIUM [facility] ([facility]) Note: Responsible Observer: (LBS) Chloride [Moles/volume] in Serum, Plasma or Blood 92 mEq/L Below low normal CHLORIDE [facility] ([facility]) Note: Responsible Observer: (LBS) CO2 32 MEQ/L Above high normal CO2 [facility] ([facility]) Note: Responsible Observer: (LBS) COMPREHENSIVE METABOLIC PANEL See Note COMPRE HENSIVE METABOLIC PANEL [facility] ([facility]) Note: COMPREHENSIVE METABOLIC PANELR esponsible Observer: (LBS) Creatinine [Moles/volume] in Vitreous fluid <0.4 MG/DL Below low normal CREATININE [facility]) Note: Responsible Observer: (LBS) Glucose [Mass/volume] in Urine collected for unspecified duration 9 3 MG/DL GLUCOSE [facility] ([facility]) Note: Responsible Observer: (LBS) Globulin [Mass/time] in 24 hour Urine 3.6 GM/DL Above hig h normal GLOBULIN [facility] ([facility]) Note: Responsible Observer: (LBS) NON-AA GFR >60 mL/min NON-AA GFR [facility] ([facility]) Note: Responsible Observer: (LBS) Potassium [Mass/volume] in Blood 4.1 mEq/L POT ASSIUM [facility] ([facility]) Note: Responsible Observer: (LBS) SGOT/AST 28 U/L SGOT/AST [facility] ([facility]) Note: Responsible Observer: (LBS) SGPT/ALT 18 U/L SGPT/ALT [facility] ([facility]) Note: Responsible Observer: (LBS) Sodium [Moles/volume] in Serum, Plasma or Blood 136 mEq/L SODIUM [facility] ([facility]) Note: Responsible Observer: (LBS) TOTAL BILI <0.7 MG/DL TOTAL BILI [facility] ([facility]) Note: Responsible Observer: (LBS) TOTAL PROTEIN 7.8 G/DL TOTAL PROTEIN [facility] ([facility]) Note: Responsible Observer: (LBS) ID Date Data Source [id number] 08/22/2020 12:59:00 PM EDT [facility] ([facility]) Name Value Range Interpretation Code Description Data Moni rce(s) Supporting Document(s) Reported Physicians See Note Reported Physici ans [facility] ([facility]) Note: Reported Physicians:Ordering: Renate Starr AAttending: RENATE ROSARIOConsulting: Gwen ROSARIO To: Renate Rosario ID Date Data Source [id number] 08/22/2020 12:59:00 PM EDT [facility] ([facility]) Name Value Range Interpretation Code Description Data Moni rce(s) Supporting Document(s) CBC NO DIFF See Note CBC NO DIFF [facility] ([facility]) Note: COMPLETE BLOOD COUNTResponsibl e Observer: (MLE) Hematocrit [Pure volume fraction] of Blood by Automated count 37.8 % HEMATOCRIT [facility] ([facility]) Note: Responsible Observer: (MLE) Hemoglobin [Mass/volume] in Mixed venous blood by Oximetry 12.0 g/d L HEMOGLOBIN [facility] ([facility]) Note: Responsible Observer: (MLE) MCH 34.3 pg Above high normal MCH [facility] ([facility]) Note: Responsible Observer: (MLE) MCV 108.0 fL Above high normal MCV [facility] ([facility]) Note: Responsible Observer: (MLE) MCHC 31.7 g/dL MCHC [facility] ([facility]) Note: Responsible Observer: (MLE) MPV 9.4 fL MPV [facility] ([facility]) Note: Responsible Observer: (MLE) Platelets [#/area] in Blood by Microscopy high power field 522 1 0\\^3/uL Above high normal PLATELETS [facility] ([facility]) Note: Responsible Observer: (MLE) RBC 3.50 10\\^6/uL Below low normal RBC [facility] ([facility]) Note: Responsible Observer: (MLE) RDW 13.7 % RDW [facility] ([facility]) Note: Responsible Observer: (MLE) WBC 6.9 10\\^3/uL WBC [facility] ([facility]) Note: Responsible Observer: (MLE) ID Date Data Source [id number] 08/22/2020 12:59:00 PM EDT [facility] ([facility]) Name Value Range Interpretation Code Description Data Moni rce(s) Supporting Document(s) Reported Physicians See Note Reported Physici ans [facility] ([facility]) Note: Reported Physicians:Ordering: Renate Starr AAttending: RENATE ROSARIOConsulting: RENATE ROSARIOCopnayely To: Renate Rosario ID Date Data Source [id number] 08/24/2020 02:33:00 PM EDT [facility] Name Value Range Interpretation Code Description Data Moni rce(s) Supporting Document(s) Triiodothyronine (T3) Free [Mass/volume] in Serum or Plasma 2.7 pg/ mL 2.0-4.4 [facility] ID Date Data Source [id number] 08/23/2020 08:37:00 AM EDT [facility] Name Value Range Interpretation Code Description Data Moni rce(s) Supporting Document(s) Calcidiol [Moles/volume] in Serum or Plasma 71 NG/ML [facility] VITAMIN-D(2 5HYDROXY) Deficiency: <=20 ng/ml Insufficiency: 21-29 ng/ml Preferred level: => 30 ng/ml ID Date Data Source [id number] 08/22/2020 02:11:00 PM EDT [facility] Name Value Range Interpretation Code Description Data Moni rce(s) Supporting Document(s) CBC NO DIFF [facility] ital COMPLETE BLOOD COUNT Leukocytes [#/volume] in Blood by Automated count 6.9 10^3/uL 4.2 - 1 1.0 [facility] Erythrocytes [#/volume] in Blood by Automated count 3.50 10^6/uL 4. 20 - 5.40 L [facility] Hemoglobin [Mass/volume] in Blood 12.0 g/dL 12.0 - 16.0 [facility] Hematocrit [Volume Fraction] of Blood by Automated count 37.8 % 3 7.0 - 47.0 [facility] Erythrocyte mean corpuscular volume [Entitic volume] b y Automated count 108.0 fL 81.0 - 101 H [facility] Erythrocyte mean corpuscular hemoglobin [Entitic mass] by Automated count 34.3 pg 27.0 - 34.0 H [facility] Erythrocyte mean corpuscular hemoglobin concentration [Mass/volume] by Automated count 31.7 g/dL 31.0 - 36.0 [facility] Erythrocyte distribution width [Ratio] by Automated count 13.7 % 11.5 - 14.5 [facility] Platelets [#/volume] in Blood by Automated count 522 10^3/uL 150 - 45 0 H [facility] Platelet mean volume [Entitic volume] in Blood by Automated count 9.4 fL 7.4 - 10.4 [facility] ID Date Data Source [id number] 08/22/2020 02:08:00 PM EDT [facility] Name Value Range Interpretation Code Description Data Moni rce(s) Supporting Document(s) COMPREHENSIVE METABOLIC PANEL [facility] COMPREHENSIVE METABOLIC PANEL Sodium [Moles/volume] in Serum or Plasma 136 mEq/L 134 - 153 [facility] Potassium [Moles/volume] in Serum or Plasma 4.1 mEq/L 3.6 - 5.0 [facility] Chloride [Moles/volume] in Serum or Plasma 92 mEq/L 98 - 107 L [facility] Carbon dioxide, total [Moles/volume] in Serum or Plasma 32 MEQ/L 22 - 30 H [facility] Glucose [Mass/volume] in Serum or Plasma 93 MG/DL 70 - 99 [facility] BUN 15 MG/DL 7 - 21 [facility] Creatinine [Mass/volume] in Serum or Plasma <0.4 MG/DL 0.7 - 1.5 L [facility] BUN/CREAT 50 8 - 27 H [facility] Protein [Mass/volume] in Serum or Plasma 7.8 G/DL 6.3 - 8.2 [facility] Albumin [Mass/volume] in Serum or Plasma 4.2 G/DL 3.9 - 5.0 [facility] Globulin [Mass/volume] in Serum by calculation 3.6 GM/DL 2.4 - 3.2 H [facility] A/G RATIO 1.2 0.8 - 2.0 [facility] Calcium [Mass/volume] in Serum or Plasma 10.2 MG/DL 8.4 - 10.2 [facility] Bilirubin.total [Mass/volume] in Serum or Plasma <0.7 MG/DL 0.2 - 1.3 [facility] Alkaline phosphatase [Enzymatic activity/volume] in Serum or Plasma 105 U/L 38 - 126 [facility] Aspartate aminotransferase [Enzymatic activity/volume] in Serum or Plasma 28 U/L 5 - 40 [facility] Alanine aminotransferase [Enzymatic activity/volume] in Seru m or Plasma 18 U/L 7 - 56 [facility] Anion gap 3 in Serum or Plasma 12.0 mmol/L 8.0 - 16.0 [facility] AGE 69 yrs [facility] al NON-AA GFR >60 mL/min [facility] ital AFR AMER GFR >60 [facility] Male GFR In terprentation 20-49 yrs >60 mL/min Normal 50-59 yrs >56 mL/min Normal 60-69 yrs >49 mL/min Normal 70-79yrs >42 mL/min Normal 80 and above >35 mL/min Normal Female GFR Interpretation 20-39 yrs >60 mL/min Normal 40-49 yrs >58 mL/min Normal 50-59 yrs >51 mL/min Normal 60-69 yrs >45 mL/min Normal 70-79 yrs >39 mL/min Normal 80 and above >32 mL/min Normal ID Date Data Source [id number] 08/22/2020 02:04:00 PM EDT [facility] Name Value Range Interpretation Code Description Data Moni rce(s) Supporting Document(s) Thyrotropin [Units/volume] in Serum or Plasma by Detec tion limit <= 0.05 mIU/L 0.80 uIU/mL 0.47 - 5.01 [facility] ID Date Data Source [id number] 08/22/2020 02:03:00 PM EDT [facility] Name Value Range Interpretation Code Description Data Moni rce(s) Supporting Document(s) Thyroxine (T4) free index in Serum or Plasma by calculation 1.40 NG/DL 0.93 - 1.70 [facility] ID Date Data Source [id number] 08/22/2020 01:40:00 PM T [facility] Name Value Range Interpretation Code Description Data Moni rce(s) Supporting Document(s) CREAT UR 157.9 MG/DL 0.0 - 30.0 H [facility] pital MICROALBUMIN 31.80 MG/L 0.00 - 0.00 H [facility] MA/CREAT RATIO 20.14 MCG/MG 0.01 - 30.00 [facility] [employer] st ates that Microalbuminemia is present if the Microalbumin/Creatinine ratio exceeds 30 mcg/mg. The threshold for Clinical Albuminuria is reached at 300 mcg/mg. The classification of a patient should be based upon at least 2 or 3 abnormal results on specimens collected within a 3 to 6 month timeframe. ID Date Data Source [id number] 06/14/2020 07:11:00 AM [employer] ([facility]) Name Value Range Interpretation Code Description Data Moni rce(s) Supporting Document(s) Reported Physicians See Note Reported [facility] ([facility]) Note: Reported Physicians:Ordering: Renate Starr AAttending: RENATE ROSARIOConsulting: DANIELLE ROSARIOCELYNCopy To: Renate Rosario ID Date Data Source [id number] 06/14/2020 07:11:00 AM [employer] ([facility]) Name Value Range Interpretation Code Description Data Moni rce(s) Supporting Document(s) Egg donor age 69 yrs AGE [facility] ([facility]) Note: Responsible Observer: (TAD) AFR AMER GFR >60 AFR AMER GFR [facility] ([facility]) Note: Responsible Observer: (TAD) Anion gap in Body fluid 8.0 mmol/L [facility] Note: Responsible Observer: (TAD) Basic metabolic panel - Blood See Note BASIC METABOLIC PANEL [facility] ([facility]) Note: BASIC METABOLIC PANELResponsib le Observer: (TAD) BUN 15 MG/DL BUN [facility] ([facility]) Note: Responsible Observer: (TAD) Calcium [Moles/volume] in Urine collected for unspecified durati on 9.1 MG/DL CALCIUM [facility] ([facility]) Note: Responsible Observer: (TAD) BUN/CREAT 38 Above high normal BUN/CREAT [facility] ([facility]) Note: Responsible Observer: (TAD) Chloride [Moles/volume] in Serum, Plasma or Blood 100 mEq/L CHLORIDE [facility] ([facility]) Note: Responsible Observer: (TAD) CO2 33 MEQ/L Above high normal CO2 [facility] ([facility]) Note: Responsible Observer: (TAD) Glucose [Mass/volume] in Urine collected for unspecified duration 9 4 MG/DL GLUCOSE [facility] ([facility]) Note: Responsible Observer: (TAD) Creatinine [Moles/volume] in Vitreous fluid 0.4 MG/DL Below low normal CREATININE [facility] ([facility]) Note: Responsible Observer: (TAD) NON-AA GFR >60 mL/min NON-AA GFR [facility] ([facility]) Note: Male GFR Interprentation 20-49 yrs >60 mL/min Normal 50-59 yrs >56 mL/min Normal 60-69 yrs >49 mL/min Normal 70-79yrs >42 mL/min Normal 80 and above >35 mL/min Normal Female GFR Interpretation 20-39 yrs >60 mL/min Normal 40-49 yrs >58 mL/min Normal 50- 59 yrs >51 mL/min Normal 60-69 yrs >45 mL/min Normal 70-79 yrs >39 mL/min Normal 80 and above >32 mL/min NormalResponsible Observer: (TAD) Potassium [Mass/volume] in Blood 4.3 mEq/L POT ASSIUM [facility] ([facility]) Note: Responsible Observer: (TAD) Sodium [Moles/volume] in Serum, Plasma or Blood 141 mEq/L SODIUM [facility] ([facility]) Note: Responsible Observer: (TAD) ID Date Data Source [id number] 06/14/2020 07:11:00 AM EST [facility] ([facility]) Name Value Range Interpretation Code Description Data Moni rce(s) Supporting Document(s) Reported Physicians See Note Reported Physic ans [facility] ([facility]) Note: Reported Physicians:Ordering: Purdy e, Renate AAttending: ABRAHAM, JOCELYNConsulting: ABRAHAM, JOCELYNCopy To: Abraham, Renate ID Date Data Source [id number] 06/14/2020 07:11:00 AM EST [facility] ([facility]) Name Value Range Interpretation Code Description Data Moni rce(s) Supporting Document(s) TSH 0.97 uIU/mL TSH [facility] ([facility]) Note: Responsible Observer: (TAD) ID Date Data Source [id number] 06/14/2020 07:11:00 AM EST [facility] ([facility]) Name Value Range Interpretation Code Description Data Moni rce(s) Supporting Document(s) Reported Physicians See Note Reported Physic ans [facility] ([facility]) Note: Reported Physicians:Ordering: Purdy e, Renate AAttending: ABRAHAM, JOCELYNConsulting: ABRAHAM, JOCELYNCopy To: Abraham, Renate ID Date Data Source [id number] 06/14/2020 07:11:00 AM EST [facility] ([facility]) Name Value Range Interpretation Code Description Data Moni rce(s) Supporting Document(s) Albumin [Mass/volume] in Blood by Bromocresol purple ( BCP) dye binding method 4.3 G/DL ALBUMIN [facility] ([facility]) Note: Responsible Observer: (TAD) ID Date Data Source [id number] 06/14/2020 07:11:00 AM EST [facility] ([facility]) Name Value Range Interpretation Code Description Data Moni rce(s) Supporting Document(s) Reported Physicians See Note Reported [facility] ([facility]) Note: Reported Physicians:Ordering: Purdy e, Renate AAttending: ABRAHAM, JOCELYNConsulting: ABRAHAM, JOCELYNCopy To: Abraham, Renate ID Date Data Source [id number] 06/14/2020 07:11:00 AM EST [facility] ([facility]) Name Value Range Interpretation Code Description Data Moni rce(s) Supporting Document(s) VITAMIN-D(25HYDROXY) 59 NG/ML VITAMIN-D(25HYD ANUM) [facility] ([facility]) Note: VITAM IN-D(25HYDROXY) Deficiency: <=20 ng/ml Insufficiency: 21-29 ng/ml Preferred level: => 30 ng/mlResponsible Observer: () ID Date Data Source [id number] 06/14/2020 07:11:00 AM EST [facility] ([facility]) Name Value Range Interpretation Code Description Data Moni rce(s) Supporting Document(s) Reported Physicians See Note Reported [facility] ([facility]) Note: Reported Physicians:Ordering: Purdy e, Renate AAttending: ABRAHAM, JOCELYNConsulting: ABRAHAM, JOCELYNCopy To: Abraham, Renate ID Date Data Source [id number] 06/14/2020 07:11:00 AM EST [facility] ([facility]) Name Value Range Interpretation Code Description Data Moni rce(s) Supporting Document(s) Triiodothyronine (T3),Free 2.8 pg/mL Triiodoth yronine (T3),Free [facility] ([facility]) Note: Responsible Observer: (bill) ID Date Data Source [id number] 06/14/2020 07:11:00 AM EST [facility] ([facility]) Name Value Range Interpretation Code Description Data Moni rce(s) Supporting Document(s) Reported Physicians See Note Reported [facility] ([facility]) Note: Reported Physicians:Ordering: Purdy e, Renate AAttending: ABRAHAM JOCELYNConsulting: DANIELLE ROSARIOCELYNCopy To: Renate Rosario ID Date Data Source [id number] 06/14/2020 07:11:00 AM EST [facility] ([facility]) Name Value Range Interpretation Code Description Data Moni rce(s) Supporting Document(s) Cholesterol [Moles/volume] in Pericardial fluid 185 MG/DL CHOLESTEROL [facility] ([facility]) Note: Responsible Observer: (TAD) CVE PANEL See Note CVE PANEL [facility] ([facility]) Note: LIPID PANELResponsible Observe r: (TAD) Cholesterol in LDL [Mass/volume] in Serum or Plasma by Direct as say 112 mg/dL LDL [facility] ([facility]) Note: Responsible Observer: (TAD) HDL 63 MG/DL HDL [facility] ([facility]) Note: Responsible Observer: (TAD) RISK FACTOR 2.9 Below low normal RISK FACTOR [facility] ([facility]) Note: Responsible Observer: (TAD) LDL/HDL 1.78 LDL/HDL [facility] ([facility]) Note: CVE RISK CHOL/HD L LDL/HDLMEN: 1/2 AVERAGE 3.43 1.00 AVERAGE 4.97 3.55 2X AVERAGE 9.55 6.25 3X AVERAGE 23.99 7.99WOMEN: 1/2 AVERAGE 3.27 1.47 AVERAGE 4.44 3.22 2X AVERAGE 7.05 5.03 3X AVERAGE 11.04 6.14Responsible Observer: (TAD) TRIGLYCERIDES 109 MG/DL TRIGLYCERIDES [facility] ([facility]) Note: Responsible Observer: (TAD) ID Date Data Source [id number] 06/14/2020 07:11:00 AM EST [facility] ([facility]) Name Value Range Interpretation Code Description Data Moni rce(s) Supporting Document(s) Reported Physicians See Note Reported Physici ans [facility] ([facility]) Note: Reported Physicians:Ordering: Purdy e, Renate AAttending: DANIELLE ROSARIOCELYNConsulting: ABRAHAM, JOCELYNCopy To: Danielle Rosariocelyn ID Date Data Source [id number] 06/14/2020 07:11:00 AM [facility] ([facility]) Name Value Range Interpretation Code Description Data Moni rce(s) Supporting Document(s) T4 FREE 1.21 NG/DL T4 FREE [facility] ([facility]) Note: Responsible Observer: (TAD) ID Date Data Source [id number] 06/14/2020 07:11:00 AM EST [facility] ([facility]) Name Value Range Interpretation Code Description Data Moni rce(s) Supporting Document(s) Reported Physicians See Note Reported Physici ans [facility] ([facility]) Note: Reported Physicians:Ordering: Renate Starr AAttending: DANIELLE ROSARIOCELYNConsulting: ABRAHAM JOCELYNCopy To: Renate Rosario ID Date Data Source [id number] 06/14/2020 07:11:00 AM [facility] ([facility]) Name Value Range Interpretation Code Description Data Moni rce(s) Supporting Document(s) URIC ACID 3.3 MG/DL URIC ACID [facility] ([facility]) Note: Responsible Observer: (TAD) ID Date Data Source [id number] 06/16/2020 05:48:00 PM [facility] Value Range Interpretation Code Description Data Moni rce(s) Supporting Document(s) Calcidiol [Moles/volume] in Serum or Plasma 59 NG/ML [facility] VITAMIN-D(2 5HYDROXY) Deficiency: <=20 ng/ml Insufficiency: 21-29 ng/ml Preferred level: => 30 ng/ml ID Date Data Source [id number] 06/16/2020 04:03:00 PM [facility] Name Value Range Interpretation Code Description Data Moni rce(s) Supporting Document(s) Triiodothyronine (T3) Free [Mass/volume] in Serum or Plasma 2.8 pg/ mL 2.0-4.4 [facility] ID Date Data Source [id number] 06/14/2020 08:42:00 AM [facility] Name Value Range Interpretation Code Description Data Moni rce(s) Supporting Document(s) Thyrotropin [Units/volume] in Serum or Plasma by Detec tion limit <= 0.05 mIU/L 0.97 uIU/mL 0.47 - 5.01 [facility] ID Date Data Source [id number] 06/14/2020 08:42:00 AM EST [facility] Name Value Range Interpretation Code Description Data Moni rce(s) Supporting Document(s) Thyroxine (T4) free index in Serum or Plasma by calculation 1.21 NG/DL 0.93 - 1.70 [facility] ID Date Data Source [id number] 06/14/2020 08:31:00 AM [facility] Name Value Range Interpretation Code Description Data Moni [facility](s) Supporting Document(s) BASIC METABOLIC PANEL [facility] BASIC METABOLIC PANEL Sodium [Moles/volume] in Serum or Plasma 141 mEq/L 134 - 153 [facility] Potassium [Moles/volume] in Serum or Plasma 4.3 mEq/L 3.6 - 5.0 [facility] Chloride [Moles/volume] in Serum or Plasma 100 mEq/L 98 - 107 [facility] Carbon dioxide, total [Moles/volume] in Serum or Plasma 33 MEQ/L 22 - 30 H [facility] Glucose [Mass/volume] in Serum or Plasma 94 MG/DL 70 - 99 [facility] BUN 15 MG/DL 7 - 21 [facility] Creatinine [Mass/volume] in Serum or Plasma 0.4 MG/DL 0.7 - 1.5 L [facility] BUN/CREAT 38 8 - 27 H [facility] Calcium [Mass/volume] in Serum or Plasma 9.1 MG/DL 8.4 - 10.2 [facility] Anion gap 3 in Serum or Plasma 8.0 mmol/L 8.0 - 16.0 [facility] 69 [facility] >60 [facility] NON-AA GFR >60 mL/min [facility] ital Male GFR Inter prentation 20-49 yrs >60 mL/min Normal 50-59 yrs >56 mL/min Normal 60-69 yrs >49 mL/min Normal 70-79yrs >42 mL/min Normal 80 and above >35 mL/min Normal Female GFR Interpretation 20-39 yrs >60 mL/min Normal 40-49 yrs >58 mL/min Normal 50-59 yrs >51 mL/min Normal 60-69 yrs >45 mL/min Normal 70-79 yrs >39 mL/min Normal 80 and above >32 mL/min Normal ID Date Data Source [id number] 06/14/2020 08:31:00 AM [facility] Name Value Range Interpretation Code Description Data Moni rce(s) Supporting Document(s) CVE PANEL [facility] al LIPID PANEL Cholesterol [Mass/volume] in Serum or Plasma 185 MG/DL 131 - 200 [facility] Deprecated Triglyceride [Mass/volume] in Serum or Plasma 109 MG/DL 3 5 - 160 [facility] HDL 63 MG/DL 29 - 86 [facility] Cholesterol in LDL [Mass/volume] in Serum or Plasma by Direc t assay 112 mg/dL 65 - 175 [facility] Cholesterol.total/Cholesterol in HDL [Mass Ratio] in Serum o r Plasma 2.9 3.2 - 4.4 L [facility] LDL/HDL 1.78 1.47 - 3.22 [facility] ital CVE RISK CHOL/HDL LDL/HDLMEN: 1/2 AVERAGE 3.43 1.00 AVERAGE 4.97 3.55 2X AVERAGE 9.55 6.25 3X AVERAGE 23.99 7.99WOMEN: 1/2 AVERAGE 3.27 1.47 AVERAGE 4.44 3.22 2X AVERAGE 7.05 5.03 3X AVERAGE 11.04 6.14 ID Date Data Source [id number] 06/14/2020 08:31:00 AM [facility] Value Range Interpretation Code Description Data Moni rce(s) Supporting Document(s) Albumin [Mass/volume] in Serum or Plasma 4.3 G/DL 3.9 - 5.0 [facility] ID Date Data Source [id number] 06/14/2020 08:31:00 AM [facility] Value Range Interpretation Code Description Data Moni rce(s) Supporting Document(s) Urate [Mass/volume] in Serum or Plasma 3.3 MG/DL 2.5 - 8.5 [facility] ID Date Data Source [id number] 03/22/2020 12:27:00 PM EST [facility] ([facility]) Name Value Range Interpretation Code Description Data Moni rce(s) Supporting Document(s) Reported Physicians See Note Reported [facility] ([facility]) Note: Reported Physicians:Ordering: Purdy e, Renate AAttending: ABRAHAM, JOCELYNConsulting: ABRAHAM, JOCELYNCopy To: Abraham Renate ID Date Data Source [id number] 03/22/2020 12:27:00 PM EST [facility] ([facility]) Name Value Range Interpretation Code Description Data Moni rce(s) Supporting Document(s) T4 FREE 1.42 NG/DL T4 [facility] ([facility]) Note: Responsible Observer: (CLD) ID Date Data Source [id number] 03/22/2020 12:27:00 PM EST [facility] ([facility]) Name Value Range Interpretation Code Description Data Moni rce(s) Supporting Document(s) Reported Physicians See Note Reported [facility] ([facility]) Note: Reported Physicians:Ordering: Gurwinder alexander Renate AAttending: ABRAHAM JOCELYNConsulting: ABRAHAM JOCELYNCopy To: Abraham Renate ID Date Data Source [id number] 03/22/2020 12:27:00 PM EST [facility] ([facility]) Name Value Range Interpretation Code Description Data Moni rce(s) Supporting Document(s) Triiodothyronine (T3),Free 3.1 pg/mL Triiodoth yronine (T3),[facility] ([facility]) Note: Responsible Observer: (rfl) ID Date Data Source [id number] 03/22/2020 12:27:00 PM EST [facility] ([facility]) Name Value Range Interpretation Code Description Data Moni rce(s) Supporting Document(s) Reported Physicians See Note Reported [facility] ([facility]) Note: Reported Physicians:Ordering: Purdy e, Renate AAttending: ABRAHAM JOCELYNConsulting: ABRAHAM, JOCELYNCopy To: Abraham Renate ID Date Data Source [id number] 03/22/2020 12:27:00 PM [facility] ([facility]) Name Value Range Interpretation Code Description Data Moni rce(s) Supporting Document(s) TSH 0.43 uIU/mL Below low normal TSH [facility] ([facility]) Note: Responsible Observer: (KIKE) ID Date Data Source [id number] 03/23/2020 08:59:00 PM [facility] Name Value Range Interpretation Code Description Data Moni rce(s) Supporting Document(s) Triiodothyronine (T3) Free [Mass/volume] in Serum or Plasma 3.1 pg/ mL 2.0-4.4 [facility] ID Date Data Source [id number] 03/22/2020 01:26:00 PM [facility] Value Range Interpretation Code Description Data Moni rce(s) Supporting Document(s) Thyroxine (T4) free index in Serum or Plasma by calculation 1.42 NG/DL 0.93 - 1.70 [facility] ID Date Data Source [id number] 03/22/2020 01:26:00 PM [facility] Value Range Interpretation Code Description Data Moni rce(s) Supporting Document(s) Thyrotropin [Units/volume] in Serum or Plasma by Detec tion limit <= 0.05 mIU/L 0.43 uIU/mL 0.47 - 5.01 L [facility] ID Date Data Source [id number] 01/16/2020 07:19:00 AM ED [facility] ([facility]) Name Value Range Interpretation Code Description Data Moni rce(s) Supporting Document(s) Reported Physicians See Note Reported Physici ans [facility] ([facility]) Note: Reported Physicians:Ordering: Renate Starr AAttending: ABRAHAM, JOCELYNConsulting: ABRAHAM, JOCELYNCopy To: Abraham Renate ID Date Data Source [id number] 01/16/2020 07:19:00 AM ED [facility] ([facility]) Name Value Range Interpretation Code Description Data Moni rce(s) Supporting Document(s) FOLIC ACID 15.3 NG/ML FOLIC ACID [facility] ([facility]) Note: Responsible Observer: (CLD) ID Date Data Source [id number] 01/16/2020 07:19:00 AM EDT [facility] ([facility]) Name Value Range Interpretation Code Description Data Moni rce(s) Supporting Document(s) Reported Physicians See Note Reported Physici ans [facility] ([facility]) Note: Reported Physicians:Ordering: Purdy e, Renate AAttending: ABRAHAM, JOCELYNConsulting: ABRAHAM, JOCELYNCopy To: Abraham, Renate ID Date Data Source [id number] 01/16/2020 07:19:00 AM EDT [facility] ([facility]) Name Value Range Interpretation Code Description Data Moni rce(s) Supporting Document(s) T4 FREE 0.90 NG/DL Below low normal T4 FREE [facility] ([facility]) Note: Responsible Observer: (CLD) ID Date Data Source [id number] 01/16/2020 07:19:00 AM EDT [facility] ([facility]) Name Value Range Interpretation Code Description Data Moni rce(s) Supporting Document(s) Reported Physicians See Note Reported Physic ans [facility] ([facility]) Note: Reported Physicians:Ordering: Purdy e, Renate AAttending: ABRAHAM, JOCELYNConsulting: ABRAHAM, JOCELYNCopy To: Abraham, Renate ID Date Data Source [id number] 01/16/2020 07:19:00 AM EDT [facility] ([facility]) Name Value Range Interpretation Code Description Data Moni rce(s) Supporting Document(s) ALKALINE PHOS 59 U/L ALKALINE PHOS [facility] ([facility]) Note: Responsible Observer: (CLD) DIRECT BILI <0.2 MG/DL DIRECT BILI [facility] ([facility] [place]) Note: Responsible Observer: (CLD) Albumin [Mass/volume] in Blood by Bromocresol purple ( BCP) dye binding method 4.6 G/DL ALBUMIN [facility] ([facility]) Note: Responsible Observer: (CLD) INDIRECT BILI 0.3 MG/DL INDIRECT BILI [facility] ([facility]) Note: Responsible Observer: (CLD) Globulin [Mass/time] in 24 hour Urine 3.1 GM/DL GLOBULIN [facility] ([facility]) Note: Responsible Observer: (CLD) SGOT/AST 22 U/L SGOT/AST [facility] ([facility]) Note: Responsible Observer: (CLD) TOTAL PROTEIN 7.7 G/DL TOTAL PROTEIN [facility] ([facility]) Note: Responsible Observer: (CLD) TOTAL BILI <0.7 MG/DL TOTAL BILI [facility] ([facility]) Note: Responsible Observer: (CLD) SGPT/ALT 14 U/L SGPT/ALT [facility] ([facility]) Note: Responsible Observer: (CLD) ID Date Data Source [id number] 01/16/2020 07:19:00 AM EDT [facility] ([facility]) Name Value Range Interpretation Code Description Data Moni rce(s) Supporting Document(s) Reported Physicians See Note Reported Physici ans [facility] ([facility]) Note: Reported Physicians:Ordering: Purdy e, Renate AAttending: ABRAHAM, JOCELYNConsulting: ABRAHAM, JOCELYNCopy To: Abraham Renate ID Date Data Source [id number] 01/16/2020 07:19:00 AM EDT [facility] ([facility]) Name Value Range Interpretation Code Description Data Moni rce(s) Supporting Document(s) CPK 154 U/L CPK [facility] ([facility]) Note: Responsible Observer: (CLD) ID Date Data Source [id number] 01/16/2020 07:19:00 AM EDT [facility] ([facility]) Name Value Range Interpretation Code Description Data Moni rce(s) Supporting Document(s) Reported Physicians See Note Reported Physici ans [facility] ([facility]) Note: Reported Physicians:Ordering: Purdy e, Renate AAttending: ABRAHAM, JOCELYNConsulting: ABRAHAM, JOCELYNCopy To: Abraham, Renate ID Date Data Source [id number] 01/16/2020 07:19:00 AM EDT KAREN ([facility]) Name Value Range Interpretation Code Description Data Moni rce(s) Supporting Document(s) Triiodothyronine (T3),Free 2.2 pg/mL Triiodoth yronine (T3),Free KAREN ([facility]) Note: Responsible Observer: (rfl) ID Date Data Source [id number] 01/16/2020 07:19:00 AM EDT KAREN ([facility]) Name Value Range Interpretation Code Description Data Moni rce(s) Supporting Document(s) Reported Physicians See Note Reported Physici ans [facility] ([facility]) Note: Reported Physicians:Ordering: Purdy e, Renate AAttending: ABRAHAM, JOCELYNConsulting: ABRAHAM, JOCELYNCopy To: Abraham, Renate ID Date Data Source [id number] 01/16/2020 07:19:00 AM EDT [facility] ([facility]) Name Value Range Interpretation Code Description Data Moni rce(s) Supporting Document(s) TSH 15.00 uIU/mL Above high normal TSH [facility] ([facility]) Note: Responsible Observer: (CLD) ID Date Data Source [id number] 01/16/2020 07:19:00 AM EDT KAREN ([facility]) Name Value Range Interpretation Code Description Data Moni rce(s) Supporting Document(s) Reported Physicians See Note Reported Physici ans [facility] ([facility]) Note: Reported Physicians:Ordering: Purdy e, Renate AAttending: ABRAHAM, JOCELYNConsulting: ABRAHAM, JOCELYNCopy To: Abraham, Renate ID Date Data Source [id number] 01/16/2020 07:19:00 AM EDT KAREN ([facility]) Name Value Range Interpretation Code Description Data Moni rce(s) Supporting Document(s) VITAMIN B12 775 PG/ML VITAMIN B12 [facility] ([facility]) Note: Responsible Observer: (CLD) ID Date Data Source [id number] 01/16/2020 07:19:00 AM EDT KAREN ([facility]) Name Value Range Interpretation Code Description Data Moni rce(s) Supporting Document(s) Reported Physicians See Note Reported Physici ans [facility] ([facility]) Note: Reported Physicians:Ordering: Renate Starr AAttending: RENATE ROSARIOConsulting: Gwen ROSARIO To: Renate Rosario ID Date Data Source [id number] 01/16/2020 07:19:00 AM EDT [facility] Name Value Range Interpretation Code Description Data Moni rce(s) Supporting Document(s) Cholesterol [Moles/volume] in Pericardial fluid 235 MG/DL Above high normal CHOLESTEROL [facility] ([facility]) Note: Responsible Observer: (CLD) CVE PANEL See Note CVE PANEL [facility] ([facility]) Note: LIPID PANELResponsible Observe r: (CLD) Cholesterol in LDL [Mass/volume] in Serum or Plasma by Direct as say 150 mg/dL LDL [facility] ([facility]) Note: Responsible Observer: (CLD) HDL 62 MG/DL HDL [facility] ([facility]) Note: Responsible Observer: (CLD) RISK FACTOR 3.8 RISK FACTOR [facility] ([facility]) Note: Responsible Observer: (CLD) TRIGLYCERIDES 129 MG/DL TRIGLYCERIDES [facility] ([facility]) Note: Responsible Observer: (CLD) LDL/HDL 2.42 LDL/HDL [facility] ([facility]) Note: CVE RISK CHOL/HD L LDL/HDLMEN: 1/2 AVERAGE 3.43 1.00 AVERAGE 4.97 3.55 2X AVERAGE 9.55 6.25 3X AVERAGE 23.99 7.99WOMEN: 1/2 AVERAGE 3.27 1.47 AVERAGE 4.44 3.22 2X AVERAGE 7.05 5.03 3X AVERAGE 11.04 6.14Responsible Observer: (CLD) ID Date Data Source [id number] 01/17/2020 11:32:00 AM EDT [facility] Name Value Range Interpretation Code Description Data Moni rce(s) Supporting Document(s) Triiodothyronine (T3) Free [Mass/volume] in Serum or Plasma 2.2 pg/ mL 2.0-4.4 [facility] ID Date Data Source [id number] 01/16/2020 08:28:00 AM EDT [facility] Name Value Range Interpretation Code Description Data Moni rce(s) Supporting Document(s) Thyrotropin [Units/volume] in Serum or Plasma by Detec tion limit <= 0.05 mIU/L 15.00 uIU/mL 0.47 - 5.01 H [facility] ID Date Data Source [id number] 01/16/2020 08:28:00 AM EDT [facility] Name Value Range Interpretation Code Description Data Moni rce(s) Supporting Document(s) Thyroxine (T4) free index in Serum or Plasma by calculation 0.90 NG/DL 0.93 - 1.70 L [facility] ID Date Data Source [id number] 01/16/2020 08:28:00 AM EDT [facility] Value Range Interpretation Code Description Data Moni rce(s) Supporting Document(s) Cobalamin (Vitamin B12) [Mass/volume] in Serum or Plasma 775 PG/ML 232 - 1245 [facility] ID Date Data Source [id number] 01/16/2020 08:28:00 AM EDT [facility] Value Range Interpretation Code Description Data Moni rce(s) Supporting Document(s) Folate [Mass/volume] in Serum or Plasma 15.3 NG/ML 5.6 - 45.8 [facility] ID Date Data Source [id number] 01/16/2020 08:18:00 AM EDT [facility] Value Range Interpretation Code Description Data Moni rce(s) Supporting Document(s) Protein [Mass/volume] in Serum or Plasma 7.7 G/DL 6.3 - 8.2 [facility] Albumin [Mass/volume] in Serum or Plasma 4.6 G/DL 3.9 - 5.0 [facility] Globulin [Mass/volume] in Serum by calculation 3.1 GM/DL 2.4 - 3.2 [facility] Bilirubin.total [Mass/volume] in Serum or Plasma <0.7 MG/DL 0.2 - 1.3 [facility] Bilirubin.direct [Mass/volume] in Serum or Plasma <0.2 MG/DL 0.1 - 0. 4 [facility] Bilirubin.indirect [Mass/volume] in Serum or Plasma 0.3 MG/DL 0.2 - 1.1 [facility] Aspartate aminotransferase [Enzymatic activity/volume] in Serum or Plasma 22 U/L 5 - 40 [facility] Alanine aminotransferase [Enzymatic activity/volume] in Seru m or Plasma 14 U/L 7 - 56 [facility] Alkaline phosphatase [Enzymatic activity/volume] in Serum or Plasma 59 U/L 38 - 126 [facility] ID Date Data Source [id number] 01/16/2020 08:18:00 AM EDT [facility] Name Value Range Interpretation Code Description Data Moni rce(s) Supporting Document(s) CVE PANEL [facility] LIPID PANEL Cholesterol [Mass/volume] in Serum or Plasma 235 MG/DL 131 - 200 H [facility] Deprecated Triglyceride [Mass/volume] in Serum or Plasma 129 MG/DL 3 5 - 160 [facility] HDL 62 MG/DL 29 - 86 [facility] Cholesterol in LDL [Mass/volume] in Serum or Plasma by Direc t assay 150 mg/dL 65 - 175 [facility] Cholesterol.total/Cholesterol in HDL [Mass Ratio] in Serum o r Plasma 3.8 3.2 - 4.4 [facility] LDL/HDL 2.42 1.47 - 3.22 [facility] ital CVE RISK CHOL/HDL LDL/HDLMEN: 1/2 AVERAGE 3.43 1.00 AVERAGE 4.97 3.55 2X AVERAGE 9.55 6.25 3X AVERAGE 23.99 7.99WOMEN: 1/2 AVERAGE 3.27 1.47 AVERAGE 4.44 3.22 2X AVERAGE 7.05 5.03 3X AVERAGE 11.04 6.14 ID Date Data Source [id number] 01/16/2020 08:18:00 AM EDT [facility] Name Value Range Interpretation Code Description Data Moni rce(s) Supporting Document(s) Creatine kinase [Enzymatic activity/volume] in Serum or Plasma 1 54 U/L 30 - 170 [facility] Procedure Social History Code Duration Value Status Description Data Source(s ) Smoking 02/25/2021 12:00:00 AM EDT Patient is a former smoker completed Patient is a former smoker [facility] Alcohol intake 12/30/2020 12:00:00 AM EDT Current drinker of al cohol (finding) completed Current drinker of alcohol (finding) [facility] Tobacco use and exposure 12/30/2020 12:00:00 AM EDT Never used co mpleted Never used [facility] Smoking 12/30/2020 12:00:00 AM EDT Former smoker completed Former smoker [facility] Smoking 11/26/2020 12:07:57 PM EDT Ex-smoker (finding) complet ed Ex-smoker (finding) KAREN ([facility]) Smoking 11/14/2020 12:00:00 AM EDT Never Smoked A Pipe complet ed Never Smoked A Pipe [facility] ([facility]) Alcohol intake 09/26/2020 12:00:00 AM EDT Current drinker of al cohol (finding) completed Current drinker of alcohol (finding) [facility] Alcohol intake 08/27/2020 12:00:00 AM EDT Current drinker of al cohol (finding) completed Current drinker of alcohol (finding) [facility] Vital Signs ID Date Data Source [id number] Name Value Range Interpretation Code Description Data Source(s) Systolic blood pressure 122 mm[Hg] 122 mm[Hg] [facility] Diastolic blood pressure 76 mm[Hg] 76 mm[Hg] [facility] ([facility], ) Heart rate 87 /min 87 /min [facility] ([facility], ) Oxygen saturation in Arterial blood by Pulse oximetry 902 % 902 % [facility] ([facility], ) Body height 62 [in_i] 62 [in_i] [facility] ([facility], ) 5'2" Body weight 105.00 [lb_av] 105.00 [lb_av] [facility] Body mass index (BMI) [Ratio] 19.2 kg/m2 19.2 k g/m2 [facility] ([facility], ) [place] body weight 110 [lb_av] 110 [lb_av] MED[facility] T ([facility]) Body weight 47.628 kg 47.628 kg [facility] ([facility]) Body surface area Derived from formula 1.45 m2 1.45 m2 [facility] ([facility]) Systolic blood pressure 108 mm[Hg] 108 mm[Hg] [facility] Diastolic blood pressure 76 mm[Hg] 76 mm[Hg] [facility] ([facility]) Heart rate 93 /min 93 /min [facility] ([facility]) Oxygen saturation in Arterial blood by Pulse oximetry 932 % 932 % [facility] ([facility]) Body height 62 [in_i] 62 [in_i] [facility] ([facility]) 5'2" Body weight 107.00 [lb_av] 107.00 [lb_av] [facility] ([facility]) Body mass index (BMI) [Ratio] 19.6 kg/m2 19.6 k g/m2 [facility] ([facility]) [place] body weight 110 [lb_av] 110 [lb_av] [facility] ([facility]) Body weight 48.535 kg 48.535 kg [facility] ([facility]) Body surface area Derived from formula 1.47 m2 1.47 m2 [facility] ([facility]) Inhaled oxygen concentration 28 % 28 % [facility] ([facility]) Respiratory rate 24 /min 24 /min [facility] ([facility]) Body temperature 97.8 [degF] 97.8 [degF] [facility] ([facility]) Body surface area Derived from formula 1.46 m2 1.46 m2 [facility] ([facility]) Oxygen saturation in Arterial blood by Pulse oximetry 98 % 98 % [facility] ([facility]) Inhaled oxygen flow rate 2 L/min 2 L/min [facility] ([facility]) Body height 61.8 [in_i] 61.8 [in_i] [facility] ([facility]) Heart rate 98 /min 98 /min [facility] ([facility]) Body weight 106 [lb_av] 106 [lb_av] KAREN ([facility]) Body mass index (BMI) [Ratio] 19.5 kg/m2 19.5 k g/m2 [facility] ([facility]) Systolic blood pressure 126 mm[Hg] 126 mm[Hg] [facility] ([facility]) Diastolic blood pressure 72 mm[Hg] 72 mm[Hg] [facility] ([facility]) Body surface area Derived from formula 1.46 m2 1.46 m2 [facility] ([facility]) Oxygen saturation in Arterial blood by Pulse oximetry 98 % 98 % [facility] ([facility]) Inhaled oxygen flow rate 2 L/min 2 L/min [facility] ([facility]) Inhaled oxygen concentration 28 % 28 % [facility] ([facility]) Respiratory rate 24 /min 24 /min [facility] ([facility]) Body temperature 97.8 [degF] 97.8 [degF] [facility] ([facility]) Body height 61.8 [in_i] 61.8 [in_i] [facility] ([facility]) Body weight 106 [lb_av] 106 [lb_av] [facility] ([facility]) Body mass index (BMI) [Ratio] 19.5 kg/m2 19.5 k g/m2 [facility] ([facility]) Systolic blood pressure 126 mm[Hg] 126 mm[Hg] [facility] ([facility]) Diastolic blood pressure 72 mm[Hg] 72 mm[Hg] [facility] ([facility]) Heart rate 98 /min 98 /min [facility] ([facility]) Body temperature 98.7 [degF] 98.7 [degF] [facility] ([facility]) Body mass index (BMI) [Ratio] 19.0 kg/m2 19.0 k g/m2 [facility] ([facility]) Systolic blood pressure 120 mm[Hg] 120 mm[Hg] [facility] Diastolic blood pressure 68 mm[Hg] 68 mm[Hg] [facility] ([facility]) Heart rate 66 /min 66 /min [facility] ([facility]) Body surface area Derived from formula 1.44 m2 1.44 m2 [facility] ([facility]) Oxygen saturation in Arterial blood by Pulse oximetry 93 % 93 % [facility] ([facility]) Inhaled oxygen flow rate 2 L/min 2 L/min [facility] ([facility]) Inhaled oxygen concentration 28 % 28 % [facility] ([facility]) Respiratory rate 24 /min 24 /min [facility] ([facility]) Body temperature 98.1 [degF] 98.1 [degF] [facility] ([facility]) Body height 61.8 [in_i] 61.8 [in_i] [facility] ([facility]) Body weight 103 [lb_av] 103 [lb_av] [facility] ([facility]) Systolic blood pressure 90 mm[Hg] 90 mm[Hg] [facility] ([facility]) Diastolic blood pressure 60 mm[Hg] 60 mm[Hg] [facility] ([facility]) Body surface area Derived from formula 1.44 m2 1.44 m2 [facility] ([facility]) Inhaled oxygen flow rate 2 L/min 2 L/min [facility] ([facility]) Inhaled oxygen concentration 28 % 28 % [facility] ([facility]) Respiratory rate 22 /min 22 /min [facility] ([facility]) Body temperature 97 [degF] 97 [degF] [facility] ([facility]) Body height 61.8 [in_i] 61.8 [in_i] [facility] ([facility]) Body weight 103 [lb_av] 103 [lb_av] [facility] ([facility]) Body mass index (BMI) [Ratio] 19.0 kg/m2 19.0 k g/m2 [facility] ([facility]) Systolic blood pressure 110 mm[Hg] 110 mm[Hg] [facility] ([facility]) Diastolic blood pressure 68 mm[Hg] 68 mm[Hg] [facility] ([facility]) Body height 61.8 [in_i] 61.8 [in_i] KRAEN ([facility]) Diastolic blood pressure 78 mm[Hg] 78 mm[Hg] [facility] ([facility]) Body surface area Derived from formula 1.47 m2 1.47 m2 [facility] ([facility]) Oxygen saturation in Arterial blood by Pulse oximetry 90 % 90 % [facility] ([facility]) Inhaled oxygen flow rate 0 L/min 0 L/min [facility] ([facility]) Inhaled oxygen concentration 21 % 21 % [facility] ([facility]) Respiratory rate 24 /min 24 /min [facility] ([facility]) Body temperature 97.6 [degF] 97.6 [degF] [facility] ([facility]) Body height 61.8 [in_i] 61.8 [in_i] [facility] ([facility]) Body weight 108 [lb_av] 108 [lb_av] [facility] ([facility]) Body mass index (BMI) [Ratio] 19.9 kg/m2 19.9 k g/m2 [facility] ([facility]) Systolic blood pressure 132 mm[Hg] 132 mm[Hg] [facility] Heart rate 66 /min 66 /min [facility] ([facility]) [place] body weight 110 [lb_av] 110 [lb_av] [facility] ([facility], ) Body mass index (BMI) [Ratio] 21.6 kg/m2 21.6 k g/m2 [facility] ([facility], ) Body weight 53.525 kg 53.525 kg [facility] ([facility], ) Body surface area Derived from formula 1.53 m2 1.53 m2 [facility] ([facility], ) Heart rate 80 /min 80 /min [facility] ([facility], ) Oxygen saturation in Arterial blood by Pulse oximetry 94 % 94 % [facility] ([facility], ) Room Air Body height 62 [in_i] 62 [in_i] [facility] ([facility], ) 5'2" Body weight 118.00 [lb_av] 118.00 [lb_av] [facility] ([facility], ) Systolic blood pressure 130 mm[Hg] 130 mm[Hg] M [facility] ([facility], ) Diastolic blood pressure 86 mm[Hg] 86 mm[Hg] [facility] ([facility], ) Inhaled oxygen concentration 21 % 21 % [facility] ([facility]) refuses to take off shoes Respiratory rate 24 /min 24 /min [facility] ([facility]) refuses to take off shoes Body temperature 98 [degF] 98 [degF] [facility] ([facility]) refuses to take off shoes Body height 61.8 [in_i] 61.8 [in_i] KAREN ([facility]) refuses to take off shoes Body weight 119 [lb_av] 119 [lb_av] KAREN ([facility]) refuses to take off shoes Systolic blood pressure 148 mm[Hg] 148 mm[Hg] [facility] refuses to take off shoes Diastolic blood pressure 90 mm[Hg] 90 mm[Hg] [facility] ([facility]) refuses to take off shoes Heart rate 84 /min 84 /min [facility] ([facility]) refuses to take off shoes Body mass index (BMI) [Ratio] 21.9 kg/m2 21.9 k g/m2 [facility] ([facility]) refuses to take off shoes Body surface area Derived from formula 1.53 m2 1.53 m2 [facility] ([facility]) refuses to take off shoes Oxygen saturation in Arterial blood by Pulse oximetry 93 % 93 % [facility] ([facility]) refuses to take off shoes Inhaled oxygen flow rate 0 L/min 0 L/min [facility] ([facility]) refuses to take off shoes Body surface area Derived from formula 1.55 m2 1.55 m2 [facility] ([facility]) Oxygen saturation in Arterial blood by Pulse oximetry 90 % 90 % [facility] ([facility]) Inhaled oxygen flow rate 0 L/min 0 L/min [facility] ([facility]) Inhaled oxygen concentration 21 % 21 % [facility] ([facility]) Body mass index (BMI) [Ratio] 22.5 kg/m2 22.5 k g/m2 [facility] ([facility]) Respiratory rate 22 /min 22 /min [facility] ([facility]) Body temperature 97.6 [degF] 97.6 [degF] [facility] ([facility]) Body height 61.8 [in_i] 61.8 [in_i] [facility] ([facility]) Body weight 122 [lb_av] 122 [lb_av] [facility] ([facility]) Systolic blood pressure 148 mm[Hg] 148 mm[Hg] G [facility] ([facility]) Diastolic blood pressure 88 mm[Hg] 88 mm[Hg] [facility] ([facility]) Diastolic blood pressure 90 mm[Hg] 90 mm[Hg] [facility] ([facility]) Heart rate 82 /min 82 /min [facility] ([facility]) Body weight 123 [lb_av] 123 [lb_av] [facility] ([facility]) Systolic blood pressure 152 mm[Hg] 152 mm[Hg] [facility] ([facility]) Body mass index (BMI) [Ratio] 22.6 kg/m2 22.6 k g/m2 [facility] ([facility]) Body surface area Derived from formula 1.55 m2 1.55 m2 [facility] ([facility]) Oxygen saturation in Arterial blood by Pulse oximetry 92.5 % 92.5 % [facility] ([facility]) Inhaled oxygen flow rate 0 L/min 0 L/min [facility] ([facility]) Inhaled oxygen concentration 21 % 21 % [facility] ([facility]) Respiratory rate 22 /min 22 /min [facility] ([facility]) Body temperature 97.8 [degF] 97.8 [degF] [facility] ([facility]) Body height 61.8 [in_i] 61.8 [in_i] [facility] ([facility]) Systolic blood pressure 144 mm[Hg] 144 mm[Hg] [facility] ([facility]) Diastolic blood pressure 84 mm[Hg] 84 mm[Hg] [facility] ([facility]) Body mass index (BMI) [Ratio] 23.0 kg/m2 23.0 k g/m2 [facility] ([facility]) Body surface area Derived from formula 1.56 m2 1.56 m2 [facility] ([facility]) Oxygen saturation in Arterial blood by Pulse oximetry 94 % 94 % [facility] ([facility]) Inhaled oxygen flow rate 0 L/min 0 L/min [facility] ([facility]) Inhaled oxygen concentration 21 % 21 % [facility] ([facility]) Respiratory rate 24 /min 24 /min [facility] ([facility]) Body temperature 697.6 [degF] 697.6 [degF] DEMIAN LITTLE ([facility]) Body height 61.8 [in_i] 61.8 [in_i] [facility] Body weight 125 [lb_av] 125 [lb_av] [facility] Systolic blood pressure 152 mm[Hg] 152 mm[Hg] [facility] ([facility]) Diastolic blood pressure 88 mm[Hg] 88 mm[Hg] [facility] ([facility]) Heart rate 78 /min 78 /min [facility] ID Date Data Source [id number] 02/03/2021 01:09:54 PM EDT [facility] Name Value Range Interpretation Code Description Data Source(s) WEIGHT RECORDED 116.00 pounds 116.00 pounds [facility] Height 62 Inches 062 Inches [facility] Hospital ID Date Data Source [id number] 09/07/2020 01:18:20 PM EDT [facility] Name Value Range Interpretation Code Description Data Source(s) WEIGHT RECORDED 107.2 lb 107.2 lb [facility] ID Date Data Source [id number] 06/27/2020 12:58:48 PM EST [facility] Name Value Range Interpretation Code Description Data Source(s) WEIGHT RECORDED 118.00 pounds 118.00 pounds [facility] Height 62 Inches 062 Inches [facility] Patient Treatment Plan of Care Planned Activity Planned Date Details Description Data Source (s) Levothyroxine Sodium 0.05 MG Oral Tablet 11/21/2020 12:00:00 AM EDT [facility]) Levothyroxine Sodium 0.075 MG Oral Tablet [Levoxyl] 11/22/19 12:00:00 AM EDT [facility]) Lisinopril 20 MG Oral Tablet 11/21/2020 12:00:00 AM EDT [facility]) Fluticasone Propionate 50 MCG/ACT Nasal Suspension 11/21/2020 12 :00:00 AM EDT [facility]) Trelegy Ellipta 100-62.5-25 MCG/INH Inhalation Aerosol Powder Breath Activated 11/21/2020 12:00:00 AM EDT [facility] ([facility]) Ergocalciferol [id number] UNT Oral Capsule [Drisdol] 11/21/2020 12:00:00 AM EDT [facility]) Trelegy Ellipta 100-62.5-25 MCG/INH Inhalation Aerosol Powder Breath Activated 10/09/2020 12:00:00 AM EDT [facility] ([facility]) Lisinopril 20 MG Oral Tablet 10/09/2020 12:00:00 AM EDT [facility]) Ergocalciferol [id number] UNT Oral Capsule [Drisdol] 10/09/2020 12:00:00 AM EDT [facility]) Fluticasone Propionate 50 MCG/ACT Nasal Suspension 10/09/2020 12 :00:00 AM EDT [facility]) Levothyroxine Sodium 0.075 MG Oral Tablet [Levoxyl] 09/12/19 12:00:00 AM EDT [facility]) Levothyroxine Sodium 0.05 MG Oral Tablet 09/11/2020 12:00:00 AM EDT [facility]) Lisinopril 20 MG Oral Tablet 09/11/2020 [facility] Fluticasone Propionate 50 MCG/ACT Nasal Suspension 08/12/2020 12 :00:00 AM EDT [facility] ([facility]) Ergocalciferol [id number] UNT Oral Capsule [Drisdol] 08/12/2020 12:00:00 AM EDT [facility] ([facility]) Trelegy Ellipta 100-62.5-25 MCG/INH Inhalation Aerosol Powder Breath Activated 07/30/2020 12:00:00 AM [facility] ([facility]) Levothyroxine Sodium 0.05 MG Oral Tablet 07/16/2020 12:00:00 AM [facility]) Lisinopril 20 MG Oral Tablet 07/09/2020 12:00:00 AM [facility]) 1 ML denosumab 60 MG/ML Prefilled Syringe [Prolia] 05/17/2020 12 :00:00 AM [facility]) Fluticasone Propionate 50 MCG/ACT Nasal Suspension 05/13/2020 12 :00:00 AM [facility]) Ergocalciferol [id number] UNT Oral Capsule [Drisdol] 05/01/2020 12:00:00 AM [facility]) Trelegy Ellipta 100-62.5-25 MCG/INH Inhalation Aerosol Powder Breath Activated 04/15/2020 12:00:00 AM [facility] ([facility]) Trelegy Ellipta 100-62.5-25 MCG/INH Inhalation Aerosol Powder Breath Activated 04/15/2020 12:00:00 AM [facility] ([facility]) Levothyroxine Sodium 0.05 MG Oral Tablet [Levoxyl] 04/02/2020 12 :00:00 AM [facility]) Levothyroxine Sodium 0.075 MG Oral Tablet [Levoxyl] 04/02/20 12:00:00 AM [facility]) Lisinopril 20 MG Oral Tablet [Zestril] 04/02/2020 12:00:00 AM [facility] ([facility]) Lisinopril 10 MG Oral Tablet [Zestril] 03/14/2020 12:00:00 AM [facility] ([facility]) Lisinopril 5 MG Oral Tablet [Zestril] 02/15/2020 12:00:00 AM EDT [facility] ([facility]) Lisinopril 10 MG Oral Tablet [Zestril] 02/15/2020 12:00:00 AM EDT [facility] ([facility]) Fluticasone Propionate 50 MCG/ACT Nasal Suspension 02/15/2020 12 :00:00 AM EDT [facility]) Levothyroxine Sodium 0.075 MG Oral Tablet [Levoxyl] 02/07/20 12:00:00 AM EDT [facility]) Ergocalciferol 76593 UNT Oral Capsule [Drisdol] 01/29/2020 12:00:00 AM EDT [facility]) 1 ML denosumab 60 MG/ML Prefilled Syringe [Prolia] 11/16/2019 12 :00:00 AM EDT [facility] ([facility]) Lisinopril 5 MG Oral Tablet [Zestril] 11/15/2019 12:00:00 AM EDT [facility]) Levothyroxine Sodium 0.05 MG Oral Tablet [Levoxyl] 11/15/2019 12 :00:00 AM EDT [facility]) 30 ACTUAT umeclidinium 0.0625 MG/ACTUAT / vilanterol 0.025 MG/ACTUAT Dry Powder Inhaler [Anoro] 11/15/2019 12:00:00 AM EDT [facility] ([facility]) Ergocalciferol 90445 UNT Oral Capsule [Drisdol] 11/15/2019 12:00:00 AM EDT [facility]) Fluticasone Propionate 50 MCG/ACT Nasal Suspension 11/15/2019 12 :00:00 AM EDT [facility])
[2021-03-12] MEDS ORDERED: LIDOCAINE 1% SDV 30ML VIAL As Ordered ONE (08:51)
[2021-03-12] MEDS ORDERED: CETACAINE SPRAY 5GM As Ordered ONE (08:51)
[2021-03-12] MEDS ORDERED: EPINEPHrine 1MG/10ML SYRINGE 1.5IN As Ordered ONE (08:51)
[2021-03-12] MEDS ORDERED: THROMBIN SOLN 5,000 UNITS VIAL As Ordered ONE (08:51)
[2021-03-12] MEDS ORDERED: ONDANSETRON 4MG/2ML VIAL As Ordered ONE (09:19)
[2021-03-12] MEDS ORDERED: ROCURONIUM BROMIDE 50 MG/5 ML VIAL As Ordered ONE (09:19)
[2021-03-12] MEDS ORDERED: fentaNYL 100 MCG/2 ML INJECTION (J3010) As Ordered ONE (09:19)
[2021-03-12] MEDS ORDERED: MIDAZOLAM INJ 2MG/2ML VIAL (J2250 PER 1MG) As Ordered ONE (09:19)
[2021-03-12] MEDS ORDERED: ACETAMINOPHEN 1000MG 100ML IV BTL (OFIRMEV) (J0131 PER 10MG) As Ordered ONE (09:19)
[2021-03-12] MEDS ORDERED: LIDOCAINE 2% 100MG/5ML SDV (FOR ANES.) As Ordered ONE (09:19)
[2021-03-12] MEDS ORDERED: SUGAMMADEX SODIUM 500 MG/5 ML VIAL (BRIDION) As Ordered ONE (09:19)
[2021-03-12] MEDS ORDERED: propofoL 200 MG/20 ML VIAL As Ordered ONE (09:19)
[2021-03-12] MEDS ORDERED: dexameTHASONE 4 MG/ML 1ML VIAL (J1100 PER 1MG) As Ordered ONE (09:19)
[2021-03-12] MEDS ORDERED: PHENYLephrine 500MCG 5ML (100MCG/ML) SYRINGE As Ordered ONE (09:25)
[2021-03-12] MEDS ORDERED: fentaNYL 100 MCG/2 ML INJECTION (J3010) IV PRN (10:45)
[2021-03-12] MEDS ORDERED: METOCLOPRAMIDE INJ 10MG/2ML VIAL (J2765 PER 1) IV PRN (10:45)
[2021-03-12] MEDS ORDERED: oxyCODONE 5MG TAB PO PRN (10:45)
[2021-03-12] MEDS ORDERED: ONDANSETRON 4MG/2ML VIAL IV PRN (10:45)
[2021-03-12] MEDS ORDERED: LR 1,000 ML IV SCH (10:45)
--- NOTE | 2021-03-12 10:50 | ROOR ---
Patient Name: Hannah Mccarty Procedure Date: 03/12/2021 8:59 AM Date of : 1950 Admit Type: Outpatient Age: 70 Note Status: Finalized Attending MD: Nuzhat Manuel MD Procedure: Bronchoscopy Indications: Right upper lobe mass, Right upper lobe nodule, Personal history of lung cancer Providers: Nuzhat Manuel MD (Doctor), Rajesh Garcia DO (1st Assisting Doctor) Referring MD: 1. NO/Unknown PCP 1. NO/Unknown PCP, Admin. (Referring MD) Requesting Physician: Medicines: Lidocaine 4% via nebulizer with Albuterol 2.5 mg, Cetacaine topical, Epinephrine 1 mg/10 mL topical 2 mL, General Anesthesia Complications: No immediate complications. Estimated blood loss: Minimal Procedure: Pre-Anesthesia Assessment: - Prior to the procedure, a History and Physical was performed, and patient medications and allergies were reviewed. The patient's tolerance of previous anesthesia was also reviewed. The risks and benefits of the procedure and the sedation options and risks were discussed with the patient. All questions were answered, and informed consent was obtained. Prior Anticoagulants: The patient has taken no previous anticoagulant or antiplatelet agents. ASA Grade Assessment: III - A patient with severe systemic disease. After reviewing the risks and benefits, the patient was deemed in satisfactory condition to undergo the procedure. - Patient identification and proposed procedure were verified prior to the procedure by the physician, the nurse, the anesthesiologist, the applied exercise physiologist and the nanotechnology technician. The procedure was verified in the procedure room. The Bronchoscope was introduced through the mouth, via the endotracheal tube (the patient was intubated for the procedure) and advanced to the tracheobronchial tree of both lungs. The procedure was accomplished without difficulty. The patient tolerated the procedure well. Findings: The trachea is of normal caliber. The lawrence is sharp. The entire tracheobronchial tree was examined to at least the first subsegmental level. Bronchial mucosa showed scattered pitting and webbing. There were thick cedillo mucoid secretions in left upper lobe. In the posterior segment of the right upper lobe there was a friable endobronchial mucosal lesion. [place] [employer] Electromagnetic navigation bronchoscopy was performed. The CT scan was used for planning purposes. A virtual bronchoscopic image was generated using the planning software. The targets in the apical segment of the right upper lobe and in the posterior segment of the right upper lobe were marked and pathways were created. After a complete airway exam, the Robotic EM navigation phase was then begun to locate the target lesion(s). Positioning centrally (in relation to the lesion) was confirmed using the Olympus radial probe US catheter. Endobronchial biopsies of a mucosal lesion were performed in the posterior segment of the right upper lobe using a forceps and sent for histopathology examination. For target 1 transbronchial biopsies of a nodule were performed in the apical segment of the right upper lobe using forceps and sent for histopathology examination. The procedure was guided by fluoroscopy. Transbronchial biopsy technique was selected because the sampling site was not visible endoscopically. For target 2 transbronchial biopsies of a mass were performed in the posterior segment of the right upper lobe using forceps and sent for histopathology examination. The procedure was guided by fluoroscopy. Transbronchial biopsy technique was selected because the sampling site was not visible endoscopically. Bronchoalveolar lavage was performed in the RUL posterior segment (B2) of the lung and sent for routine cytology and bacterial, AFB and fungal analysis. The return was blood-tinged. Mucous plugs were present in the return fluid. An endobronchial ultrasound endoscope was utilized in order to assist with fine needle aspiration in the subcarinal area. Transbronchial needle aspirations of a lymph node were performed in the subcarinal area using an Olympus EBUS-TBNA 21 gauge needle and sent for routine cytology. The procedure was guided by ultrasound. Impression: - Right upper lobe mass - Right upper lobe nodule - Personal history of lung cancer - Electromagnetic navigation bronchoscopy was performed. - An endobronchial biopsy was performed. - Transbronchial lung biopsies were performed. - Transbronchial lung biopsies were performed. - Bronchoalveolar lavage was performed. - Endobronchial ultrasound was performed. - A transbronchial needle aspiration was performed. Recommendation: - Await test results. Procedure Code(s): --- Professional --- 29850, Bronchoscopy, rigid or flexible, including fluoroscopic guidance, when performed; with transbronchial needle aspiration biopsy(s), trachea, main stem and/or lobar bronchus(i) 02146, Bronchoscopy, rigid or flexible, including fluoroscopic guidance, when performed; with transbronchial lung biopsy(s), single lobe 33551, Bronchoscopy, rigid or flexible, including fluoroscopic guidance, when performed; with bronchial alveolar lavage 00547, Bronchoscopy, rigid or flexible, including fluoroscopic guidance, when performed; with computer-assisted, image-guided navigation (List separately in addition to code for primary procedure[s]) 40612, Bronchoscopy, rigid or flexible, including fluoroscopic guidance, when performed; with transendoscopic endobronchial ultrasound (EBUS) during bronchoscopic diagnostic or therapeutic intervention(s) for peripheral lesion(s) (List separately in addition to code for primary procedure[s]) CPT copyright 2019 [employer]. All rights reserved. The codes documented in this report are preliminary and upon molded goods operator review may be revised to meet current compliance requirements. Attending Participation: I personally performed the entire procedure. Nuzhat Manuel MD 03/12/2021 10:50:41 AM Rajesh Garcia DO Number of Addenda: 0 Note Initiated On: 03/12/2021 8:59 AM
--- NOTE | 2021-03-12 11:05 | REP ---
INDICATION: post op in PACU. COMPARISON: 12/21/2017 TECHNIQUE: An AP sitting portable chest film was obtained FINDINGS: Cardiac lead wires are noted. Mild generalized hyperinflation is noted similar to the previous exam. Patchy areas of parenchymal opacification are seen in the right upper lobe that are new since the earlier exam. Consider aspiration and or pneumonia. Chronic appearing changes at the lung bases probably are unaltered. No effusion is noted. The heart is not enlarged. Minimal ectasia of the thoracic aorta with calcification in the aortic knob is unchanged. IMPRESSION: New areas of parenchymal opacification in the right upper lobe as above. 2. Generalized hyperinflation with chronic appearing changes at both lung bases. <Electronically signed by Felipe Crisostomo > 03/12/21 [id number]
[2021-03-12 11:10] VITALS: BP 143/63
== END 2021-03-12 11:36 | disposition home or self-care (01) ==
LOC: M SDC 08:06 → MERGE 09:40 → M SDC 11:36
PROVIDERS: ATTEND Internal Medicine Pulmonary Disease
DX: C34.31 Malignant neoplasm of lower lobe, right bronchus or lung (principal); I10 Essential (primary) hypertension; E03.9 Hypothyroidism, unspecified; J44.9 Chronic obstructive pulmonary disease, unspecified; Z87.891 Personal history of nicotine dependence; E78.5 Hyperlipidemia, unspecified; F32.9 Major depressive disorder, single episode, unspecified; Z91.041 Radiographic dye allergy status; Z79.899 Other long term (current) drug therapy
CPT/HCPCS: 31624; 31628; 31629; 31654; 71045; 76000; 87070; 87102; 87116; 87205; 87206; 88108; 88173; 88305; 88313; 88341; 88342; J0131; J1100; J2250; J2370; J2405; J3010; S2900

== ENCOUNTER → 2021-04-01 | Outpatient (CLI) | payer OTHER ==
[~2021-04-01] MED LIST changes: -ALBUTEROL SULFATE 2.5 MG/0.5 ML INH NEB SOLN INH ONE; -LIDOCAINE 1% MDV 20ML VIAL SQ PRN; -LIDOCAINE 4% INJ 5ML AMP NEB ONE; -LISI-898 PO; +LISI5TAB11 PO; -LR 1,000 ML IV ONE; +PROHANCE 279.3MG/ML 15ML VIAL As Ordered ONE
== END ==
LOC: M RAD 15:18
PROVIDERS: ATTEND Internal Medicine Pulmonary Disease
DX: C34.11 Malignant neoplasm of upper lobe, right bronchus or lung (principal); R90.82 White matter disease, unspecified
CPT/HCPCS: 70553; A9576

== ENCOUNTER → 2021-04-14 | Outpatient (CLI) | payer OTHER ==
[~2021-04-14] MED LIST changes: +LISI-898 PO; -LISI5TAB11 PO; -PROHANCE 279.3MG/ML 15ML VIAL As Ordered ONE
--- NOTE | 2021-04-18 07:27 | REP ---
INDICATION: STAGING RIGHT UPPER LOBE LUNG CANCER C34.11. COMPARISON: PET-CT, 12/26/2020. TECHNIQUE: Following the intravenous injection of 9.0 mCi of FDG and a standard uptake period, a noncontrast CT scan, followed by a PET scan were acquired along the length of the body from the base of the skull to the mid thighs. The noncontrast helical CT imaging was performed, without breath hold, for attenuation correction of PET images and anatomic correlation, but not for primary interpretation, as it is not a of standard diagnostic quality. Images were reviewed in the axial, coronal and sagittal planes. FINDINGS: Head and neck: There is a normal distribution of FDG activity in the visualized brain parenchyma. There is calcific vascular disease of both carotid bifurcations. There is an air-fluid level in the left maxillary sinus. There is normal uptake within the soft tissues of the neck and glandular structures. There is no lymphadenopathy identified. Chest: There are multiple irregular pulmonary nodules and masses as follows: -right lung apex, 11 x 11 mm, max SUV 2.2. -posterior segment of the upper lobe of the right lung, not present previously, 3.9 x 3.6 x 2.5 cm, max SUV 6.5. -posterior basilar segment of the lower lobe of the right lung, 14 x 10 mm, max SUV 1.2. -lingula, 14 x 7 mm, max SUV 1.2. The other foci of hypermetabolic activity in the lungs seen previously have resolved. There is moderate upper lobe predominant centrilobular emphysema. The heart size is normal. There is no pericardial effusion. There is calcific vascular disease of the thoracic aorta and coronary arteries. There is no adenopathy in the mediastinum, hilum or axilla by size criterion or metabolic activity. Abdomen and pelvis: There is a normal distribution of FDG activity within the gastrointestinal and genitourinary tract. No evidence of lymphadenopathy. There is calcific vascular disease of the abdominal aorta. There is almost complete obstruction of the infrarenal abdominal aorta by calcified plaque. There is colonic diverticulosis without diverticulitis. Musculoskeletal: There are no suspicious hypermetabolic, osteolytic or osteo sclerotic lesions. There is multilevel have disc disease of the thoracolumbar spine. There is moderate dextroscoliosis of the thoracolumbar spine. IMPRESSION: 1. Interval decrease in size, number and activity of multiple areas of masslike consolidation in both lungs. 2. Calcific vascular disease of the thoracoabdominal aorta and coronary arteries. There is almost complete obstruction of the infrarenal abdominal aorta by calcified plaque. 3. Apparent acute left maxillary sinusitis. 4. Other findings as noted. <Electronically signed by Bc Landry > 04/18/21 [id number]
== END ==
LOC: M PLARAD 13:20
PROVIDERS: ATTEND Internal Medicine Pulmonary Disease
DX: C34.11 Malignant neoplasm of upper lobe, right bronchus or lung (principal)
CPT/HCPCS: 78815; A9552